=== PATIENT | male | born 1950 | race Caucasian/White ===

== ENCOUNTER 2020-08-22 17:57 | Inpatient (IN) | payer MEDICARE, MEDICAID ==
[~2020-08-22] VITALS: Ht 177.8 cm; Wt 93.0 kg
[2020-08-22 18:30] LABS: BASOPHILS # (AUTO) 0.1 /CMM (0.0-0.2); BASOPHILS % (AUTO) 0.3 % (0.0-2.0); EOSINOPHILS % (AUTO) 0.1 % (0.0-6.0); HEMATOCRIT 47 % (39-51); HEMOGLOBIN 14.7 g/dL (13.5-17.5); LYMPHOCYTES # (AUTO) 2.1 /CMM (0.8-4.8); MEAN CORPUSCULAR HGB CONC 31 g/dl (31.0-36.0); MEAN CORPUSCULAR VOLUME 101 fL (80-96); MONOCYTES # (AUTO) 1.2 /CMM (0.1-1.30); MONOCYTES % (AUTO) 7.5 % (2.0-12.0); NEUTROPHILS # (AUTO) 12.6 /CMM (1.8-8.9); NEUTROPHILS % (AUTO) 79.1 % (43.0-81.0); PLATELET COUNT (AUTO) 129 /CMM (150-450)
--- NOTE | 2020-08-22 18:45 | NUR ---
Hep-Lock started
--- NOTE | 2020-08-22 18:45 | NUR ---
The half-way facility called 911 after the patient was noted to have shortness of breath, with oxygen saturations recorded at 88% on room air
--- NOTE | 2020-08-22 18:45 | NUR ---
The patient was placed on the hallway; septic work-up initiated, blood culture 2 sets with lactic acid
[2020-08-22 18:49] LABS: CALCIUM, SERUM 8.4 mg/dL (8.5-10.1); CARBON DIOXIDE 33 mmol/L (21-32); CHLORIDE 115 mmol/L (98-107); CREATININE 0.8 mg/dL (0.6-1.3); GLUCOSE 109 mg/dL (74-106); POTASSIUM 4.6 mmol/L (3.5-5.1); SODIUM SERUM 150 mmol/L (136-145); UREA NITROGEN, BLOOD 28 mg/dL (7-18)
[2020-08-22 18:55] LABS: ALANINE AMINOTRANSFERASE 69 U/L (12-78); ALBUMIN 2.4 g/dL (3.4-5.0); ALKALINE PHOSPHATASE 108 U/L (46-116); ASPARTATE AMINOTRANSFERASE 49 U/L (15-37); BILIRUBIN,DIRECT 0.3 mg/dL (0.0-0.2); BILIRUBIN,TOTAL 0.5 mg/dL (0.2-1.0); TOTAL PROTEIN, SERUM 7.5 g/dL (6.4-8.2)
[2020-08-22] MEDS ORDERED: DEXAMETHASONE SOD PHOSPHATE 10 MG/ML VIAL IV ONE (19:30)
[2020-08-22] MEDS ORDERED: CEFTRIAXONE 1GM BAG (ER ONLY) 50 ML IV ONE (19:30)
[2020-08-22] MEDS ORDERED: AZITHROMYCIN 500 MG in IV D5W 250 ML IV ONE (19:30)
--- NOTE | 2020-08-22 19:30 | NUR ---
REC'D PT IN BED, PT ON NON RBR, NON VERBAL, SAT ABOVE 96%, PT HERE FOR SOB. COVID+. PT ON ISOLATION. VSS. NOT IN ANY DISTRESS, WCTM
[2020-08-22] MEDS ORDERED: IV NS 0.9% 1,000 ML IV ONE (20:00)
[2020-08-22] MEDS ORDERED: AZITHROMYCIN 500 MG VIAL ONE (20:09)
--- NOTE | 2020-08-22 20:29 | NUR ---
covid swab collected sentto lab
[2020-08-22] MEDS ORDERED: HYDROCODONE/APAP 5/325MG TABLET PO PRN (21:00)
[2020-08-22] MEDS ORDERED: ACETAMINOPHEN 325 MG TABLET PO PRN (21:00)
[2020-08-22] MEDS ORDERED: IV NS 0.9% 1,000 ML IV PRN (21:00)
[2020-08-22] MEDS ORDERED: ONDANSETRON HCL/PF 4 MG/2 ML VIAL IVP PRN (21:00)
[2020-08-22] MEDS ORDERED: ENOXAPARIN SODIUM 40 MG/0.4 ML DISP.SYRIN SQ SCH (21:00)
[2020-08-22] MEDS ORDERED: ZOLPIDEM TARTRATE 5 MG TABLET PO PRN (21:00)
[2020-08-22] MEDS ORDERED: MAG HYDROX/AL HYDROX/SIMETH 30 ML UDC PO PRN (21:00)
[2020-08-22 21:35] LABS: D-DIMER 0.81 mg/L(FEU (0.17-0.50)
--- NOTE | 2020-08-22 23:37 | NUR ---
CALLED AFTER HOUR PHARMACY TO VERIFY THE ADMITTING ORDERS.
[2020-08-23 00:29] LABS: BILIRUBIN,URINE NEGATIVE (NEGATIVE); COLOR,URINE YELLOW (YELLOW); LEUKOCYTE ESTERASE ,URINE MODERATE (NEGATIVE); NITRITE, URINE POSITIVE (NEGATIVE); PROTEIN,URINE 100 mg/dl (NEGATIVE); UGLUCOSE NEGATIVE (NEGATIVE)
[2020-08-23 00:44] LABS: BACTERIA,URINE 3+ /HPF (None Seen); SQUAMOUS EPITHELIAL CELL,UR Few /HPF (None Seen); WBC,URINE 81-100 /HPF (0-3)
[2020-08-23] MEDS ORDERED: ENOXAPARIN SODIUM 40 MG/0.4 ML DISP.SYRIN SQ ONE ×2 (01:15→13:49)
[2020-08-23 05:41] LABS: BASOPHILS % (AUTO) 0.1 % (0.0-2.0); EOSINOPHILS % (AUTO) 0.1 % (0.0-6.0); HEMATOCRIT 43 % (39-51); HEMOGLOBIN 13.6 g/dL (13.5-17.5); LYMPHOCYTES # (AUTO) 1.5 /CMM (0.8-4.8); LYMPHOCYTES % (AUTO) 11.1 % (20.0-44.0); MEAN CORPUSCULAR HGB CONC 31 g/dl (31.0-36.0); MEAN CORPUSCULAR VOLUME 100 fL (80-96); MONOCYTES # (AUTO) 0.8 /CMM (0.1-1.30); NEUTROPHILS # (AUTO) 11.5 /CMM (1.8-8.9); NEUTROPHILS % (AUTO) 82.7 % (43.0-81.0); PLATELET COUNT (AUTO) 124 /CMM (150-450); RED BLOOD CELL COUNT(AUTO) 4.34 MIL/uL (4.5-6.0); WHITE BLOOD COUNT (AUTO) 13.9 K/uL (4.3-11.0)
[2020-08-23 06:06] LABS: CALCIUM, SERUM 8.3 mg/dL (8.5-10.1); CREATININE 0.6 mg/dL (0.6-1.3); MAGNESIUM 2.8 mg/dL (1.8-2.4); PHOSPHORUS 2.9 mg/dL (2.5-4.9)
--- NOTE | 2020-08-23 06:19 | NUR ---
NO ACUTE EVENTS, F/C DRANIED, OUTPUT ABOUT 800CC, ON MONITOR, VSS, NAD. WCTM
[2020-08-23] MEDS: ENOXAPARIN SODIUM 40 MG/0.4 ML DISP.SYRIN SQ SCH (13:00)
--- NOTE | 2020-08-23 13:00 | NUR ---
adl care provided. x1 bm today. cleaned pt, turned and repositioned for comfort. kept clean and dry
[2020-08-23] MEDS ORDERED: DEXAMETHASONE SOD PHOSPHATE 10 MG/ML VIAL IV ONE (16:00)
[2020-08-23] MEDS ORDERED: DEXAMETHASONE SOD PHOSPHATE 10 MG/ML VIAL ONE (16:09)
--- NOTE | 2020-08-23 16:17 | NUR ---
pt gtube flushed with 200cc h20 per md orders
[2020-08-23] MEDS: ENSURE ENLIVE 237 ML LIQUID (VANILLA) PO SCH (17:26)
[2020-08-23] MEDS ORDERED: CEFTRIAXONE 1GM BAG (ER ONLY) 50 ML IV ONE (17:47)
[2020-08-23] MEDS ORDERED: CEFTRIAXONE 1 G in IV D5W 50 ML IV SCH (19:00)
[2020-08-23] MEDS ORDERED: AZITHROMYCIN 500 MG in IV D5W 250 ML IV SCH (20:00)
--- NOTE | 2020-08-23 23:33 | NUR ---
PATIENT IS AWAKE. PATIENT IS DIFFICULT TO UNDERSTAND DUE TO DISABILITY. PATIENT IS ASKED IF HE IS OKAY. PATIENT NODS AND STATES YES. PATIENT'S CALL LIGHT IS WITHIN REACH. BED IS AT THE LOWEST POSITION. PATIENT IS BREATHING EVENLY AND UNLABORED ON NON-REBREATHER 15L. WILL CONTINUE TO MONITOR THE PATIENT CLOSELY.
[2020-08-24] MEDS ORDERED: ENOXAPARIN SODIUM 40 MG/0.4 ML DISP.SYRIN SQ ONE ×2 (00:04→10:34)
[2020-08-24] MEDS: ENOXAPARIN SODIUM 40 MG/0.4 ML DISP.SYRIN SQ SCH ×2 (00:11→11:12)
[2020-08-24 05:33] LABS: BASOPHILS % (AUTO) 0.4 % (0.0-2.0); HEMATOCRIT 39 % (39-51); HEMOGLOBIN 12.4 g/dL (13.5-17.5); LYMPHOCYTES # (AUTO) 1.3 /CMM (0.8-4.8); LYMPHOCYTES % (AUTO) 13.1 % (20.0-44.0); MEAN CORPUSCULAR HGB CONC 32 g/dl (31.0-36.0); MEAN CORPUSCULAR VOLUME 100 fL (80-96); MONOCYTES # (AUTO) 0.9 /CMM (0.1-1.30); MONOCYTES % (AUTO) 9.2 % (2.0-12.0); NEUTROPHILS # (AUTO) 7.9 /CMM (1.8-8.9); NEUTROPHILS % (AUTO) 77.3 % (43.0-81.0); PLATELET COUNT (AUTO) 126 /CMM (150-450); RED BLOOD CELL COUNT(AUTO) 3.88 MIL/uL (4.5-6.0); WHITE BLOOD COUNT (AUTO) 10.2 K/uL (4.3-11.0)
[2020-08-24] MEDS ORDERED: VANCOMYCIN 1 GM in IV D5W 250ml IV SCH (06:00)
[2020-08-24 06:02] LABS: CALCIUM, SERUM 8.2 mg/dL (8.5-10.1); CREATININE 0.6 mg/dL (0.6-1.3)
[2020-08-24] MEDS ORDERED: DEXAMETHASONE SOD PHOSPHATE 10 MG/ML VIAL ONE (09:50)
[2020-08-24] MEDS: ENSURE ENLIVE 237 ML LIQUID (VANILLA) PO SCH ×4 (10:19→19:04)
[2020-08-24] MEDS: DEXAMETHASONE SOD PHOSPHATE 10 MG/ML VIAL IV SCH (10:20)
--- NOTE | 2020-08-24 15:40 | NUR ---
REPORT GIVEN TO JORDAN GOTTLIEB FOR MICHELLE
--- NOTE | 2020-08-24 16:03 | NUR ---
EGG CRATER NOTES RECEIVED PT FROM E.R. STAFF VIA VALENTIN, PT IS AWAKE, ALERT AND VERBALLY RESPONSIVE, NOT IN DISTRESS, NO SIGN OF PAIN, ASSISTED TO BED, MADE COMFORTABLE, ROOM SET UP ORIENTATION PROVIDED TO PT, KEPT WARM AND COMFORTABLE IN BED.
--- NOTE | 2020-08-24 16:03 | NUR ---
PT TRANSPORTED TO UNIT ON GURNEY WITH EMT AND RN AT BEDSIDE W/ ACLS PROTOCOL. NAD NOTED DURING TRANSPORT
[2020-08-24 16:39] VITALS: BP 126/72
--- NOTE | 2020-08-24 19:30 | NUR ---
telecommunications facility examiner opening note received patient in bed. a/ox1. unable to make out what hes trying to say. on oxygen 15l/min via nonrebreather. respirations are even and unlabored. no s/s sob. no c/o pain at this time. external tele monitor reads sinus tach with bbb hr 103. in no apparent distress. iv access in left hand #20 patent and saline locked. gtube is present, aspirated, no residual, flushed with no resistance. foleuy catheter is present, draining to gravity. bed is low and locked, hob elevated in semi fowlers, side rials up x3, call light within reach. will continue to monitor throughout shift.
[2020-08-24 20:00] VITALS: BP 142/74
[2020-08-24] MEDS ORDERED: MEROPENEM 500 MG in IV NS 0.9% 50 ML IV SCH (21:00)
[2020-08-24] MEDS ORDERED: VANCOMYCIN 1 GM in IV D5W 250ml IV ONE ×2 (21:00→23:45)
[2020-08-24] MEDS: IV D5W 1,000 ML IV PRN (21:47)
[2020-08-24] MEDS: MEROPENEM 1 G in IV NS 0.9% 100 ML IV SCH (21:47)
[2020-08-24] MEDS ORDERED: VANCOMYCIN 500 MG in IV D5W 100ml IV ONE (22:00)
--- NOTE | 2020-08-24 22:07 | NUR ---
telegraph repeater mechanic notes informed Tano Gil DNP that patient has 2 vanco orders scheduled for tonight. 500mg vanco once and vanco 1gm once, asked for clarification if i should give both doses. MD telephone order no, give 1gm now and pharmacy to dose. Asked if 0600 vanco 1gm should also be discontinued, states yes DC, pharmacy will dose. order noted and carried out.
[2020-08-25] VITALS: BP 117/65
[2020-08-25] MEDS: ENSURE ENLIVE 237 ML LIQUID (VANILLA) PO SCH ×3 (00:31→12:16)
[2020-08-25] MEDS: ENOXAPARIN SODIUM 40 MG/0.4 ML DISP.SYRIN SQ SCH ×2 (00:34→12:21)
--- NOTE | 2020-08-25 00:37 | NUR ---
television installer note administered the scheduled 2100 vanco 1gm late d/t merrem running for 3 hours. vanco 1gm scheduled for 2[address] [facility] d/t already scanned the 2100 dose now.
[2020-08-25 04:00] VITALS: BP 117/64
[2020-08-25] MEDS: MEROPENEM 1 G in IV NS 0.9% 100 ML IV SCH ×3 (05:11→20:08)
[2020-08-25] MEDS ORDERED: VANCOMYCIN 1 GM in IV D5W 250ml IV SCH (06:00)
--- NOTE | 2020-08-25 07:05 | NUR ---
telecommunications engineer closing note patient resting in bed. a/ox1. . remains on oxygen 15l/min via nonrebreather. o2 sat range from 90-96%. no pain. external tele monitor reads sinus tach. no distress. iv access in left hand #20 patent and saline locked. gtube is maintained, clamped. cortez catheter is maintained, draining to gravity. bed remains low and locked, hob elevated in semi fowlers, side rials up x3, call light within reach. will endorse ton ext shift.
--- NOTE | 2020-08-25 07:40 | NUR ---
CARTRIDGE GAUGER OPENING NOTE PATIENT IS IN BED RESTING. PATIENT IS IN NO ACUTE DISTRESS. PATIENT IS ON 15L NON REBREATHER MASK. NO SOB NOTED. HOB ELEVATED. PATIENT IS ON TELE MONITOR READING ST WITH BBB 92. SAFETY PRECAUTIONS ARE IN PLACE. BED IS LOCKED AND IN THE LOWEST POSITION. CALL LIGHT WITHIN REACH. CONTINUE CLOSELY MONITORING PATIENT THOUGHT OUT THE SHIFT.
--- NOTE | 2020-08-25 08:26 | NUR ---
WOUND CARE CONSULT: REVIEWED CHART, NURSING DOCUMENTATION AND PHOTOS WHICH INDICATE SACRAL PARTIAL THICKNESS WOUND, PRESENT ON ADMISSION. RECOMMENDATIONS MADE FOR SKIN PROTECTION. DISCUSSED WITH NURSING STAFF. PT BECOMES AGITATED AT TIMES PER NURSING STAFF. M D IN AGREEMENT WITH PLAN OF CARE.
[2020-08-25] MEDS ORDERED: HYDROGEL DRESSING 90 GM TUBE TP PRN (09:00)
[2020-08-25] MEDS: Z GUARD REMEDY 2 OZ OINT TP SCH (09:16)
[2020-08-25] MEDS: HYDROGEL DRESSING 90 GM TUBE TP SCH (09:17)
[2020-08-25] MEDS: VANCOMYCIN 1 GM in IV D5W 250ml IV SCH ×2 (10:20→16:31)
[2020-08-25] MEDS: DEXAMETHASONE SOD PHOSPHATE 10 MG/ML VIAL IV SCH (10:20)
[2020-08-25 13:57] LABS: ABG BASE EXCESS 3.8 mmol/L; ABG OXYGEN SATURATION 90.2 % (92.0-98.5); ABG PCO2 62.5 mmHg (35.0-45.0); ABG PH 7.323 (7.350-7.450); ABG PO2 59.5 mmHg (75.0-100.0); AaDO2 445.3 mmHg; COHb 0.4 % (0.5-1.5); MetHb 0.2 % (0.0-1.5); O2Hb 89.7 % (94.0-97.0); SITE, ABG Right Radial; VENT MODE, BG 15L NRB
[2020-08-25 15:23] LABS: CALCIUM, SERUM 8.8 mg/dL (8.5-10.1); CREATININE 0.7 mg/dL (0.6-1.3); POTASSIUM 4.4 mmol/L (3.5-5.1)
[2020-08-25] MEDS ORDERED: JEVITY 1.2 CAL 1,000 ML BOTTLE GT PRN ×2 (16:00→18:25)
[2020-08-25] MEDS: IPRATROPIUM/ALBUTEROL INHALER IH SCH (18:00)
--- NOTE | 2020-08-25 18:37 | NUR ---
SHOEBLACK CLOSING NOTE PATIENT KEPT CLEAN AND DRY THOROUGH OUT THE SHIFT. NO SIGNS OF CUTE DISTRESS NOTED. PATIENT IS ON OXYGEN 15L NRB MASK. NO SOB NOTED. HOB ELEVATED. PATIENT IS ON SENIOR CYBER INTELLIGENCE ANALYST READING ST WITH BBB 98. SAFETY PRECAUTIONS ARE IN PLACE. BED IS LOCKED AND IN LOWEST POSITION. SIDE RAILS ARE UP ALL LIGHT WITHIN REACH. ENDORSE PATIENT FOR CONTINUES CARE TO FISCAL ECONOMIST NURSE.
--- NOTE | 2020-08-25 19:30 | NUR ---
RN NOTE RECEIVED PATIENT IN BED, ON SEMI BULLOCK'S. PATIENT IN NO S/SX OF ACUTE DISTRESS AT THIS TIME. PATIENT'S BREATHING IS EVEN AND UNLABORED. PATIENT IS ON 15L OF OXYGEN VIA NON REBREATHER MASK, O2 SAT AT 93%. PATIENT ON TELE MONITOR READING SR WITH BBB, HR IS 89. NOTED IV SITE AT R HAND 22G WITH D5W INFUSING AT 75 ML/HR, PATENT AND FLUSHING WELL, NO S/S OF INFECTION OR INFILTRATION. NOTED GTUBE INTACT, MINIMAL RESIDUAL NOTED, WITH JEVITY 1.2 REGULATED AT 30 ML/HR. CARRERA CATHETER CONNECTED TO URINE BAG IN PLACE, DRAINING TO A CLEAR YELLOW URINE. SAFETY MEASURES IMPLEMENTED PER PROTOCOL. PATIENT BED ALARM IS ON. HEAD OF BED ELEVATED. BED IS LOCKED, IN LOWEST POSITION AND SIDE RAILS UP. CALL LIGHT WITHIN REACH OF THE PATIENT. WILL CONTINUE TO MONITOR AND REASSESS FOR ANY CHANGES.
[2020-08-25 20:00] VITALS: BP 119/73
[2020-08-26] VITALS (7 sets, daily range): BP systolic 117–144; BP diastolic 72–85
[2020-08-26] MEDS: ENOXAPARIN SODIUM 40 MG/0.4 ML DISP.SYRIN SQ SCH ×2 (00:33→12:55)
[2020-08-26] MEDS: VANCOMYCIN 1 GM in IV D5W 250ml IV SCH ×2 (00:33→09:00)
[2020-08-26] MEDS: MEROPENEM 1 G in IV NS 0.9% 100 ML IV SCH ×3 (05:02→20:00)
[2020-08-26] MEDS: IV D5W 1,000 ML IV PRN (05:08)
[2020-08-26] MEDS: IPRATROPIUM/ALBUTEROL INHALER IH SCH ×4 (05:25→17:54)
[2020-08-26 06:31] LABS: CALCIUM, SERUM 8.7 mg/dL (8.5-10.1); CREATININE 0.5 mg/dL (0.6-1.3); POTASSIUM 4.1 mmol/L (3.5-5.1)
--- NOTE | 2020-08-26 08:00 | NUR ---
CARPET CUTTER OPENING NOTE PATIENT IS IN BED RESTING. PATIENT IS IN NO ACUTE DISTRESS. PATIENT IS ON 15L NON REBREATHER MASK. O2 SAT 89% DENIES SOB. HOB ELEVATED. PATIENT IS ON TELE MONITOR READING ST WITH BBB . SAFETY PRECAUTIONS ARE IN PLACE. BED IS LOCKED AND IN THE LOWEST POSITION. TURNED EVERY TWO HRS.CALL LIGHT WITHIN REACH. CLOSELY MONITORED
[2020-08-26] MEDS: DEXAMETHASONE SOD PHOSPHATE 10 MG/ML VIAL IV SCH (09:27)
[2020-08-26] MEDS: Z GUARD REMEDY 2 OZ OINT TP PRN (09:28)
[2020-08-26] MEDS: Z GUARD REMEDY 2 OZ OINT TP SCH (09:29)
[2020-08-26] MEDS: HYDROGEL DRESSING 90 GM TUBE TP SCH (09:29)
--- NOTE | 2020-08-26 09:30 | NUR ---
Vanco trough level is 27-held vanco IV notified pharmacist.
[2020-08-26 10:05] LABS: ABG BASE EXCESS 7.4 mmol/L; ABG PCO2 54.6 mmHg (35.0-45.0); ABG PH 7.408 (7.350-7.450); ABG PO2 47.4 mmHg (75.0-100.0); AaDO2 465.7 mmHg; COHb 0.8 % (0.5-1.5); MetHb 0.3 % (0.0-1.5); O2Hb 83.1 % (94.0-97.0); SITE, ABG Right Radial; VENT MODE, BG NRB
--- NOTE | 2020-08-26 10:32 | NUR ---
ABG RESULT WAS IN AND NOTIFIED DR DURBIN WITH ORDERS TO PUT PT ON HIGH FLOW AT 60 LITERS O2.
--- NOTE | 2020-08-26 12:00 | NUR ---
PT MADE SEVERAL ATTEMPTS OF PULLING HIS O2 TUBINGS VIA HIGH FLOW AT 60L INSPITE OF EXPLAINING THE RISKS AND BENEFITS.NOTIFIED LEONOR SINGLETARY AND OBTAINED RESTRAINT ORDERS FOR BILATERAL SOFT WRIST RESTRAINTS.
[2020-08-26 13:49] LABS: ABG BASE EXCESS 6.3 mmol/L; ABG OXYGEN SATURATION 98.2 % (92.0-98.5); ABG PCO2 46.3 mmHg (35.0-45.0); ABG PH 7.448 (7.350-7.450); ABG PO2 113.7 mmHg (75.0-100.0); COHb 0.1 % (0.5-1.5); MetHb 0.3 % (0.0-1.5); O2Hb 97.8 % (94.0-97.0); SITE, ABG Right Radial
--- NOTE | 2020-08-26 17:55 | NUR ---
pt tolerated GT Jevity feeding well with no residuals at 60 ml/hr advanced Jevity feeding to 70 ml/hr and will monitor.
[2020-08-26] MEDS: JEVITY 1.2 CAL 1,000 ML BOTTLE GT PRN (18:25)
--- NOTE | 2020-08-26 19:10 | NUR ---
TELE/RN OPENING NOTES: PT. IS A/OX1. VERBALLY RESPONSIVE, NOT TO CLEAR D/T NASAL CARCINOMA. ABLE TO VERBALIZE NEEDS. ON TELE WITH READING OF SR. CARRERA CATH NOTED DRAINING MISSAEL COLORED URINE. NOTED WITH ACUTE MEDICAL SOFT WRIST RESTRAINTS D/T PATIENT PULLING OUT HIS HIGH FLOW NASAL CANNULA. GTUBE FEEDING JEVITY 1.2 RUNNING AT 70MLS/HR. NO RESIDUALS NOTED. IV ON THE RIGHT HAND #22G INTACT AND PATENT, SL. SAFETY MEASURES IN PLACE AND BED IN LOW, LOCKED POSITION WITH SR UPX2. CALL LIGHT WITHIN REACH. WILL CONTINUE TO MONITOR ACCORDINGLY.
[2020-08-26] MEDS: VANCOMYCIN 1 GM in IV D5W 250 ML IV SCH (23:10)
--- NOTE | 2020-08-26 23:10 | NUR ---
TELE/RN NOTES: PT.'S VANCO TROUGH RESULT CAME BACK. 16. OKAY TO ADMINISTER VANCOMYCIN 1G 250ML ORDERED Q12H.
[2020-08-27] VITALS (9 sets, daily range): BP systolic 128–138; BP diastolic 65–86
[2020-08-27] MEDS: ENOXAPARIN SODIUM 40 MG/0.4 ML DISP.SYRIN SQ SCH ×3 (00:28→23:21)
[2020-08-27] MEDS: IPRATROPIUM/ALBUTEROL INHALER IH SCH ×5 (00:37→23:16)
[2020-08-27] MEDS: MEROPENEM 1 G in IV NS 0.9% 100 ML IV SCH ×3 (04:20→21:25)
--- NOTE | 2020-08-27 06:58 | NUR ---
TELE/RN CLOSING NOTES: PT. REMAINS A/OX1. VERY COOPERATIVE WITH PT CARE. VERBALLY RESPONSIVE, ON TELE WITH READING OF SR. CARRERA CATH NOTED DRAINING MISSAEL COLORED URINE. NOTED WITH ACUTE MEDICAL SOFT WRIST RESTRAINTS D/T PATIENT PULLING OUT HIS HIGH FLOW NASAL CANNULA. SKIN AND CIRCULATION CHECKED. GTUBE FEEDING JEVITY 1.2 RUNNING AT 70MLS/HR. TOLERATING WELL. NO RESIDUALS NOTED. FLUSHED WITH 200 CC OF WATER ORDERED. IV ON THE RIGHT HAND #22G INTACT AND PATENT, SL. SAFETY MEASURES IN PLACE AND BED IN LOW, LOCKED POSITION WITH SR UPX2. CALL LIGHT WITHIN REACH. ALL DUE MEDS GIVEN ORDERED. ALL NURSING NEEDS MET AND RENDERED. WILL ENDORSE TO DAY SHIFT FOR MICHELLE.
--- NOTE | 2020-08-27 07:00 | NUR ---
RN OPENING NOTES RECEIVED PT AWAKE AT THIS TIME. PT IS AOX1. NO SOB NOTED, NO S/S OF ANY APPARENT DISTRESS NOTED. NO C/O PAIN NOTED AT THIS TIME. RESPIRATIONS ARE EVEN AND UNLABORED WITH EQUAL RISE AND FALL IN CHEST. PT NOTED ON HIGH FLOW OXYGEN AT 60LPM WITH FIO2 @ 100%. PT ON EXTERNAL ASSISTANT KITCHEN MANAGER READING SR IN THE 90s. IV ACCESS NOTED IN RIGHT HAND G#22, INTACT, PATENT AND FLUSHING WELL. SAFETY PRECAUTION IN PLACE AND MAINTAINED AT ALL TIMES. BED IN LOWEST LOCKED POSITION, HOB ELEVATED, SIDE RAILS UP X 2, CALL LIGHT AND TABLE WITHIN REACH . WILL CONTINUE WITH PLAN OF CARE .
[2020-08-27 07:58] LABS: BASOPHILS % (AUTO) 0.2 % (0.0-2.0); EOSINOPHILS % (AUTO) 0.6 % (0.0-6.0); HEMATOCRIT 39 % (39-51); HEMOGLOBIN 12.8 g/dL (13.5-17.5); LYMPHOCYTES # (AUTO) 2.1 /CMM (0.8-4.8); LYMPHOCYTES % (AUTO) 16.1 % (20.0-44.0); MEAN CORPUSCULAR HGB CONC 33 g/dl (31.0-36.0); MEAN CORPUSCULAR VOLUME 95 fL (80-96); MONOCYTES # (AUTO) 1.7 /CMM (0.1-1.30); MONOCYTES % (AUTO) 13.1 % (2.0-12.0); NEUTROPHILS # (AUTO) 9.1 /CMM (1.8-8.9); PLATELET COUNT (AUTO) 179 /CMM (150-450); RED BLOOD CELL COUNT(AUTO) 4.12 MIL/uL (4.5-6.0)
[2020-08-27 08:18] LABS: CALCIUM, SERUM 8.6 mg/dL (8.5-10.1); CREATININE 0.5 mg/dL (0.6-1.3); MAGNESIUM 2.2 mg/dL (1.8-2.4); PHOSPHORUS 4.1 mg/dL (2.5-4.9); POTASSIUM 4.6 mmol/L (3.5-5.1)
[2020-08-27] MEDS: DEXAMETHASONE SOD PHOSPHATE 10 MG/ML VIAL IV SCH (09:22)
[2020-08-27] MEDS: HYDROGEL DRESSING 90 GM TUBE TP SCH (09:23)
[2020-08-27] MEDS: Z GUARD REMEDY 2 OZ OINT TP SCH (09:24)
[2020-08-27] MEDS: VANCOMYCIN 1 GM in IV D5W 250 ML IV SCH ×2 (10:47→22:52)
--- NOTE | 2020-08-27 13:00 | NUR ---
PT IV ACCESS DISLODGED, PRESSURE APPLIED, SECURED WITH GAUZE AND TAPE. NO S/O BLEEDING NOTED. WILL CONTINUE TO MONITOR
--- NOTE | 2020-08-27 13:05 | NUR ---
INSERTED IV ACCESS IN RFA G#22, AT THIS TIME. GOOD BLOOD RETURN NOTED, IV INTACT, PATENT AND FLUSHING WELL. PT TOLERATED WELL. WILL CONTINUE TO MONITOR
[2020-08-27 13:51] LABS: BAND % (MANUAL) 5 % (0.0-5.0); LYMPHOCYTES % (MANUAL) 15 % (16-48); MONOCYTES % (MANUAL) 16 % (0-11.0); MYELOCYTES % 3 % (0-0); NEUTROPHILS % (MANUAL) 61 (42-76)
[2020-08-27] MEDS: JEVITY 1.2 CAL 1,000 ML BOTTLE GT PRN (15:40)
--- NOTE | 2020-08-27 19:00 | NUR ---
RN CLOSING NOTES PT AWAKE IN BED AT THIS TIME. PT REMAINED STABLE THROUGHOUT SHIFT. ALL CARE, NEED, MEDICATIONS AND TREATMENT ADMINISTERED ANTICIPATED PER ORDER. PT KEPT CLEAN AND DRY. G-TUBE CARE PROVIDED. PT STABLE ON HIGH FLOW SATURATING IN THE 90s. CARRERA CATHETER CARE PROVIDED. PT REPOSITIONED Q2HR AND PRN. ASPIRATION AND SAFETY PRECAUTION IN PLACE AND MAINTAINED AT ALL TIMES. BED IN LOWEST LOCKED POSITION, HOB ELEVATED, SIDE RAILS UP X 2, CALL LIGHT AND TABLE WITHIN REACH. ENDORSED TO MAGNETO REPAIRER NURSE FOR MICHELLE
--- NOTE | 2020-08-27 19:20 | NUR ---
TELE/RN OPENING NOTES: PT. IS A/OX1. VERBALLY RESPONSIVE. ABLE TO VERBALIZE NEEDS. ON TELE MONITOR WITH READING OF ST 103 AT THIS TIME. CARRERA CATH NOTED DRAINING MISSAEL COLORED URINE. NOTED WITH ACUTE MEDICAL SOFT WRIST RESTRAINTS D/T PATIENT PULLING OUT HIS HIGH FLOW NASAL CANNULA. G-TUBE FEEDING JEVITY 1.2 RUNNING AT 70MLS/HR. NO RESIDUALS NOTED. TO BE FLUSHED 200CC PER SHIFT. NEW IV MIDLINE INSERTED BY MARK MENDIOLA NURSE. ORDERED BY STU SANCHEZ. IV ACCESS LOCATED ON THE ADITYA MIDLINE #18G INTACT AND PATENT, SL. SAFETY MEASURES IN PLACE AND BED IN LOW, LOCKED POSITION WITH SR UPX2. CALL LIGHT WITHIN REACH. WILL CONTINUE TO MONITOR ACCORDINGLY.
[2020-08-28] VITALS: BP_SYST 151; BP_DIAS 47; BP_DIAS 89
[2020-08-28 04:00] VITALS: BP 133/78
[2020-08-28] MEDS: MEROPENEM 1 G in IV NS 0.9% 100 ML IV SCH ×2 (04:08→13:18)
[2020-08-28] MEDS: IPRATROPIUM/ALBUTEROL INHALER IH SCH ×4 (05:21→23:25)
--- NOTE | 2020-08-28 07:04 | NUR ---
FILM PROCESSOR OPENING NOTES RECEIVED PT AWAKE IN BED AT THIS TIME. PT IS AOX1. PT MUMBLES. NO SOB NOTED, NO S/S OF ANY APPARENT DISTRESS NOTED. NO C/O PAIN NOTED AT THIS TIME. RESPIRATIONS ARE EVEN AND UNLABORED WITH EQUAL RISE AND FALL IN CHEST. PT ON HIGH FLOW OXYGEN AT 60LPM WITH FIO2 @ 100%. PT NOTED WITH BILATERAL RESTRAINTS, SKIN AROUND RESTRAINTS INTACT, GOOD CIRCULATION NOTED, CAPILLARY REFILL <3SECONDS, PULSES PRESENT BILATERALLY. PT ON EXTERNAL ANIMAL CONTROL OFFICER READING SR 99. IV ACCESS NOTED IN RFA G#22 AND ADITYA MIDLINE, BOTH INTACT, PATENT AND FLUSHING WELL. CARRERA CATHETER IN PLACE DRAINING TO GRAVITY CLEAR TEA COLOR URINE OUTPUT. ASPIRATION, RESPIRATORY AND SAFETY PRECAUTION IN PLACE AND MAINTAINED AT ALL TIMES. BED IN LOWEST LOCKED POSITION, HOB ELEVATED, SIDE RAILS UP X 2, CALL LIGHT AND TABLE WITHIN REACH. WILL CONTINUE WITH PLAN OF CARE.
--- NOTE | 2020-08-28 07:04 | NUR ---
CELL CHANGER OPENING NOTES RECEIVED PT AWAKE IN BED AT THIS TIME. PT IS AOX1. PT MUMBLES. NO SOB NOTED, NO S/S OF ANY APPARENT DISTRESS NOTED. NO C/O PAIN NOTED AT THIS TIME. RESPIRATIONS ARE EVEN AND UNLABORED WITH EQUAL RISE AND FALL IN CHEST. PT ON HIGH FLOW OXYGEN AT 60LPM WITH FIO2 @ 100%. PT NOTED WITH BILATERAL RESTRAINTS, SKIN AROUND RESTRAINTS INTACT, GOOD CIRCULATION NOTED, CAPILLARY REFILL <3SECONDS, PULSES PRESENT BILATERALLY. PT ON EXTERNAL EPIC CUPID ANALYST READING SR 99. IV ACCESS NOTED IN RFA G#22 AND ADITYA MIDLINE, BOTH INTACT, PATENT AND FLUSHING WELL. CARRERA CATHETER IN PLACE DRAINING TO GRAVITY CLEAR TEA COLOR URINE OUTPUT. ASPIRATION, RESPIRATORY AND SAFETY PRECAUTION IN PLACE AND MAINTAINED AT ALL TIMES. BED IN LOWEST LOCKED POSITION, HOB ELEVATED, SIDE RAILS UP X 2, CALL LIGHT AND TABLE WITHIN REACH. WILL CONTINUE WITH PLAN OF CARE.
[2020-08-28] MEDS: JEVITY 1.2 CAL 1,000 ML BOTTLE GT PRN (07:21)
--- NOTE | 2020-08-28 07:40 | NUR ---
TELE/RN CLOSING NOTES: PT. REMAINS A/OX1. VERY COOPERATIVE WITH PT CARE. NO SIGNIFICANT CHANGES IN CONDITION. TOLERATING 60L FLOW RATE ON NC FIO2 100%. ON TELE WITH READING OF SR. CARRERA CATH NOTED DRAINING MISSAEL COLORED URINE. NOTED WITH ACUTE MEDICAL SOFT WRIST RESTRAINTS D/T PATIENT PULLING OUT HIS HIGH FLOW NASAL CANNULA. SKIN AND CIRCULATION CHECKED. GTUBE FEEDING JEVITY 1.2 RUNNING AT 70MLS/HR. TOLERATING WELL. NO RESIDUALS NOTED. FLUSHED WITH 200 CC OF WATER ORDERED. IV ACCES ARE WORKING, INTACT AND PATENT, SL. WOUND TREATMENT DONE. SAFETY MEASURES IN PLACE AND BED IN LOW, LOCKED POSITION WITH SR UPX2. CALL LIGHT WITHIN REACH. ALL DUE MEDS GIVEN ORDERED. ALL NURSING NEEDS MET AND RENDERED. WILL ENDORSE TO DAY SHIFT FOR MICHELLE.
[2020-08-28 08:00] VITALS: BP 122/62
[2020-08-28 08:28] LABS: BASOPHILS % (AUTO) 0.4 % (0.0-2.0); HEMATOCRIT 39 % (39-51); HEMOGLOBIN 12.5 g/dL (13.5-17.5); LYMPHOCYTES # (AUTO) 1.9 /CMM (0.8-4.8); MEAN CORPUSCULAR HGB CONC 33 g/dl (31.0-36.0); MEAN CORPUSCULAR VOLUME 95 fL (80-96); MONOCYTES # (AUTO) 1.8 /CMM (0.1-1.30); MONOCYTES % (AUTO) 13.4 % (2.0-12.0); NEUTROPHILS # (AUTO) 9.5 /CMM (1.8-8.9); NEUTROPHILS % (AUTO) 71.2 % (43.0-81.0); PLATELET COUNT (AUTO) 209 /CMM (150-450); RED BLOOD CELL COUNT(AUTO) 4.06 MIL/uL (4.5-6.0); WHITE BLOOD COUNT (AUTO) 13.3 K/uL (4.3-11.0)
[2020-08-28] MEDS: Z GUARD REMEDY 2 OZ OINT TP SCH (09:45)
[2020-08-28] MEDS: DEXAMETHASONE SOD PHOSPHATE 10 MG/ML VIAL IV SCH (09:45)
[2020-08-28] MEDS: HYDROGEL DRESSING 90 GM TUBE TP SCH (09:51)
[2020-08-28] MEDS: VANCOMYCIN 1 GM in IV D5W 250 ML IV SCH (10:00)
[2020-08-28 10:29] LABS: CALCIUM, SERUM 8.5 mg/dL (8.5-10.1); CREATININE 0.5 mg/dL (0.6-1.3); MAGNESIUM 2.1 mg/dL (1.8-2.4); PHOSPHORUS 3.4 mg/dL (2.5-4.9); POTASSIUM 4.7 mmol/L (3.5-5.1)
[2020-08-28] MEDS: ENOXAPARIN SODIUM 40 MG/0.4 ML DISP.SYRIN SQ SCH ×2 (12:07→23:24)
--- NOTE | 2020-08-28 13:18 | NUR ---
PT'S VANCO TROUGH LEVEL 22, VANCOMYCIN IV HELD AT THIS TIME. WILL CONTINUE WITH PLAN OF CARE
--- NOTE | 2020-08-28 15:04 | NUR ---
PT VANCO TROUGH LEVEL 22, STUART FROM PHARMACY CALLED AND INFORMED NURSE THAT VANCOMYCIN DOSE WAS READJUSTED, REQUESTING NURSE TO ADMINISTER 1800 DOSE. WILL CONTINUE TO MONITOR
[2020-08-28 16:00] VITALS: BP 118/73
[2020-08-28] MEDS ORDERED: VANCOMYCIN 1 GM in IV D5W 250 ML IV SCH (18:00)
--- NOTE | 2020-08-28 19:10 | NUR ---
TELE/RN OPENING NOTES: PT. IS A/OX1. VERBALLY RESPONSIVE. CURRENTLY ON NRB 15L, TOLERATING WELL. ON TELE MONITOR WITH READING OF SR 90S AT THIS TIME. CARRERA CATH NOTED DRAINING MISSAEL COLORED URINE. NOTED WITH ACUTE MEDICAL SOFT WRIST RESTRAINTS D/T PATIENT PULLING OUT HIS HIGH FLOW NASAL CANNULA. G-TUBE FEEDING JEVITY 1.2 RUNNING AT 70MLS/HR. NO RESIDUALS NOTED. TO BE FLUSHED 200CC PER SHIFT. IV ACCESS LOCATED ON THE ADITYA MIDLINE #18G INTACT AND PATENT, SL. SAFETY MEASURES IN PLACE AND BED IN LOW, LOCKED POSITION WITH SR UPX2. CALL LIGHT WITHIN REACH. WILL CONTINUE TO MONITOR ACCORDINGLY.
--- NOTE | 2020-08-28 19:35 | NUR ---
RN CLOSING NOTES PT AWAKE IN BED AT THIS TIME. PT REMAINED STABLE THROUGHOUT SHIFT. ALL CARE, NEED, MEDICATIONS AND TREATMENT ADMINISTERED ANTICIPATED PER ORDER. PT TOLERATED TUBE FEEDING WELL. WOUND TREATMENT ADMINISTERED PER ORDER. CARRERA CATHETER CARE PROVIDED. SKIN UNDER RESTRAINTS ASSESSED, GOOD CIRCULATION NOTED, CAPILLARY REFILL <3SECONDS, PULSES PRESENT BILATERALLY, SKIN INTACT, RESTRAINTS VACATION PROVIDED Q2HRS AND PRN. ASPIRATION AND SAFETY PRECAUTION IN PLACE AND MAINTAINED AT ALL TIMES. BED IN LOWEST LOCKED POSITION, HOB ELEVATED, SIDE RAILS UP X 2, CALL LIGHT AND TABLE WITHIN REACH. ENDORSED TO ROAD COMMISSIONER NURSE FOR MICHELLE
[2020-08-28 20:00] VITALS: BP 114/58
[2020-08-28] MEDS ORDERED: PIPERACILLIN /TAZOBACTAM 3.375 G in IV D5W 50 ML IV SCH (21:00)
[2020-08-28] MEDS ORDERED: PIPERACILLIN /TAZOBACTAM 3.375 G VIAL IV ONE ×2 (21:31→23:08)
[2020-08-28] MEDS: ZOSYN IVPB 3.375 G in IV D5W 50ml IV SCH (21:41)
[2020-08-29] VITALS (7 sets, daily range): BP systolic 106–123; BP diastolic 63–80
[2020-08-29] MEDS: JEVITY 1.2 CAL 1,000 ML BOTTLE GT PRN (03:11)
[2020-08-29] MEDS: ZOSYN IVPB 3.375 G in IV D5W 50ml IV SCH (04:33)
[2020-08-29] MEDS: IPRATROPIUM/ALBUTEROL INHALER IH SCH ×4 (05:25→23:57)
--- NOTE | 2020-08-29 06:05 | NUR ---
TELE/RN CLOSING NOTES: PT. IS A/OX1. RESTING AT THIS TIME. VERBALLY RESPONSIVE. CURRENTLY ON NRB 15L, SATURATING WELL. ON TELE MONITOR WITH READING OF SR 89 AT THIS TIME. CARRERA CATH NOTED DRAINING MISSAEL COLORED URINE. NOTED WITH ACUTE MEDICAL SOFT WRIST RESTRAINTS D/T PATIENT PULLING OUT HIS NRB. SKIN CHECKED AND CIRCULATION CHECKS Q1HOUR. G-TUBE FEEDING JEVITY 1.2 RUNNING AT 70MLS/HR. NO RESIDUALS NOTED. FLUSHED 200CC PER SHIFT. IV ACCESS LOCATED ON THE ADITYA MIDLINE #18G INTACT AND PATENT, SL. SAFETY MEASURES IN PLACE AND BED IN LOW, LOCKED POSITION WITH SR UPX2. CALL LIGHT WITHIN REACH. ALL DUE MEDS GIVEN ORDERED. ALL NURSING NEEDS MET AND RENDERED. KEPT PT CLEAN AND DRY AT ALL TIMES. REPOSITIONED Q2HRS. WOUND TREATMENT DONE. WILL CONTINUE PLAN OF CARE. WILL ENDORSE TO DAY SHIFT RN.
[2020-08-29 06:52] LABS: BASOPHILS # (AUTO) 0.1 /CMM (0.0-0.2); BASOPHILS % (AUTO) 0.4 % (0.0-2.0); EOSINOPHILS % (AUTO) 1.4 % (0.0-6.0); HEMATOCRIT 39 % (39-51); HEMOGLOBIN 12.8 g/dL (13.5-17.5); LYMPHOCYTES # (AUTO) 1.9 /CMM (0.8-4.8); LYMPHOCYTES % (AUTO) 14.6 % (20.0-44.0); MEAN CORPUSCULAR HGB CONC 33 g/dl (31.0-36.0); MEAN CORPUSCULAR VOLUME 96 fL (80-96); MONOCYTES # (AUTO) 1.8 /CMM (0.1-1.30); MONOCYTES % (AUTO) 13.8 % (2.0-12.0); NEUTROPHILS % (AUTO) 69.8 % (43.0-81.0); PLATELET COUNT (AUTO) 264 /CMM (150-450); RED BLOOD CELL COUNT(AUTO) 4.13 MIL/uL (4.5-6.0); WHITE BLOOD COUNT (AUTO) 12.9 K/uL (4.3-11.0)
[2020-08-29 07:22] LABS: CALCIUM, SERUM 8.9 mg/dL (8.5-10.1); CREATININE 0.6 mg/dL (0.6-1.3); MAGNESIUM 2.2 mg/dL (1.8-2.4); PHOSPHORUS 3.6 mg/dL (2.5-4.9); POTASSIUM 5.1 mmol/L (3.5-5.1)
--- NOTE | 2020-08-29 08:00 | NUR ---
RN OPENING NOTE Patient is resting in bed, A/O x1, showing no signs of acute distress or SOB, saturating 94% on 15.0L NRB. Patient denies any pain or discomfort at this time. IV line is clean and intact flushing well. Bed is in lowest position, side rails x2 in upright position, call light is within reach, fall safety and aspiration precautions enforced. Will continue with plan of care.
[2020-08-29] MEDS: DEXAMETHASONE SOD PHOSPHATE 10 MG/ML VIAL IV SCH (08:55)
[2020-08-29] MEDS: Z GUARD REMEDY 2 OZ OINT TP SCH (08:56)
[2020-08-29] MEDS: HYDROGEL DRESSING 90 GM TUBE TP SCH (08:56)
[2020-08-29] MEDS: PIPERACILLIN /TAZOBACTAM 3.375 G in IV D5W 100 ML IV SCH ×2 (09:00→17:30)
[2020-08-29] MEDS: ENOXAPARIN SODIUM 40 MG/0.4 ML DISP.SYRIN SQ SCH ×2 (11:38→23:56)
--- NOTE | 2020-08-29 19:05 | NUR ---
SENIOR APPLICATION SOFTWARE ENGINEER OPENING NOTES RECEIVED PATIENT IN BED AWAKE ALERT AND ORIENTED X1, ABLE TO MAKE SIMPLE NEEDS KNOWN RESPIRATIONS EVEN AND UNLABORED WITH EQUAL RISE AND FALL OF CHEST, ON SOFT BILATERAL WRIST RESTRAINTS, SKIN CHECKS DONE, WNL, PULSES PALPABLE, CIRCULATION PRESENT,ON DYNAMITE PACKING MACHINE FEEDER SR 78, ON 15 L BI NON BREATHER MASK TOLERATING WELL, CONTINOUS PULSE OX AT BEDSIDE 02 SAT 96%.CARRERA CATHETER INTACT AND DRAINING URINE YELLOW, GTUBE FEEDING INTACT, TOLERATING WELL, NO RESIDUALS PRESENT, RIGHT UPPER MIDLINE #18 G INTACT AND PATENT, NO REDNESS, NO INFILTRATION , RIGHT FA IV SITE REMOVED NOTED LEAKING,ORIENTED TO STAFF AND CALL LIGHT AND KEPT WITHIN REACH. SAFETY PRECAUTIONS RENDERED, ALL NEEDS ATTENDED WILL CONTINUE TO MONITOR.
--- NOTE | 2020-08-29 19:40 | NUR ---
RN CLOSING NOTE Patient is resting in bed, A/O x1, showing no signs of acute distress or SOB, saturating 94-97% on 15.0L NRB. IV line is clean and intact flushing well. GTF running Jevity 1.2 @ 70mls/hr. All patient needs met, all due medications given, patient kept clean and dry throughout shift. Bed is in lowest position, side rails x2 in upright position, call light is within reach, fall safety and aspiration precautions enforced. Will endorse to assistant shift supervisor for MICHELLE.
[2020-08-30] VITALS (8 sets, daily range): BP systolic 97–116; BP diastolic 56–66
[2020-08-30] MEDS: PIPERACILLIN /TAZOBACTAM 3.375 G in IV D5W 100 ML IV SCH ×3 (02:29→17:02)
[2020-08-30] MEDS: JEVITY 1.2 CAL 1,000 ML BOTTLE GT PRN ×2 (02:29→16:13)
[2020-08-30] MEDS: IPRATROPIUM/ALBUTEROL INHALER IH SCH ×4 (05:34→23:51)
[2020-08-30 06:31] LABS: BASOPHILS # (AUTO) 0.1 /CMM (0.0-0.2); BASOPHILS % (AUTO) 0.7 % (0.0-2.0); EOSINOPHILS % (AUTO) 2.3 % (0.0-6.0); HEMATOCRIT 40 % (39-51); HEMOGLOBIN 12.8 g/dL (13.5-17.5); LYMPHOCYTES # (AUTO) 1.6 /CMM (0.8-4.8); LYMPHOCYTES % (AUTO) 11.9 % (20.0-44.0); MEAN CORPUSCULAR HGB CONC 32 g/dl (31.0-36.0); MEAN CORPUSCULAR VOLUME 96 fL (80-96); MONOCYTES # (AUTO) 1.5 /CMM (0.1-1.30); MONOCYTES % (AUTO) 11.1 % (2.0-12.0); NEUTROPHILS # (AUTO) 9.8 /CMM (1.8-8.9); PLATELET COUNT (AUTO) 308 /CMM (150-450); RED BLOOD CELL COUNT(AUTO) 4.14 MIL/uL (4.5-6.0); WHITE BLOOD COUNT (AUTO) 13.2 K/uL (4.3-11.0)
[2020-08-30 07:03] LABS: CREATININE 0.5 mg/dL (0.6-1.3); MAGNESIUM 2.3 mg/dL (1.8-2.4); PHOSPHORUS 4.1 mg/dL (2.5-4.9); POTASSIUM 4.6 mmol/L (3.5-5.1)
--- NOTE | 2020-08-30 07:36 | NUR ---
BALING PRESS OPERATOR OPENING NOTES PATIENT IN BED AWAKE ALERT AND ORIENTED X1, ABLE TO MAKE SIMPLE NEEDS KNOWN RESPIRATIONS EVEN AND UNLABORED WITH EQUAL RISE AND FALL OF CHEST, ON SOFT BILATERAL WRIST RESTRAINTS, SKIN CHECKS DONE, WNL, PULSES PALPABLE, CIRCULATION PRESENT,ON POWDER HAND SR 80, ON 15L NON BREATHER MASK TOLERATING WELL, CONTINOUS PULSE OX AT BEDSIDE 02 SAT 96%.CARRERA CATHETER INTACT AND DRAINING URINE YELLOW, 1400 OUTPUT GTUBE FEEDING INTACT, TOLERATING WELL, NO RESIDUALS PRESENT, RIGHT UPPER MIDLINE #18 G INTACT AND PATENT, NO REDNESS, NO INFILTRATION , RIGHT FA IV SITE REMOVED NOTED LEAKING,ORIENTED TO STAFF AND CALL LIGHT AND KEPT WITHIN REACH. SAFETY PRECAUTIONS RENDERED, ALL NEEDS ATTENDED WILL CONTINUE TO MONITOR AND ENDORSE TO NEXT SHIFT. Addendum: 08/30/20 at 0738 by KISHAN TEJEDA RN BALING PRESS OPERATOR CLOSING NOTES
--- NOTE | 2020-08-30 07:37 | NUR ---
NUCLEAR MEDICINE TECH NOTES PATIENT RECEIVED IN BED SLEEPING COMFORTABLY. ON NRB MASK, 15 LITERS, WITH NON-LABORED BREATHING. ON HEALTH COORDINATOR, SR 90 WITH BBB'S. IV ACCESS INTACT AND PATENT, SKIN WARM AND DRY TO TOUCH. PATIENT PRESENTING WITH NO PAIN OR DISCOMFORT AT THIS TIME. G-TUBE FEEDING INTACT AND PATENT, INFUSING 70mL/hr WITH NO RESIDUAL NOTED AT THIS TIME. BILATERAL SOFT WRIST RESTRAINTS IN PLACE WITH ADEQUATE SKIN CIRCULATION NOTED, Q15 MIN VISUAL CHECKS DONE. SAFETY PRECAUTIONS IMPLEMENTED WITH BED LOCKED, BILATERAL SIDE RAILS UP, BED IN THE LOWEST POSITION, BED ALARM ON, AND CALL LIGHT WITHIN EASY REACH. WILL CONTINUE TO MONITOR.
[2020-08-30] MEDS: DEXAMETHASONE SOD PHOSPHATE 10 MG/ML VIAL IV SCH (08:22)
[2020-08-30] MEDS: HYDROGEL DRESSING 90 GM TUBE TP SCH (08:25)
[2020-08-30] MEDS: Z GUARD REMEDY 2 OZ OINT TP SCH (08:26)
--- NOTE | 2020-08-30 08:39 | NUR ---
WOUND CARE FOLLOW UP: RE-EVALUATION OF PHOTOS AND CHART DONE TODAY. SPOKE WITH RN. PER PHOTOS SACRAL STAGE 2 ULCER IS NOW RESOLVED BUT RASH REMAINS TO BUTTOCKS AND GROIN FOLDS. RECOMMENDATIONS MADE FOR SKIN PROTECTION. DISCUSSED WITH NURSING STAFF. MD IN AGREEMENT WITH PLAN OF CARE.
[2020-08-30] MEDS: CLOTRIMAZOLE 1% 15 GM TUBE TP SCH ×2 (09:18→17:04)
[2020-08-30 11:51] LABS: BAND % (MANUAL) 3 % (0.0-5.0); EOSINOPHILS % (MANUAL) 1 % (0-4); LYMPHOCYTES % (MANUAL) 10 % (16-48); MONOCYTES % (MANUAL) 15 % (0-11.0); MYELOCYTES % 7 % (0-0); NEUTROPHILS % (MANUAL) 64 (42-76)
[2020-08-30] MEDS: ENOXAPARIN SODIUM 40 MG/0.4 ML DISP.SYRIN SQ SCH ×2 (11:51→23:49)
--- NOTE | 2020-08-30 18:51 | NUR ---
SWEAT BOX ATTENDANT NOTES PATIENT IN BED SLEEPING COMFORTABLY. ON NRB MASK, 15 LITERS, WITH NON-LABORED BREATHING AND NO RESPIRATORY DISTRESS NOTED. ON CLOTH WASHER BACK TENDER, SR 99 WITH BBB'S. IV ACCESS INTACT AND PATENT, SKIN WARM KEPT CLEAN AND DRY TO TOUCH. PATIENT PRESENTING WITH NO PAIN OR DISCOMFORT AT THIS TIME. G-TUBE FEEDING INTACT AND PATENT, INFUSING 70mL/hr WITH NO RESIDUAL NOTED AT THIS TIME. MET ALL OF PATIENT'S NEEDS. BILATERAL SOFT WRIST RESTRAINTS IN PLACE WITH ADEQUATE SKIN CIRCULATION NOTED, Q15 MIN VISUAL CHECKS DONE. SAFETY PRECAUTIONS IMPLEMENTED WITH BED LOCKED, BILATERAL SIDE RAILS UP, BED IN THE LOWEST POSITION, BED ALARM ON, AND CALL LIGHT WITHIN EASY REACH. WILL ENDORSE PLAN OF CARE TO UPCOMING RN.
[2020-08-31] VITALS: BP 107/74
[2020-08-31] MEDS: PIPERACILLIN /TAZOBACTAM 3.375 G in IV D5W 100 ML IV SCH ×3 (01:45→17:06)
[2020-08-31 04:00] VITALS: BP 113/71
[2020-08-31] MEDS: IPRATROPIUM/ALBUTEROL INHALER IH SCH ×3 (06:48→17:08)
[2020-08-31 07:25] LABS: BASOPHILS % (AUTO) 0.2 % (0.0-2.0); EOSINOPHILS % (AUTO) 1.8 % (0.0-6.0); HEMATOCRIT 41 % (39-51); HEMOGLOBIN 13.4 g/dL (13.5-17.5); LYMPHOCYTES # (AUTO) 1.9 /CMM (0.8-4.8); LYMPHOCYTES % (AUTO) 13.2 % (20.0-44.0); MEAN CORPUSCULAR HGB CONC 33 g/dl (31.0-36.0); MEAN CORPUSCULAR VOLUME 95 fL (80-96); MONOCYTES # (AUTO) 1.7 /CMM (0.1-1.30); MONOCYTES % (AUTO) 11.8 % (2.0-12.0); NEUTROPHILS # (AUTO) 10.7 /CMM (1.8-8.9); PLATELET COUNT (AUTO) 332 /CMM (150-450); RED BLOOD CELL COUNT(AUTO) 4.31 MIL/uL (4.5-6.0); WHITE BLOOD COUNT (AUTO) 14.7 K/uL (4.3-11.0)
--- NOTE | 2020-08-31 07:35 | NUR ---
GLAZING DEPARTMENT SUPERVISOR NOTES PATIENT RECEIVED IN BED SLEEPING COMFORTABLY. ON NRB MASK, 15 LITERS, WITH NON-LABORED BREATHING. ON HEALTH WORKERS, SR 90 WITH BBB'S. IV ACCESS INTACT AND PATENT, SKIN WARM AND DRY TO TOUCH. PATIENT PRESENTING WITH NO PAIN OR DISCOMFORT AT THIS TIME. G-TUBE FEEDING INTACT AND PATENT, INFUSING 70mL/hr WITH NO RESIDUAL NOTED AT THIS TIME. BILATERAL SOFT WRIST RESTRAINTS IN PLACE WITH ADEQUATE SKIN CIRCULATION NOTED, Q15 MIN VISUAL CHECKS DONE. SAFETY PRECAUTIONS IMPLEMENTED WITH BED LOCKED, BILATERAL SIDE RAILS UP, BED IN THE LOWEST POSITION, BED ALARM ON, AND CALL LIGHT WITHIN EASY REACH. WILL CONTINUE TO MONITOR.
[2020-08-31 07:39] LABS: CREATININE 0.5 mg/dL (0.6-1.3); MAGNESIUM 2.5 mg/dL (1.8-2.4); POTASSIUM 4.8 mmol/L (3.5-5.1)
[2020-08-31 08:00] VITALS: BP 137/75
--- NOTE | 2020-08-31 08:38 | NUR ---
WOUND CARE CONSULT: REVIEWED CHART, NURSING DOCUMENTATION AND PHOTO, SPOKE WITH RN. PER PHOTO AND RN THERE IS AREA OF BLANCHABLE REDNESS TO LEFT WRIST AREA. NURSING STAFF TO OBSERVE AREA. DISCUSSED SKIN PROTECTION WITH NURSING STAFF. MD IN AGREEMENT WITH PLAN OF CARE.
[2020-08-31] MEDS: JEVITY 1.2 CAL 1,000 ML BOTTLE GT PRN ×2 (09:15→23:30)
--- NOTE | 2020-08-31 09:15 | NUR ---
SHRINK PIT SUPERVISOR NOTES TITRATED PATIENT FROM 15 LITERS NRB TO SIMPLE FACE MASK 10 LITERS, PATIENT DESATURATED TO 82-86% PLACED BACK TO NRB MASK 15L , INFORMED DR DURBIN AT THIS TIME, NO NEW ORDERS.
[2020-08-31] MEDS: DEXAMETHASONE SOD PHOSPHATE 10 MG/ML VIAL IV SCH (09:16)
[2020-08-31] MEDS: CLOTRIMAZOLE 1% 15 GM TUBE TP SCH ×2 (09:22→17:07)
[2020-08-31] MEDS: Z GUARD REMEDY 2 OZ OINT TP SCH (09:22)
[2020-08-31] MEDS: ENOXAPARIN SODIUM 40 MG/0.4 ML DISP.SYRIN SQ SCH ×2 (12:22→23:24)
[2020-08-31 14:15] VITALS: BP 99/56
[2020-08-31 16:00] VITALS: BP 103/64
--- NOTE | 2020-08-31 19:30 | NUR ---
APPAREL PATTERN MAKER OPENING NOTE RECEIVED PATIENT IN BED. A/OX1-1, ON OXYGEN 15L /MIN VIA NONREBREATHER. RESPIRATIONS ARE EVEN AND UNLABORED. NO S/S SOB NOTED, NO S/S PAIN NOTED. EXTERNAL TELE MONITOR READS SINUS RHYTHM WITH BBB. IN NO APPARENT DISTRESS. IV ACCESS IN ADITYA MIDLINE PATENT AND SALINE LOCKED. CARRERA CATHETER IS PRESENT DRAINING TO GRAVIY. BILATERAL SOFT WRIST RESTRAINTS PRESENT, NO REDNESS NOTED. GOOD CAP REFILL. GTUBE FEEDING PRESENT, NO RESIDUAL, FEEDING RUNNING JEVITY 1.2@70ML/HR. BED IS LOW AND LOCKED , HOB ELEVATED IN SEMI FOWLERS, SIDE RIALS UP X3, CALL LIGHT WITHIN REACH, WILL CONTINUE TO MONITOR THROUGHOUT SHIFT.
--- NOTE | 2020-08-31 19:33 | NUR ---
DOVETAIL MACHINE OPERATOR NOTES PATIENT IN BED SLEEPING COMFORTABLY. ON NRB MASK, 15 LITERS, WITH NON-LABORED BREATHING AND NO RESPIRATORY DISTRESS NOTED. ON MANUAL MACHINIST. IV ACCESS INTACT AND PATENT, SKIN WARM KEPT CLEAN AND DRY TO TOUCH. PATIENT PRESENTING WITH NO PAIN OR DISCOMFORT AT THIS TIME. G-TUBE FEEDING INTACT AND PATENT, INFUSING 70mL/hr WITH NO RESIDUAL NOTED AT THIS TIME. MET ALL OF PATIENT'S NEEDS. BILATERAL SOFT WRIST RESTRAINTS IN PLACE WITH ADEQUATE SKIN CIRCULATION NOTED, Q15 MIN VISUAL CHECKS DONE. SAFETY PRECAUTIONS IMPLEMENTED WITH BED LOCKED, BILATERAL SIDE RAILS UP, BED IN THE LOWEST POSITION, BED ALARM ON, AND CALL LIGHT WITHIN EASY REACH. WILL ENDORSE PLAN OF CARE TO UPCOMING RN.
[2020-08-31 20:00] VITALS: BP 105/62
[2020-09-01] VITALS (7 sets, daily range): BP systolic 100–132; BP diastolic 59–75
[2020-09-01] MEDS: IPRATROPIUM/ALBUTEROL INHALER IH SCH ×5 (05:09→18:07)
--- NOTE | 2020-09-01 07:30 | NUR ---
RN OPENING NOTE RECEIVED PATIENT RESTING IN BED. AWAKE, ALERT AND ORIENTED X 1. ABLE TO MAKE NEEDS KNOWN. NO COMPLAINTS OF PAIN THIS AM. IV ACCESS TO ADITYA IS INTACT AND PATENT. CONTINUES ON O2 NON-REBREATHER MASK 15L WITH NO S/S OF RESPIRATORY DISTRESS. WILL CONTINUE TO MONITOR.
--- NOTE | 2020-09-01 07:30 | NUR ---
WEIGHT LOSS COUNSELOR CLOSING NOTE PATIENT RESTING IN BED. A/OX1, REMAINS ON OXYGEN 15L /MIN VIA NONREBREATHER. NO RESP DISTRESS. NO PAIN. TELE MONITOR READS SINUS RHYTHM. NO DISTRESS. IV ACCESS MAINTAINED IN ADITYA MIDLINE. CARRERA CATHETER IS MAINTAINED. BILATERAL SOFT WRIST RESTRAINTS MAINTAINED, NO INJURIES NOTED. GTUBE FEEDING RUNNING JEVITY 1.2@70ML/HR. BED REMAINS LOW AND LOCKED , HOB ELEVATED IN SEMI FOWLERS, SIDE RIALS UP X3, CALL LIGHT WITHIN REACH, WILL ENDORSE TO NEXT SHIFT.
[2020-09-01 07:49] LABS: BASOPHILS % (AUTO) 0.2 % (0.0-2.0); EOSINOPHILS % (AUTO) 1.6 % (0.0-6.0); HEMATOCRIT 39 % (39-51); HEMOGLOBIN 12.9 g/dL (13.5-17.5); LYMPHOCYTES % (AUTO) 13.7 % (20.0-44.0); MEAN CORPUSCULAR HGB CONC 33 g/dl (31.0-36.0); MEAN CORPUSCULAR VOLUME 95 fL (80-96); MONOCYTES # (AUTO) 1.7 /CMM (0.1-1.30); MONOCYTES % (AUTO) 12.1 % (2.0-12.0); NEUTROPHILS # (AUTO) 10.4 /CMM (1.8-8.9); NEUTROPHILS % (AUTO) 72.4 % (43.0-81.0); PLATELET COUNT (AUTO) 362 /CMM (150-450); RED BLOOD CELL COUNT(AUTO) 4.15 MIL/uL (4.5-6.0); WHITE BLOOD COUNT (AUTO) 14.4 K/uL (4.3-11.0)
[2020-09-01 08:04] LABS: CALCIUM, SERUM 8.7 mg/dL (8.5-10.1); CREATININE 0.5 mg/dL (0.6-1.3); MAGNESIUM 2.2 mg/dL (1.8-2.4); PHOSPHORUS 3.5 mg/dL (2.5-4.9); POTASSIUM 4.5 mmol/L (3.5-5.1)
[2020-09-01] MEDS: Z GUARD REMEDY 2 OZ OINT TP PRN (08:06)
[2020-09-01] MEDS: DEXAMETHASONE SOD PHOSPHATE 10 MG/ML VIAL IV SCH (08:06)
[2020-09-01] MEDS: Z GUARD REMEDY 2 OZ OINT TP SCH (08:07)
[2020-09-01] MEDS: CLOTRIMAZOLE 1% 15 GM TUBE TP SCH ×2 (08:07→16:48)
[2020-09-01] MEDS: ENOXAPARIN SODIUM 40 MG/0.4 ML DISP.SYRIN SQ SCH (11:23)
[2020-09-01 12:05] LABS: EOSINOPHILS % (MANUAL) 3 % (0-4); LYMPHOCYTES % (MANUAL) 12 % (16-48); MONOCYTES % (MANUAL) 14 % (0-11.0); MYELOCYTES % 2 % (0-0); NEUTROPHILS % (MANUAL) 69 (42-76)
[2020-09-01] MEDS: JEVITY 1.2 CAL 1,000 ML BOTTLE GT PRN (12:31)
--- NOTE | 2020-09-01 13:58 | NUR ---
SS consult requested for wounds from facility. The pt. is a 70 year old male seeking Tx. that comes from [facility] [[id number] [address]; [phone]]. Per EMR, the facility called 911 after the pt. began experiencing SOB. Per Wound consult note, the pt.'s wounds include: Sacral Stage 2 Ulcer, rash in buttocks & groin folds(see nursing notes for details). SW unable to assess pt. 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 is COVID positive, SW unable to assess him in person. CAIO called the [facility]'s office [phone] and left voicemail with SW call back number. SW will be available as needed. Addendum: 09/01/20 at 1422 by NICK KEARNEY CAIO placed the following resources in the pt.'s discharge packet: ABUSE PREVENTION: ELDER ABUSE HOTLINE (12/03) ADULT PROTECTIVE SERVICES HOTLINE LONG-TERM CARE [facility] Region AREA ON AGING (HOTLINE) ADULT DAY HEALTH CARE CARE CENTERS: Private pay or Medi-chino funded adult day care [facility] , [facility] , [facility] , [facility] Day [facility] Care , [facility] Day [facility] Care , [facility] , [place] [facility] , [place] [facility] , [place] ALZHEIMERS DISEASE/DEMENTIA: Alzheimers Association Helpline [facility] Chapter www.alz.org/[facility] Department of Aging www.lacity.org Family Caregiver [place] www.caregiver.org [place] Caregiver Resources Center/Family Support www.[facility].org CANCER RESOURCES: [place] Cancer Society www.cancer.org Cancer Support Community www.CancerSupportVvsb.org: CancerCare www.cancercare.org [facility] Cancer Support [place] www.[facility].org [facility] HEALTH ASSOCIATIONS: AARP www.aarp.org ALS Association (ask for Korin) www.als.org [place] Diabetes Association www.diabetes.org [place] Heart Association www.heart.org [place] Lung Association www.lungusa.org [place] Parkinson Disease Association www.apdaparkinson.org Guatem[place] Keeler , www.redcross.org Arthritis Foundation www.arthritis.org Crohns & Colitis Foundation of [place] www.ccfa.org/chapters/samir National Multiple Sclerosis Society www.nationalmssociety.org Myasthenia Gravis Foundation www.myasthenia-ca.org National Stroke Association www.stroke.org CONSERVATORSHIP & GUARDIANSHIP: AARLina Karla Hansen Legal Services Center for Health Care Rights [facility]are Information and Referral Stenocaptioner [facility] Emergency Department [facility] Bar Referral Service [facility] Legal Services Office of the Public Guardian [place] GRIEF AND BEREAVEMENT RESOURCES: The [facility] , [facility] THE [facility] , [facility] , [place] LIFE ALERT RESPONSE SYSTEM: Rover.com Lifeline Services [phone] www. Athlete Builder Life Alert [phone] www.lifealert.Achieve3000 Life Station [phone] www.WaveRx Safe Return [phone] www.alz.or/safereturn Cell Phones for Seniors www.Minilogs.Achieve3000 TRANSPORTATION: Local [facility] may have applications for transportation programs and additional resources. ACCESS Services [phone] Transportation for seniors and disabled persons 7 days a week requiring 254 hr. advance reservation. Must apply and register for program ivette eligible. [employer]iter [phone] or [phone] Transportation for seniors and persons with ADA card/metro disabled card in the [facility]. M-F only. Must register for services. ONE GENERATION [phone] Serves 65 years + in conjunction with city CiteeCare program. Must be registered with both programs. A to B Transport [phone] Provides wheelchair/LegCyterney van service. Adult Medical Transport [phone] Accepts Medi-chino with prior authorization. Care Van [phone] Provides wheelchair Transport. [facility] Wide Transportation [phone] Provides gurney service [facility] [phone] Gurney Transport. [facility] Transportation [phone] wheelchair & gurney transport [facility] Transportation [phone] wheelchair & gurney transport [place] Non-Emergency Transport [phone] wheelchair & gurney transport [facility] Living [place] [phone] Short Term Transportation primarily for adults with disabilities on social security income. Nominal fee may apply and a reservation is required. [facility] Cab [phone] or [phone] [facility] [phone] [place] [address] Services -[phone] For additional programs & services VETERANS RESOURCES: Submissions for Aid and Attendance should be done directly to Federal VA office locatd at : [address] [address] X110 National Caregiver Support Line [phone] [facility] Veterans Services Field Office [phone] [place] Department of [place] Affairs [phone] Pension Information [phone]
--- NOTE | 2020-09-01 18:54 | NUR ---
RN CLOSING NOTE PATIENT CURRENTLY RESTING IN BED. ALERT AND ORIENTED X 1. NO COMPLAINTS OF PAIN THIS SHIFT. TITRATED O2 TO SIMPLE MASK ON 10L WITH O2 SATS 95%. NO S/S OF RESPIRATORY DISTRESS NOTED. GT PATENT WITH JEVITY 1.2 RUNNING AT 70ML/HR. CALL LIGHT WITHIN REACH. ASPIRATION, FALL AND SAFETY PRECAUTIONS MAINTAINED.
--- NOTE | 2020-09-01 20:20 | NUR ---
AIRPORT ENGINEER OPENING NOTES PATIENT IN BED; A/O X1. EXTERNAL CARDIAC MONITORING READS SR WITH BBB HR AT 76. ON SIMPLE MASK 10LPM; TOLERATING WELL WITH NO SOB. GT PEG PATENT AND INTACT; JEVITY 1.7 @ 70 ML/HR; TOLERATING FEEDINGS WELL. NO S/S OF PAIN OR DISCOMFORT AT THIS TIME. ADITYA MIDLINE MIDLINE; PATENT AND INTACT. CARRERA CATHETER PATENT AND INTACT; DRAINING CLEAR MISSAEL COLORED URINE BY GRAVITY. SAFETY MEASURES IN PLACE: BED IN LOWEST LOCK POSITION, SIDE RAILS UP X2, CALL LIGHT WITHIN REACH, BED ALARMS ON. WILL CONTINUE TO MONITOR.
[2020-09-02] VITALS (7 sets, daily range): BP systolic 101–130; BP diastolic 61–84
[2020-09-02] MEDS: ENOXAPARIN SODIUM 40 MG/0.4 ML DISP.SYRIN SQ SCH ×2 (00:08→12:11)
[2020-09-02] MEDS: IPRATROPIUM/ALBUTEROL INHALER IH SCH ×4 (00:23→17:02)
[2020-09-02] MEDS: JEVITY 1.2 CAL 1,000 ML BOTTLE GT PRN ×2 (03:36→20:15)
[2020-09-02 06:39] LABS: BASOPHILS # (AUTO) 0.1 /CMM (0.0-0.2); BASOPHILS % (AUTO) 0.4 % (0.0-2.0); EOSINOPHILS % (AUTO) 1.3 % (0.0-6.0); HEMATOCRIT 42 % (39-51); HEMOGLOBIN 13.6 g/dL (13.5-17.5); LYMPHOCYTES # (AUTO) 2.1 /CMM (0.8-4.8); LYMPHOCYTES % (AUTO) 13.9 % (20.0-44.0); MEAN CORPUSCULAR HGB CONC 33 g/dl (31.0-36.0); MEAN CORPUSCULAR VOLUME 95 fL (80-96); MONOCYTES # (AUTO) 1.7 /CMM (0.1-1.30); MONOCYTES % (AUTO) 11.3 % (2.0-12.0); NEUTROPHILS # (AUTO) 10.9 /CMM (1.8-8.9); NEUTROPHILS % (AUTO) 73.1 % (43.0-81.0); PLATELET COUNT (AUTO) 401 /CMM (150-450); RED BLOOD CELL COUNT(AUTO) 4.41 MIL/uL (4.5-6.0); WHITE BLOOD COUNT (AUTO) 14.9 K/uL (4.3-11.0)
[2020-09-02 06:48] LABS: CALCIUM, SERUM 9.1 mg/dL (8.5-10.1); CREATININE 0.5 mg/dL (0.6-1.3); MAGNESIUM 2.1 mg/dL (1.8-2.4); PHOSPHORUS 3.4 mg/dL (2.5-4.9); POTASSIUM 4.6 mmol/L (3.5-5.1)
--- NOTE | 2020-09-02 07:39 | NUR ---
AUTOMATIC DRILLING MACHINE OPERATOR CLOSING NOTES PATIENT IN BED; A/O X1. EXTERNAL CARDIAC MONITORING READS SR WITH BBB. ON SIMPLE MASK 10LPM; TOLERATING WELL WITH NO SOB. GT PEG PATENT AND INTACT; JEVITY 1.7 @ 70 ML/HR; TOLERATING FEEDINGS WELL. ADITYA MIDLINE MIDLINE; PATENT AND INTACT. CARRERA CATHETER PATENT AND INTACT; DRAINING CLEAR MISSAEL COLORED URINE BY GRAVITY. SAFETY MEASURES IN PLACE: BED IN LOWEST LOCK POSITION, SIDE RAILS UP X2, CALL LIGHT WITHIN REACH, BED ALARMS ON. ENDORSED MICHELLE TO ONCOMING RN.
--- NOTE | 2020-09-02 07:52 | NUR ---
GROCERY ASSOCIATE OPENING NOTES RECEIVED PATIENT IN BED, AWAKE, A/O X1. ON SIMPLE MASK 6LPM AT THIS TIME; O2 ADJUSTED BY ATTENDING PHYSICIAN; TOLERATING WELL WITH NO SOB. PATIENT ON EXTERNAL CARDIAC MONITORING READS SR WITH BBB. G-TUBE PRESENT, PATENT AND INTACT; JEVITY 1.7 @ 70 ML/HR; TOLERATING FEEDINGS WELL. ADITYA MIDLINE MIDLINE PRESENT, PATENT AND INTACT. CARRERA CATHETER IN PLACE; DRAINING CLEAR MISSAEL COLORED URINE BY GRAVITY. SAFETY PRECAUTIONS IN PLACE; BED IN LOW POSITION AND LOCKED, RAILS UP X2, CALL LIGHT WITHIN REACH. WILL CONTINUE TO MONITOR PATIENT.
[2020-09-02] MEDS: CLOTRIMAZOLE 1% 15 GM TUBE TP SCH ×2 (08:14→16:10)
[2020-09-02] MEDS: Z GUARD REMEDY 2 OZ OINT TP SCH (08:14)
[2020-09-02] MEDS: DEXAMETHASONE SOD PHOSPHATE 10 MG/ML VIAL IV SCH (08:18)
[2020-09-02 12:06] LABS: BAND % (MANUAL) 2 % (0.0-5.0); LYMPHOCYTES % (MANUAL) 6 % (16-48); MONOCYTES % (MANUAL) 15 % (0-11.0); NEUTROPHILS % (MANUAL) 77 (42-76)
--- NOTE | 2020-09-02 18:45 | NUR ---
COMPLIANCE AUDITOR CLOSING NOTES PATIENT REMAINS IN BED, AWAKE, A/O X1. ON SIMPLE MASK 8 LPM AT THIS TIME; TOLERATING WELL WITH NO SOB. PATIENT ON EXTERNAL CARDIAC MONITORING READS SR 75 WITH PVCs AND BBB. G-TUBE PRESENT, PATENT AND INTACT; JEVITY 1.7 @ 70 ML/HR; TOLERATING FEEDINGS WELL. ADITYA MIDLINE MIDLINE PRESENT, PATENT AND INTACT. CARRERA CATHETER IN PLACE; DRAINING CLEAR MISSAEL COLORED URINE BY GRAVITY WITH 600 MLS OUTPUT FOR THE DAY. ALL NEEDS ATTENDED THROUGHOUT THE DAY. SAFETY PRECAUTIONS IN PLACE; BED IN LOW POSITION AND LOCKED, RAILS UP X2, CALL LIGHT WITHIN REACH. WILL ENDORSE TO FURNACE INSTALLER NURSE.
--- NOTE | 2020-09-02 19:31 | NUR ---
PEDICAB DRIVER OPENING NOTES PATIENT IN BED; A/O X1. EXTERNAL CARDIAC MONITORING READS SR WITH BBB; HR AT 70'S. ON O2 8LPM VIA SIMPLE MASK; TOLERATING WELL WITH NO SOB. GT PEG PATENT AND INTACT; FLUSHES WELL. NO S/S OF PAIN OR DISCOMFORT AT THIS TIME. ADITYA MIDLINE; PATENT AND INTACT. CARRERA CATHETER PATENT AND INTACT; DRAINING CLEAR MISSAEL COLORED URINE BY GRAVITY. SAFETY MEASURES IN PLACE: BED IN LOWEST LOCK POSITION, SIDE RAILS UP X2, CALL LIGHT WITHIN REACH, BED ALARMS ON. WILL CONTINUE TO MONITOR.
[2020-09-02] MEDS ORDERED: ALBUTEROL SULFATE INH 18 GM HFA.AER.AD IH PRN (22:00)
[2020-09-03] VITALS (7 sets, daily range): BP systolic 94–128; BP diastolic 58–80
[2020-09-03] MEDS: ENOXAPARIN SODIUM 40 MG/0.4 ML DISP.SYRIN SQ SCH ×3 (00:57→23:12)
[2020-09-03] MEDS: IPRATROPIUM/ALBUTEROL INHALER IH SCH ×5 (06:28→23:15)
[2020-09-03 07:15] LABS: BASOPHILS % (AUTO) 0.3 % (0.0-2.0); EOSINOPHILS % (AUTO) 0.2 % (0.0-6.0); HEMATOCRIT 38 % (39-51); HEMOGLOBIN 12.5 g/dL (13.5-17.5); LYMPHOCYTES # (AUTO) 1.7 /CMM (0.8-4.8); LYMPHOCYTES % (AUTO) 11.3 % (20.0-44.0); MEAN CORPUSCULAR HGB CONC 33 g/dl (31.0-36.0); MEAN CORPUSCULAR VOLUME 95 fL (80-96); MONOCYTES # (AUTO) 1.4 /CMM (0.1-1.30); NEUTROPHILS % (AUTO) 79.2 % (43.0-81.0); PLATELET COUNT (AUTO) 422 /CMM (150-450); RED BLOOD CELL COUNT(AUTO) 4.03 MIL/uL (4.5-6.0); WHITE BLOOD COUNT (AUTO) 15.1 K/uL (4.3-11.0)
--- NOTE | 2020-09-03 07:17 | NUR ---
PATIENT REGISTRATION SPECIALIST CLOSING NOTES PATIENT IN BED; A/O X1. EXTERNAL CARDIAC MONITORING READS SR AND HR AT 83. ON O2 SIMPLE MASK 8LPM; SATTING AT 95 - 100%; TOLERATING WELL WITH NO SOB. GT PEG PATENT AND INTACT; JEVITY 1.2 @ 70 ML/HR; TOLERATING FEEDINGS WELL. ADITYA MIDLINE; PATENT AND INTACT. CARRERA CATHETER PATENT AND INTACT; DRAINING CLEAR MISSAEL COLORED URINE BY GRAVITY. SAFETY MEASURES IN PLACE: BED IN LOWEST LOCK POSITION, SIDE RAILS UP X2, CALL LIGHT WITHIN REACH, BED ALARMS ON. ENDORSED MICHELLE TO ONCOMING RN.
[2020-09-03 07:24] LABS: CREATININE 0.5 mg/dL (0.6-1.3); MAGNESIUM 2.1 mg/dL (1.8-2.4); PHOSPHORUS 3.7 mg/dL (2.5-4.9); POTASSIUM 4.5 mmol/L (3.5-5.1)
--- NOTE | 2020-09-03 10:45 | NUR ---
TELE/RN OPENING NOTE Received report from Nilo ORTEGA. Patient awake in bed, A&O x 1, confused. Breathing even and non-labored on 4 L via face mask. No respiratory or cardiac distress noted. On tele monitor, reading SR 80. ADITYA midline #18, patent and intact, and flushing well. Gonzalez in place, draining yellow urine well. Bilateral soft wrist restraints in place, circulation, skin, and sensation of both upper extremities are intact. Bed locked to its lowest position, side rails x 2 up, bed alarm on. Will continue current medical management.
[2020-09-03 11:03] LABS: LYMPHOCYTES % (MANUAL) 8 % (16-48); MONOCYTES % (MANUAL) 11 % (0-11.0); NEUTROPHILS % (MANUAL) 81 (42-76)
[2020-09-03] MEDS: CLOTRIMAZOLE 1% 15 GM TUBE TP SCH ×2 (11:41→17:45)
[2020-09-03] MEDS: Z GUARD REMEDY 2 OZ OINT TP SCH (11:42)
--- NOTE | 2020-09-03 12:00 | NUR ---
TELE/RN NOTE Patient tolerating 4 L oxygen via face mask well, saturating at 91-96%. No SOB noted, breathing even and non-labored.
[2020-09-03] MEDS: JEVITY 1.2 CAL 1,000 ML BOTTLE GT PRN (12:30)
--- NOTE | 2020-09-03 20:18 | NUR ---
TRACK REPAIR PERSON OPENING NOTE Patient awake in bed, A/O x1, HOB elevated. Tele monitor reading sinus rhythm. Breathing even, unlabored on simple mask @ 4 LPM. Skin is warm, pink, dry. Rash noted on perineum. Patient kept clean and dry. G tube patent and intact. No redness around site. GT feeding running @ 70 ml/hr, no residual, patient tolerating well. Bilateral wrist restraints in place. Patient pulling IV lines and tubes. Pulses 2+ symmetrical. Mild bruising noted above wrist restraints. IV site ADITYA midline, patent and intact. No signs of redness or infiltration. Bed in low position, wheels locked, side rails up x2, call light within reach.
--- NOTE | 2020-09-03 20:24 | NUR ---
TELE/RN CLOSING NOTE Patient awake in bed, A&O x 1, confused. All needs met and attended to. Breathing even and non-labored on 4 L via face mask, saturating at 91-96%. No respiratory or cardiac distress noted. On tele monitor, reading SR 80. ADITYA midline #18, patent and intact, and flushing well. Gonzlaez in place, draining yellow urine well. Bilateral soft wrist restraints in place, circulation, skin, and sensation of both upper extremities are intact. Fall precautions maintained. Will endorse to freight rate analyst nurse.
[2020-09-04] VITALS: BP 102/62
[2020-09-04 04:00] VITALS: BP 105/67
[2020-09-04] MEDS: IPRATROPIUM/ALBUTEROL INHALER IH SCH ×3 (05:21→17:49)
--- NOTE | 2020-09-04 06:11 | NUR ---
CHISEL MORTISER OPERATOR CLOSING NOTE Patient awake in bed, A/O x1, HOB elevated. Tele monitor reading sinus rhythm. Breathing even, unlabored on simple mask @ 4 LPM. Pericare completed. Patient kept clean and dry. GT feeding running @ 70 ml/hr, no residual, patient tolerating well. Bilateral wrist restraints in place. Patient pulling IV lines and tubes. Pulses 2+ symmetrical. IV site ADITYA midline, patent and intact. All medications administered as ordered. All needs met. No signs of redness or infiltration. Bed in low position, wheels locked, side rails up x2, call light within reach. Will endorse to oncoming nurse.
--- NOTE | 2020-09-04 07:41 | NUR ---
TELE/RN OPENING NOTES RECEIVED PATIENT ON BED. PATIENT IN NO APPARENT RESPIRATORY DISTRESS NOTED. NO SIGN AND SYMPTOM OF PAIN NOTED AT THIS TIME. TELE MONITOR READING SINUS RHYTHM WITH EPISODE OF WAP 72 BPM. WILL CONTINUE TO MONITOR.
[2020-09-04] MEDS: CLOTRIMAZOLE 1% 15 GM TUBE TP SCH ×2 (09:59→17:50)
[2020-09-04] MEDS: Z GUARD REMEDY 2 OZ OINT TP SCH (12:46)
[2020-09-04] MEDS: ENOXAPARIN SODIUM 40 MG/0.4 ML DISP.SYRIN SQ SCH (12:46)
[2020-09-04] MEDS ORDERED: ENOX40DI SQ (17:27)
[2020-09-04] MEDS ORDERED: LACT-209 GT (17:28)
[2020-09-04] MEDS: JEVITY 1.2 CAL 1,000 ML BOTTLE GT PRN (18:08)
--- NOTE | 2020-09-04 19:13 | NUR ---
TELE/RN CLOSING NOTES PATIENT IS ON BED. PATIENT IS ON 4L OXYGEN VIA MASK SATURATION 95%. PATIENT IN NO APPARENT RESPIRATORY DISTRESS. NO SIGN AND SYMPTOM OF PAIN NOTED AT THIS TIME. TELE MONITOR READING SINUS RHYTHM 88 BPM. SEEN AND EXAMINED BY MD WITH ORDERS MADE AND CARRIED OUT. ALL DUE MEDICATIONS WAS GIVE. WILL ENDORSED TO PHOTORADIO OPERATOR FOR MICHELLE
[2020-09-04 20:00] VITALS: BP_SYST 124; BP_SYST 127; BP_DIAS 78
--- NOTE | 2020-09-04 21:02 | NUR ---
cost accounting clerk opening notes Received Pt from morning nurse. Pt is resting in bed comfortably. Pt is alert and orientedX1. Respiration on 4 L simple mask with 02 sat is 96%. No SOB. No S/S of distress noted. Pt will be discharge tonight. Ambulance will come at 2100. D/C paperwork is done per am nurse. ADITYA midline is clean, intact and flushes well. Tele monitor showed SR hr at 88 bpm. Cortez cath is intact and draining yellow urine. Per am nurse do not remove the cortez because JORDAN Pond from [facility] asked to keep the cortez. Safety precautions is maintained. Bed at low position, brakes locked, side railsupX2 and call light is within reach. Will continue to monitor.
--- NOTE | 2020-09-04 21:51 | NUR ---
doughnut maker notes Called AM elle regarding potato picker time. MINDI almeida said in 30 minutes.
[2020-09-04 23:15] VITALS: BP 110/73
--- NOTE | 2020-09-04 23:20 | NUR ---
material flow engineereyeglass lens generator notes [facility] EMT ( Radha Ludwig and Ankur Kebede) came and flower picker Pt. [facility] D/C paperwork is given to Radha EMT. Pt's does not have any belonging. Gonzalez cath still is intact per [facility] not to [facility] it. ADITYA midline is removed. G-tube is clean, and intact. VS is stable. BP 110/73, HR 96, respiration is 18, temp 97.9 and O2 sat is 97% on mask 4 L. No SOB. No S/S of distress noted. Afebrile.
== END 2020-09-04 23:40 | DRG 871 ==
LOC: ER 18:01 → TRANSITION 23:29 → TELE2 08-24 15:30
PROVIDERS: ADMIT Nurse Practitioner Acute Care; ATTEND Nurse Practitioner Acute Care
PROC: 05H533Z Insertion of Infusion Device into Right Subclavian Vein, Percutaneous Approach (ICD-10-PCS; principal; 2020-08-27)
PROC: B546ZZA Ultrasonography of Right Subclavian Vein, Guidance (ICD-10-PCS; 2020-08-27)
DX: A41.89 Other specified sepsis (principal); U07.1 COVID-19; G93.41 Metabolic encephalopathy; J96.01 Acute respiratory failure with hypoxia; R53.2 Functional quadriplegia; J12.82 Pneumonia due to coronavirus disease 2019; J15.9 Unspecified bacterial pneumonia; N17.0 Acute kidney failure with tubular necrosis; E44.0 Moderate protein-calorie malnutrition; E87.0 Hyperosmolality and hypernatremia; N39.0 Urinary tract infection, site not specified; E87.1 Hypo-osmolality and hyponatremia; D68.69 Other thrombophilia; E86.0 Dehydration; F03.90 Unspecified dementia, unspecified severity, without behavioral disturbance, psychotic disturbance, mood disturbance, and anxiety; Z93.1 Gastrostomy status; Z87.891 Personal history of nicotine dependence; R13.10 Dysphagia, unspecified; E88.09 Other disorders of plasma-protein metabolism, not elsewhere classified; B95.2 Enterococcus as the cause of diseases classified elsewhere; Z85.818 Personal history of malignant neoplasm of other sites of lip, oral cavity, and pharynx
CPT/HCPCS: 36415; 36600; 71045-TC; 80048-TC; 80061-TC; 80076-TC; 80202-TC; 81001; 82803-TC; 82962-TC; 83605-TC; 83735-TC; 84100-TC; 84484-TC; 85025-TC; 85378-TC; 85385-TC; 85730-TC; 86140-TC; 87040-TC; 87081-TC; 87086-TC; 87186-TC; 94799-TC; A4217; A6248; A6403; C9803; G0378; J0456; J0696; J1100; J1650; J2185; J2405; J2543; J3370; J7030; J7040; J7060; J7070

== ENCOUNTER 2023-06-21 22:49 | Inpatient (IN) | payer MEDICARE, MEDICAID ==
[~2023-06-21] VITALS: Ht 172.7 cm; Wt 101.6 kg
[~2023-06-21 22:49] MED LIST: ENOX40DI SQ; LACT-209 GT
[2023-06-21] MEDS ORDERED: PIPERACILLIN /TAZOBACTAM 3.375 G in IV D5W 50 ML IV ONE (23:00)
[2023-06-21] MEDS ORDERED: IV NS 0.9% 1,000 ML BAG IV ONE (23:00)
[2023-06-21] MEDS ORDERED: VANCOMYCIN 1 GM in IV D5W 250 ML IV ONE (23:00)
[2023-06-21] MEDS ORDERED: PIPERACI/TAZO 3.375GM/D5W 50ML PB IV ONE (23:13)
[2023-06-21] MEDS ORDERED: VANCOMYCIN 1 GM /D5W 250 ML PB IV ONE (23:13)
[2023-06-21] MEDS ORDERED: IV NS 0.9% 1,000 ML IV PRN (23:30)
[2023-06-21] MEDS ORDERED: JEVITY 1.2 CAL 1,000 ML BOTTLE GT PRN (23:30)
[2023-06-21] MEDS ORDERED: AMIODARONE 150 MG/3 ML VIAL IV ONE (23:49)
[2023-06-21 23:54] LABS: APPEARANCE,URINE SLIGHTLY CLOUDY (CLEAR); BILIRUBIN,URINE NEGATIVE (NEGATIVE); BLOOD, URINE 1+ Ery/uL (NEGATIVE); COLOR,URINE YELLOW (YELLOW); KETONES,URINE NEGATIVE (NEGATIVE); LEUKOCYTE ESTERASE ,URINE 2+ (NEGATIVE); NITRITE, URINE NEGATIVE (NEGATIVE); PH,URINE 5.5 (5.0-8.0); PROTEIN,URINE 2+ mg/dl (NEGATIVE); UGLUCOSE NEGATIVE (NEGATIVE); UROBILINOGEN,URINE 0.2 EU/dL (0.2)
[2023-06-21 23:59] LABS: CALCIUM, SERUM 9.2 mg/dL (8.5-10.1); CARBON DIOXIDE 32 mmol/L (21-32); CHLORIDE 81 mmol/L (98-107); CREATININE 1.8 mg/dL (0.6-1.3); GLUCOSE 151 mg/dL (74-106); POTASSIUM 4.3 mmol/L (3.5-5.1); SODIUM SERUM 126 mmol/L (136-145)
[2023-06-22] VITALS (11 sets, daily range): BP systolic 91–142; BP diastolic 55–71; TEMP 97.6–99.2; O2SAT 95–100
[2023-06-22 00:04] LABS: INR 1.56 (0.91-1.10); PARTIAL THROMBOPLASTIN TIME 38.8 SEC (24.3-34.3); PROTHROMBIN TIME 16.1 SECS (9.2-11.1)
[2023-06-22 00:05] LABS: UREA NITROGEN, BLOOD 107 mg/dL (7-18)
[2023-06-22] MEDS ORDERED: AMIODARONE 150 MG/3 ML VIAL IV ONE ×4 (00:07→00:18)
[2023-06-22 00:08] LABS: ALANINE AMINOTRANSFERASE 26 U/L (12-78); ALKALINE PHOSPHATASE 244 U/L (46-116); ASPARTATE AMINOTRANSFERASE 71 U/L (15-37); BILIRUBIN,DIRECT 0.5 mg/dL (0.0-0.2); BILIRUBIN,TOTAL 0.6 mg/dL (0.2-1.0); TOTAL PROTEIN, SERUM 7.8 g/dL (6.4-8.2)
[2023-06-22 00:09] LABS: ALBUMIN 1.1 g/dL (3.4-5.0)
[2023-06-22 00:13] LABS: BASOPHILS % (AUTO) 0.1 % (0.0-2.0); HEMATOCRIT 26 % (39-51); HEMOGLOBIN 8.3 g/dL (13.5-17.5); LYMPHOCYTES % (AUTO) 3.1 % (20.0-44.0); MEAN CORPUSCULAR HEMOGLOBIN 29 PG (26.0-33.0); MEAN CORPUSCULAR HGB CONC 32 g/dl (31.0-36.0); MEAN CORPUSCULAR VOLUME 91 fL (80-96); MONOCYTES # (AUTO) 2.9 K/uL (0.1-1.30); MONOCYTES % (AUTO) 8.9 % (2.0-12.0); NEUTROPHILS # (AUTO) 28.6 K/uL (1.8-8.9); NEUTROPHILS % (AUTO) 87.9 % (43.0-81.0); PLATELET COUNT (AUTO) 288 K/uL (150-450); RED BLOOD CELL COUNT(AUTO) 2.82 MIL/uL (4.5-6.0); RED CELL DISTRIBUTION WIDTH 18.6 % (11.5-15.0)
[2023-06-22 00:15] LABS: LACTIC ACID 3.4 mmol/L (0.4-2.0)
[2023-06-22 00:17] LABS: WHITE BLOOD COUNT (AUTO) 32.6 K/uL (4.3-11.0)
[2023-06-22] MEDS: AMIODARONE 450 MG in IV D5W 241 ML IV PRN ×2 (00:30→08:14)
[2023-06-22 00:39] LABS: ADD URINE CULTURE YES; BACTERIA,URINE 2+ /HPF (None Seen); MUCUS,URINE Moderate /LPF (None Seen); SQUAMOUS EPITHELIAL CELL,UR None Seen /HPF (None Seen)
[2023-06-22 01:04] LABS: BAND % (MANUAL) 12 % (0.0-5.0); LYMPHOCYTES % (MANUAL) 2 % (16-48); MONOCYTES % (MANUAL) 6 % (0-11.0); NEUTROPHILS % (MANUAL) 80 (42-76); PLATELET ESTIMATE ADEQUATE
[2023-06-22] MEDS ORDERED: MORPHINE SULFATE INJ 2 MG/ML DISP.SYRIN IV PRN (04:30)
[2023-06-22] MEDS ORDERED: ONDANSETRON HCL/PF 4 MG/2 ML VIAL IVP PRN (04:30)
[2023-06-22] MEDS ORDERED: hydrALAZINE HCL IV 20 MG VIAL IV PRN (04:30)
[2023-06-22] MEDS ORDERED: ACETAMINOPHEN 325 MG TABLET PO PRN (04:30)
[2023-06-22] MEDS ORDERED: CEFEPIME 2 GM in IV D5W 100 ML IV ONE (05:00)
[2023-06-22] MEDS ORDERED: CEFEPIME 1 GM VIAL ONE (06:13)
[2023-06-22] MEDS ORDERED: ACETAMINOPHEN 650 MG/20.3 ML UDC GT PRN (07:00)
[2023-06-22] MEDS ORDERED: VANCOMYCIN 1.5 GM in IV D5W 500 ML IV SCH (08:00)
[2023-06-22] MEDS ORDERED: JEVITY 1.2 CAL 1,000 ML BOTTLE GT PRN (08:30)
[2023-06-22] MEDS: VANCOMYCIN 1.25 GM in IV D5W 250 ML IV SCH (09:12)
[2023-06-22] MEDS ORDERED: FAMO20TA80 GT (09:17)
[2023-06-22] MEDS ORDERED: NUT.237L31 GT (09:17)
[2023-06-22] MEDS ORDERED: CRAN3875 GT (09:17)
[2023-06-22] MEDS ORDERED: CHOL100043 GT (09:17)
[2023-06-22] MEDS ORDERED: MAGN400O6 GT (09:17)
[2023-06-22] MEDS ORDERED: POLY17PO4 GT (09:17)
[2023-06-22] MEDS ORDERED: ONDA-97 GT (09:17)
[2023-06-22] MEDS ORDERED: CALCIUM ALGINATE TP (09:17)
[2023-06-22] MEDS ORDERED: COLL1POW2 MC (09:17)
[2023-06-22] MEDS ORDERED: ZINC50TA71 GT (09:17)
[2023-06-22] MEDS ORDERED: FERR300L GT (09:17)
[2023-06-22] MEDS ORDERED: ALLA266C2 TP (09:17)
[2023-06-22] MEDS ORDERED: LEVO50TA GT (09:17)
[2023-06-22] MEDS ORDERED: DOCU100T2 GT (09:17)
[2023-06-22] MEDS ORDERED: LACO10SO GT (09:17)
[2023-06-22] MEDS ORDERED: ATOR80TA GT (09:17)
[2023-06-22] MEDS ORDERED: BISA10SU11 RC (09:17)
[2023-06-22] MEDS ORDERED: SENN-261 GT (09:17)
[2023-06-22] MEDS ORDERED: INSU100V39 SQ (09:17)
[2023-06-22] MEDS ORDERED: ACET160S GT ×3 (09:17)
[2023-06-22] MEDS ORDERED: VALP250S4 GT (09:17)
[2023-06-22] MEDS ORDERED: LEVE100S GT (09:17)
[2023-06-22] MEDS ORDERED: VITA1TAB20 GT (09:17)
[2023-06-22] MEDS ORDERED: AMIN30LI2 GT (09:17)
[2023-06-22] MEDS ORDERED: CHLO473M5 MM (09:17)
[2023-06-22] MEDS ORDERED: POVI3780 TP (09:17)
[2023-06-22] MEDS ORDERED: MELA5TAB GT (09:17)
[2023-06-22] MEDS ORDERED: ALBU2.5V38 IH (09:17)
[2023-06-22] MEDS ORDERED: PETR113O TP (09:17)
[2023-06-22] MEDS ORDERED: ASPI-992 GT (09:17)
[2023-06-22] MEDS ORDERED: NA P133E RC (09:17)
[2023-06-22] MEDS ORDERED: ASCO-352 GT (09:17)
[2023-06-22] MEDS ORDERED: MULT9LIQ9 GT (09:17)
[2023-06-22] MEDS ORDERED: ALBU2.5V13 IH (09:17)
[2023-06-22] MEDS ORDERED: ZINC1CAP3 GT (09:19)
[2023-06-22] MEDS ORDERED: IV NS 0.9% 250 ML IV PRN (09:30)
[2023-06-22 11:30] LABS: HEMOGLOBIN 7.2 g/dL (13.5-17.5)
[2023-06-22 12:51] LABS: EOSINOPHILS % (AUTO) 0.1 % (0.0-6.0)
[2023-06-22 13:00] LABS: CALCIUM, SERUM 8.6 mg/dL (8.5-10.1); CARBON DIOXIDE 30 mmol/L (21-32); CHLORIDE 83 mmol/L (98-107); CREATININE 1.6 mg/dL (0.6-1.3); GLUCOSE 138 mg/dL (74-106); MAGNESIUM 3.2 mg/dL (1.8-2.4); POTASSIUM 3.8 mmol/L (3.5-5.1); SODIUM SERUM 124 mmol/L (136-145)
[2023-06-22 13:08] LABS: BASOPHILS % (AUTO) 0.1 % (0.0-2.0); HEMATOCRIT 22 % (39-51); LYMPHOCYTES # (AUTO) 1.2 K/uL (0.8-4.8); LYMPHOCYTES % (AUTO) 3.8 % (20.0-44.0); MEAN CORPUSCULAR HEMOGLOBIN 29 PG (26.0-33.0); MEAN CORPUSCULAR HGB CONC 32 g/dl (31.0-36.0); MEAN CORPUSCULAR VOLUME 92 fL (80-96); MONOCYTES # (AUTO) 4.1 K/uL (0.1-1.30); MONOCYTES % (AUTO) 12.5 % (2.0-12.0); NEUTROPHILS # (AUTO) 27.2 K/uL (1.8-8.9); NEUTROPHILS % (AUTO) 83.5 % (43.0-81.0); PLATELET COUNT (AUTO) 234 K/uL (150-450); RED BLOOD CELL COUNT(AUTO) 2.36 MIL/uL (4.5-6.0); RED CELL DISTRIBUTION WIDTH 18.8 % (11.5-15.0)
[2023-06-22 13:12] LABS: URIC ACID 15.1 mg/dL (2.6-7.2)
[2023-06-22 13:14] LABS: UREA NITROGEN, BLOOD 111 mg/dL (7-18)
[2023-06-22 13:15] LABS: HEMOGLOBIN 6.9 g/dL (13.5-17.5); WHITE BLOOD COUNT (AUTO) 32.6 K/uL (4.3-11.0)
[2023-06-22 13:44] LABS: ANISOCYTOSIS 1+; LYMPHOCYTES % (MANUAL) 2 % (16-48); MONOCYTES % (MANUAL) 17 % (0-11.0); NEUTROPHILS % (MANUAL) 81 (42-76); PLATELET ESTIMATE ADEQUATE
[2023-06-22 15:12] LABS: URINE TOTAL PROTEIN 205.8 mg/dL (0-11.9)
[2023-06-22 15:20] LABS: APPEARANCE,URINE CLOUDY (CLEAR); BILIRUBIN,URINE NEGATIVE (NEGATIVE); BLOOD, URINE 2+ Ery/uL (NEGATIVE); COLOR,URINE YELLOW (YELLOW); KETONES,URINE NEGATIVE (NEGATIVE); LEUKOCYTE ESTERASE ,URINE 3+ (NEGATIVE); NITRITE, URINE NEGATIVE (NEGATIVE); PROTEIN,URINE 2+ mg/dl (NEGATIVE); UGLUCOSE NEGATIVE (NEGATIVE); UROBILINOGEN,URINE 0.2 EU/dL (0.2)
[2023-06-22 15:39] LABS: ADD URINE CULTURE YES; BACTERIA,URINE 4+ /HPF (None Seen); RBC,URINE 21-50 /HPF (0-2); SQUAMOUS EPITHELIAL CELL,UR 0-2 /HPF (None Seen); TRIPLE PHOSPHATE CRYSTAL,UR Few /HPF (None Seen); WBC,URINE 51-80 /HPF (0-3)
[2023-06-22] MEDS ORDERED: NEPRO 1,000 ML BOTTLE GT PRN (16:00)
[2023-06-22] MEDS: CEFEPIME 2 GM in IV D5W 100 ML IV SCH (17:06)
[2023-06-22 17:21] LABS: EOSINOPHIL,URINE None Seen
[2023-06-22] MEDS ORDERED: MAGNESIUM HYDROXIDE 30 ML UDC GT PRN (18:00)
[2023-06-22] MEDS ORDERED: NA PHOS,M-B/NA PHOS,DI-BA 1 EA ENEMA RC PRN (18:00)
[2023-06-22] MEDS ORDERED: HOME MED MISCELLANEOUS XX SCH (18:00)
[2023-06-22] MEDS ORDERED: ASCORBIC ACID 500 MG TABLET GT SCH (18:00)
[2023-06-22] MEDS ORDERED: BISACODYL SUPP (10 MG) 10 MG/SUPP.RECT SUPP.RECT RC PRN (18:00)
[2023-06-22] MEDS ORDERED: GLUCERNA 1.5 1,000 ML BOTTLE GT SCH (18:00)
[2023-06-22 18:12] LABS: IRON, SERUM 11 ug/dl (50-175); TOTAL IRON BINDING CAPACITY 151 ug/dl (250-450)
[2023-06-22] MEDS: PANTOPRAZOLE 40 MG VIAL IV SCH (18:52)
[2023-06-22] MEDS ORDERED: IV NS 0.9% 500 ML IV PRN (19:30)
[2023-06-22] MEDS: VALPROIC ACID 250 MG/5 ML UDC GT SCH (21:40)
[2023-06-22] MEDS: LACOSAMIDE ORAL SOLN 50 MG/5 ML UDC GT SCH (21:42)
[2023-06-22] MEDS: CHLORHEXIDINE GLUCONATE 15 ML UDC MM SCH (21:42)
[2023-06-22] MEDS: SENNOSIDES 8.6 MG TABLET GT SCH (21:43)
[2023-06-22] MEDS: CHOLECALCIFEROL 1,000 UNIT TABLET (VIT D3) GT SCH (21:45)
[2023-06-22] MEDS ORDERED: ATORVASTATIN 40 MG TABLET GT SCH (22:00)
[2023-06-22] MEDS: Z GUARD REMEDY 2 OZ OINT TP SCH (22:01)
[2023-06-23] VITALS: BP 102/54; TEMP 98.2; O2SAT 99
[2023-06-23 01:47] LABS: HEMOGLOBIN 8.6 g/dL (13.5-17.5)
[2023-06-23 04:00] VITALS: BP 112/65; TEMP 97.6; O2SAT 95
[2023-06-23] MEDS: CEFEPIME 2 GM in IV D5W 100 ML IV SCH ×2 (05:11→17:52)
[2023-06-23] MEDS ORDERED: VALPROIC ACID 250 MG/5 ML UDC ONE (05:18)
[2023-06-23 05:21] LABS: BILIRUBIN,TOTAL 0.6 mg/dL (0.2-1.0); CALCIUM, SERUM 8.5 mg/dL (8.5-10.1); CREATININE 1.3 mg/dL (0.6-1.3); MAGNESIUM 3.3 mg/dL (1.8-2.4); PHOSPHORUS 6.5 mg/dL (2.5-4.9); POTASSIUM 3.9 mmol/L (3.5-5.1); TOTAL PROTEIN, SERUM 6.9 g/dL (6.4-8.2)
[2023-06-23 05:24] LABS: BASOPHILS # (AUTO) 0.2 K/uL (0.0-0.2); BASOPHILS % (AUTO) 0.7 % (0.0-2.0); EOSINOPHILS # (AUTO) 0.1 K/uL (0.0-0.7); EOSINOPHILS % (AUTO) 0.4 % (0.0-6.0); HEMATOCRIT 28 % (39-51); HEMOGLOBIN 8.8 g/dL (13.5-17.5); LYMPHOCYTES % (AUTO) 4.7 % (20.0-44.0); MEAN CORPUSCULAR HEMOGLOBIN 29 PG (26.0-33.0); MEAN CORPUSCULAR HGB CONC 31 g/dl (31.0-36.0); MEAN CORPUSCULAR VOLUME 91 fL (80-96); MONOCYTES # (AUTO) 1.4 K/uL (0.1-1.30); MONOCYTES % (AUTO) 6.6 % (2.0-12.0); NEUTROPHILS # (AUTO) 19.2 K/uL (1.8-8.9); NEUTROPHILS % (AUTO) 87.6 % (43.0-81.0); PLATELET COUNT (AUTO) 226 K/uL (150-450)
[2023-06-23 05:30] LABS: ALBUMIN 0.8 g/dL (3.4-5.0)
[2023-06-23] MEDS: VALPROIC ACID 250 MG/5 ML UDC GT SCH ×3 (05:32→20:41)
[2023-06-23] MEDS: LEVOTHYROXINE SODIUM 50 MCG TABLET GT SCH (07:32)
[2023-06-23 08:00] VITALS: BP 108/60; TEMP 98; O2SAT 100
[2023-06-23] MEDS ORDERED: VANCOMYCIN 1.25 GM in IV D5W 250 ML IV SCH (08:00)
[2023-06-23] MEDS: PROSOURCE / PROSTAT (PYXIS) 30 ML UDC GT SCH ×2 (08:04→16:57)
[2023-06-23] MEDS: LACOSAMIDE ORAL SOLN 50 MG/5 ML UDC GT SCH ×2 (08:11→20:42)
[2023-06-23] MEDS: LEVETIRACETAM SOL (5 ML) 100 MG/ML UDC GT SCH ×2 (08:14→17:49)
[2023-06-23] MEDS: DOCUSATE SODIUM LIQ 100 MG/10 ML UDC NG SCH ×2 (08:14→17:00)
[2023-06-23] MEDS: MULTIVITAMINS,THERAGRAN 1 UDTAB TABLET GT SCH (08:14)
[2023-06-23] MEDS: PANTOPRAZOLE 40 MG VIAL IV SCH ×2 (08:14→17:47)
[2023-06-23] MEDS: CHLORHEXIDINE GLUCONATE 15 ML UDC MM SCH ×2 (08:14→20:42)
[2023-06-23] MEDS: POLYETHYLENE GLYCOL 3350 17 GM POWD.PACK GT SCH (08:14)
[2023-06-23] MEDS: THIAMINE HCL 100 MG TABLET GT SCH (08:15)
[2023-06-23] MEDS: VANCOMYCIN 1.25 GM in IV D5W 250 ML IV SCH (08:20)
[2023-06-23] MEDS: AMIODARONE HCL 200 MG TABLET PO SCH ×3 (08:20→17:49)
[2023-06-23 08:58] LABS: BAND % (MANUAL) 8 % (0.0-5.0); LYMPHOCYTES % (MANUAL) 3 % (16-48); MONOCYTES % (MANUAL) 6 % (0-11.0); NEUTROPHILS % (MANUAL) 83 (42-76)
[2023-06-23 08:59] LABS: PLATELET ESTIMATE ADEQUATE
[2023-06-23] MEDS ORDERED: ZINC SULFATE 220 MG CAPSULE GT SCH (09:00)
[2023-06-23] MEDS ORDERED: FERROUS SULFATE UDC 300 MG/5 ML UDC GT SCH (09:00)
[2023-06-23 11:24] LABS: HEMOGLOBIN 7.4 g/dL (13.5-17.5)
[2023-06-23] MEDS ORDERED: NEPRO 1,000 ML BOTTLE GT PRN ×2 (11:30→12:00)
[2023-06-23 12:00] VITALS: BP 114/64; TEMP 97.9; O2SAT 100
[2023-06-23] MEDS: SOD FERRIC GLUC 125 MG in IV NS 0.9% 100 ML IV SCH (14:01)
[2023-06-23 14:34] LABS: CALCIUM, SERUM 7.8 mg/dL (8.5-10.1); CARBON DIOXIDE 29 mmol/L (21-32); CHLORIDE 87 mmol/L (98-107); CREATININE 1.1 mg/dL (0.6-1.3); GLUCOSE 166 mg/dL (74-106); SODIUM SERUM 126 mmol/L (136-145)
[2023-06-23 14:47] LABS: POTASSIUM 2.8 mmol/L (3.5-5.1); UREA NITROGEN, BLOOD 99 mg/dL (7-18)
[2023-06-23 16:00] VITALS: BP 131/62; TEMP 98.1; O2SAT 100
[2023-06-23] MEDS ORDERED: POTASSIUM CHLORIDE 20 MEQ POWDER PACKET GT SCH (16:00)
[2023-06-23 16:49] LABS: OCCULT BLOOD STOOL POSITIVE (NEGATIVE)
[2023-06-23] MEDS ORDERED: POTASSIUM CHLORIDE 20 MEQ POWDER PACKET GT ONE (17:00)
[2023-06-23] MEDS: CHOLECALCIFEROL 1,000 UNIT TABLET (VIT D3) GT SCH (17:48)
[2023-06-23] MEDS: Z GUARD REMEDY 2 OZ OINT TP SCH (17:51)
[2023-06-23] MEDS: NEPRO 1,000 ML BOTTLE GT PRN (18:16)
[2023-06-23 19:30] LABS: HEMOGLOBIN 7.3 g/dL (13.5-17.5)
[2023-06-23 20:00] VITALS: BP 112/62; TEMP 97.9; O2SAT 99
[2023-06-23] MEDS: SENNOSIDES 8.6 MG TABLET GT SCH (21:06)
[2023-06-23] MEDS: IV NS 0.9% 1,000 ML IV PRN (21:07)
[2023-06-24] VITALS: BP 105/63; TEMP 98.9; O2SAT 100
[2023-06-24 03:50] LABS: CALCIUM, SERUM 8.2 mg/dL (8.5-10.1); CARBON DIOXIDE 27 mmol/L (21-32); CHLORIDE 91 mmol/L (98-107); CREATININE 1.1 mg/dL (0.6-1.3); GLUCOSE 183 mg/dL (74-106); HEMOGLOBIN 7.8 g/dL (13.5-17.5); POTASSIUM 3.4 mmol/L (3.5-5.1); SODIUM SERUM 128 mmol/L (136-145)
[2023-06-24 03:53] LABS: UREA NITROGEN, BLOOD 94 mg/dL (7-18)
[2023-06-24 04:00] VITALS: BP 108/67; TEMP 97.9; O2SAT 100
[2023-06-24] MEDS: CEFEPIME 2 GM in IV D5W 100 ML IV SCH ×2 (05:16→17:33)
[2023-06-24] MEDS: VALPROIC ACID 250 MG/5 ML UDC GT SCH ×3 (05:19→21:32)
[2023-06-24] MEDS: IV NS 0.9% 1,000 ML IV PRN ×2 (05:34→17:38)
[2023-06-24] MEDS ORDERED: AMIODARONE HCL 200 MG TABLET GT SCH (06:39)
[2023-06-24] MEDS: LEVOTHYROXINE SODIUM 50 MCG TABLET GT SCH (07:14)
[2023-06-24 08:00] VITALS: BP 107/69; TEMP 96.5; O2SAT 100
[2023-06-24] MEDS: MULTIVITAMINS,THERAGRAN 1 UDTAB TABLET GT SCH (08:21)
[2023-06-24] MEDS: POLYETHYLENE GLYCOL 3350 17 GM POWD.PACK GT SCH (08:21)
[2023-06-24] MEDS: PANTOPRAZOLE 40 MG VIAL IV SCH ×2 (08:21→17:32)
[2023-06-24] MEDS: DOCUSATE SODIUM LIQ 100 MG/10 ML UDC NG SCH ×2 (08:21→17:31)
[2023-06-24] MEDS: LEVETIRACETAM SOL (5 ML) 100 MG/ML UDC GT SCH ×2 (08:21→17:30)
[2023-06-24] MEDS: CHLORHEXIDINE GLUCONATE 15 ML UDC MM SCH ×2 (08:21→21:31)
[2023-06-24] MEDS: THIAMINE HCL 100 MG TABLET GT SCH (08:21)
[2023-06-24] MEDS: AMIODARONE HCL 200 MG TABLET GT SCH ×3 (08:23→17:32)
[2023-06-24] MEDS: PROSOURCE / PROSTAT (PYXIS) 30 ML UDC GT SCH ×2 (08:24→17:30)
[2023-06-24] MEDS: VANCOMYCIN HCL 0.75 GM in IV D5W 250 ML IV SCH ×2 (08:26→08:45)
[2023-06-24] MEDS: LACOSAMIDE ORAL SOLN 50 MG/5 ML UDC GT SCH ×2 (08:42→21:32)
[2023-06-24] MEDS ORDERED: POTASSIUM CHLORIDE 20 MEQ POWDER PACKET GT ONE (09:00)
[2023-06-24 11:31] LABS: HEMOGLOBIN 7.1 g/dL (13.5-17.5)
[2023-06-24 12:00] VITALS: BP 112/63; TEMP 97; O2SAT 99
[2023-06-24] MEDS: NEOMY SULF/BACITRA/POLYMYXIN B 3.5 GM TUBE LEFTEYE SCH ×3 (13:31→21:32)
[2023-06-24] MEDS: SOD FERRIC GLUC 125 MG in IV NS 0.9% 100 ML IV SCH (14:06)
[2023-06-24 16:00] VITALS: BP 112/63; TEMP 97; O2SAT 99
[2023-06-24] MEDS: CHOLECALCIFEROL 1,000 UNIT TABLET (VIT D3) GT SCH (17:31)
[2023-06-24] MEDS: Z GUARD REMEDY 2 OZ OINT TP SCH (17:33)
[2023-06-24 20:00] VITALS: BP 110/56; TEMP 98.2; O2SAT 99
[2023-06-24 20:01] LABS: HEMOGLOBIN 7.3 g/dL (13.5-17.5)
[2023-06-24] MEDS: SENNOSIDES 8.6 MG TABLET GT SCH (21:31)
[2023-06-25] VITALS: BP 116/52; TEMP 98; O2SAT 98
[2023-06-25] MEDS: NEOMY SULF/BACITRA/POLYMYXIN B 3.5 GM TUBE LEFTEYE SCH ×6 (01:09→21:56)
[2023-06-25] MEDS: NEPRO 1,000 ML BOTTLE GT PRN (02:10)
[2023-06-25 02:42] LABS: HEMOGLOBIN 7.2 g/dL (13.5-17.5)
[2023-06-25 04:00] VITALS: BP 121/66; TEMP 98.2; O2SAT 99
[2023-06-25] MEDS: VALPROIC ACID 250 MG/5 ML UDC GT SCH ×3 (05:00→21:12)
[2023-06-25] MEDS: CEFEPIME 2 GM in IV D5W 100 ML IV SCH ×3 (05:35→21:13)
[2023-06-25 08:00] VITALS: BP 126/62; TEMP 98.2; O2SAT 99
[2023-06-25 08:42] LABS: BASOPHILS % (AUTO) 0.1 % (0.0-2.0); EOSINOPHILS # (AUTO) 0.1 K/uL (0.0-0.7); EOSINOPHILS % (AUTO) 0.4 % (0.0-6.0); HEMATOCRIT 23 % (39-51); HEMOGLOBIN 7.3 g/dL (13.5-17.5); LYMPHOCYTES # (AUTO) 1.1 K/uL (0.8-4.8); LYMPHOCYTES % (AUTO) 5.2 % (20.0-44.0); MEAN CORPUSCULAR HEMOGLOBIN 29 PG (26.0-33.0); MEAN CORPUSCULAR HGB CONC 32 g/dl (31.0-36.0); MEAN CORPUSCULAR VOLUME 90 fL (80-96); MONOCYTES # (AUTO) 2.6 K/uL (0.1-1.30); MONOCYTES % (AUTO) 12.2 % (2.0-12.0); NEUTROPHILS # (AUTO) 17.8 K/uL (1.8-8.9); NEUTROPHILS % (AUTO) 82.1 % (43.0-81.0); PLATELET COUNT (AUTO) 151 K/uL (150-450); RED BLOOD CELL COUNT(AUTO) 2.55 MIL/uL (4.5-6.0); RED CELL DISTRIBUTION WIDTH 18.9 % (11.5-15.0); WHITE BLOOD COUNT (AUTO) 21.7 K/uL (4.3-11.0)
[2023-06-25 08:58] LABS: ALANINE AMINOTRANSFERASE 17 U/L (12-78); ALKALINE PHOSPHATASE 143 U/L (46-116); ASPARTATE AMINOTRANSFERASE 39 U/L (15-37); BILIRUBIN,TOTAL 0.4 mg/dL (0.2-1.0); CALCIUM, SERUM 8.5 mg/dL (8.5-10.1); CARBON DIOXIDE 25 mmol/L (21-32); CHLORIDE 97 mmol/L (98-107); CREATININE 0.8 mg/dL (0.6-1.3); GLUCOSE 102 mg/dL (74-106); MAGNESIUM 2.7 mg/dL (1.8-2.4); PHOSPHORUS 3.6 mg/dL (2.5-4.9); POTASSIUM 3.2 mmol/L (3.5-5.1); SODIUM SERUM 134 mmol/L (136-145); TOTAL PROTEIN, SERUM 6.3 g/dL (6.4-8.2)
[2023-06-25] MEDS ORDERED: VANCOMYCIN 1.25 GM in IV D5W 250 ML IV SCH (09:00)
[2023-06-25 09:02] LABS: UREA NITROGEN, BLOOD 81 mg/dL (7-18)
[2023-06-25 09:03] LABS: ALBUMIN 0.8 g/dL (3.4-5.0)
[2023-06-25] MEDS: CHLORHEXIDINE GLUCONATE 15 ML UDC MM SCH ×2 (09:25→21:04)
[2023-06-25] MEDS: PANTOPRAZOLE 40 MG VIAL IV SCH ×2 (09:25→17:22)
[2023-06-25] MEDS: LEVETIRACETAM SOL (5 ML) 100 MG/ML UDC GT SCH ×2 (09:25→17:22)
[2023-06-25] MEDS: LEVOTHYROXINE SODIUM 50 MCG TABLET GT SCH (09:25)
[2023-06-25] MEDS: DOCUSATE SODIUM LIQ 100 MG/10 ML UDC NG SCH ×2 (09:25→17:25)
[2023-06-25] MEDS: MULTIVITAMINS,THERAGRAN 1 UDTAB TABLET GT SCH (09:26)
[2023-06-25] MEDS: THIAMINE HCL 100 MG TABLET GT SCH (09:27)
[2023-06-25] MEDS: AMIODARONE HCL 200 MG TABLET GT SCH ×3 (09:28→17:00)
[2023-06-25] MEDS: PROSOURCE / PROSTAT (PYXIS) 30 ML UDC GT SCH ×2 (09:29→17:23)
[2023-06-25] MEDS: POLYETHYLENE GLYCOL 3350 17 GM POWD.PACK GT SCH (09:29)
[2023-06-25] MEDS: LACOSAMIDE ORAL SOLN 50 MG/5 ML UDC GT SCH ×2 (09:34→21:07)
[2023-06-25] MEDS ORDERED: POTASSIUM CHLORIDE 20 MEQ POWDER PACKET GT ONE (10:30)
[2023-06-25 11:21] LABS: HEMOGLOBIN 7.4 g/dL (13.5-17.5)
[2023-06-25 12:00] VITALS: BP 125/65; TEMP 97.7; O2SAT 99
[2023-06-25 12:34] LABS: BAND % (MANUAL) 1 % (0.0-5.0); MONOCYTES % (MANUAL) 10 % (0-11.0); MYELOCYTES % 3 % (0-0); NEUTROPHILS % (MANUAL) 86 (42-76); PLATELET ESTIMATE ADEQUATE
[2023-06-25 12:35] LABS: ANISOCYTOSIS 1+; OVALOCYTES 1+
[2023-06-25 12:37] LABS: LYMPHOCYTES % (MANUAL) 0 % (16-48)
[2023-06-25] MEDS: SOD FERRIC GLUC 125 MG in IV NS 0.9% 100 ML IV SCH (14:51)
[2023-06-25 16:05] VITALS: BP 109/63; TEMP 97.7; O2SAT 99
[2023-06-25] MEDS: CHOLECALCIFEROL 1,000 UNIT TABLET (VIT D3) GT SCH (17:24)
[2023-06-25] MEDS: Z GUARD REMEDY 2 OZ OINT TP SCH (18:13)
[2023-06-25 19:55] LABS: HEMOGLOBIN 7.2 g/dL (13.5-17.5)
[2023-06-25 20:00] VITALS: BP 110/63; TEMP 97.5; O2SAT 100
[2023-06-25] MEDS: SENNOSIDES 8.6 MG TABLET GT SCH (21:12)
[2023-06-26] VITALS (8 sets, daily range): BP systolic 90–110; BP diastolic 56–63; TEMP 97.8–98.8; O2SAT 99–100
[2023-06-26] MEDS: NEOMY SULF/BACITRA/POLYMYXIN B 3.5 GM TUBE LEFTEYE SCH ×6 (01:16→22:07)
[2023-06-26] MEDS: CEFEPIME 2 GM in IV D5W 100 ML IV SCH (04:32)
[2023-06-26] MEDS: NEPRO 1,000 ML BOTTLE GT PRN (04:40)
[2023-06-26] MEDS ORDERED: VALPROIC ACID 250 MG/5 ML UDC ONE (05:18)
[2023-06-26] MEDS: VALPROIC ACID 250 MG/5 ML UDC GT SCH ×3 (05:21→22:05)
[2023-06-26 06:48] LABS: CALCIUM, SERUM 8.7 mg/dL (8.5-10.1); CARBON DIOXIDE 23 mmol/L (21-32); CHLORIDE 102 mmol/L (98-107); GLUCOSE 163 mg/dL (74-106); POTASSIUM 3.4 mmol/L (3.5-5.1); SODIUM SERUM 137 mmol/L (136-145); UREA NITROGEN, BLOOD 74 mg/dL (7-18)
[2023-06-26] MEDS: IV NS 0.9% 1,000 ML IV PRN (07:47)
[2023-06-26 08:07] LABS: HEMOGLOBIN 7.1 g/dL (13.5-17.5)
[2023-06-26] MEDS: AMIODARONE HCL 200 MG TABLET GT SCH ×3 (08:51→16:50)
[2023-06-26] MEDS: CHLORHEXIDINE GLUCONATE 15 ML UDC MM SCH ×2 (08:51→22:04)
[2023-06-26] MEDS: DOCUSATE SODIUM LIQ 100 MG/10 ML UDC NG SCH ×2 (08:51→16:48)
[2023-06-26] MEDS: LEVOTHYROXINE SODIUM 50 MCG TABLET GT SCH (08:52)
[2023-06-26] MEDS: PANTOPRAZOLE 40 MG VIAL IV SCH ×2 (08:52→16:48)
[2023-06-26] MEDS: LEVETIRACETAM SOL (5 ML) 100 MG/ML UDC GT SCH ×2 (08:52→16:48)
[2023-06-26] MEDS: THIAMINE HCL 100 MG TABLET GT SCH (08:52)
[2023-06-26] MEDS: MULTIVITAMINS,THERAGRAN 1 UDTAB TABLET GT SCH (08:52)
[2023-06-26] MEDS: POLYETHYLENE GLYCOL 3350 17 GM POWD.PACK GT SCH (08:53)
[2023-06-26] MEDS: PROSOURCE / PROSTAT (PYXIS) 30 ML UDC GT SCH ×2 (08:53→16:49)
[2023-06-26] MEDS: THERAHONEY GEL 1.5 OZ TUBE TP SCH ×2 (09:15→12:00)
[2023-06-26] MEDS: LACOSAMIDE ORAL SOLN 50 MG/5 ML UDC GT SCH ×2 (09:15→22:06)
[2023-06-26] MEDS ORDERED: POTASSIUM CHLORIDE 20 MEQ TAB.PRT.SR PO SCH (10:00)
[2023-06-26] MEDS: MEROPENEM 1 G in IV NS 0.9% 100 ML IV SCH ×3 (10:23→22:04)
[2023-06-26 11:09] LABS: HEMOGLOBIN 7.5 g/dL (13.5-17.5)
[2023-06-26] MEDS ORDERED: IV NS 0.9% 1,000 ML IV ONE (14:00)
[2023-06-26] MEDS: MIDODRINE HCL (5MG) 5 MG TABLET GT SCH ×2 (14:02→16:48)
[2023-06-26] MEDS: SOD FERRIC GLUC 125 MG in IV NS 0.9% 100 ML IV SCH (15:11)
[2023-06-26] MEDS: CHOLECALCIFEROL 1,000 UNIT TABLET (VIT D3) GT SCH (17:10)
[2023-06-26] MEDS: Z GUARD REMEDY 2 OZ OINT TP SCH (17:11)
[2023-06-26 19:56] LABS: HEMOGLOBIN 6.8 g/dL (13.5-17.5)
[2023-06-26] MEDS: SENNOSIDES 8.6 MG TABLET GT SCH (22:04)
[2023-06-27] VITALS (11 sets, daily range): BP systolic 96–126; BP diastolic 55–69; TEMP 97.5–98.6; O2SAT 97–100
[2023-06-27] MEDS: NEOMY SULF/BACITRA/POLYMYXIN B 3.5 GM TUBE LEFTEYE SCH ×6 (00:53→20:50)
[2023-06-27] MEDS: VALPROIC ACID 250 MG/5 ML UDC GT SCH ×3 (04:26→20:49)
[2023-06-27] MEDS: MEROPENEM 1 G in IV NS 0.9% 100 ML IV SCH ×3 (05:24→20:51)
[2023-06-27] MEDS: NEPRO 1,000 ML BOTTLE GT PRN (06:45)
[2023-06-27 06:47] LABS: CALCIUM, SERUM 8.7 mg/dL (8.5-10.1); CREATININE 0.9 mg/dL (0.6-1.3)
[2023-06-27 06:51] LABS: HEMOGLOBIN 9.3 g/dL (13.5-17.5)
[2023-06-27] MEDS ORDERED: SILVER NITRATE APPLICATOR 1 EA BOX TP SCH (07:30)
[2023-06-27] MEDS ORDERED: LIDOCAINE 1%-EPI 1:100,000 20 ML VIAL TP ONE (07:30)
[2023-06-27] MEDS: CHLORHEXIDINE GLUCONATE 15 ML UDC MM SCH ×2 (08:12→20:50)
[2023-06-27] MEDS: THIAMINE HCL 100 MG TABLET GT SCH (08:12)
[2023-06-27] MEDS: LACOSAMIDE ORAL SOLN 50 MG/5 ML UDC GT SCH ×2 (08:12→20:50)
[2023-06-27] MEDS: LEVETIRACETAM SOL (5 ML) 100 MG/ML UDC GT SCH ×2 (08:12→16:27)
[2023-06-27] MEDS: POLYETHYLENE GLYCOL 3350 17 GM POWD.PACK GT SCH (08:13)
[2023-06-27] MEDS: PANTOPRAZOLE 40 MG VIAL IV SCH ×2 (08:13→16:27)
[2023-06-27] MEDS: LEVOTHYROXINE SODIUM 50 MCG TABLET GT SCH (08:13)
[2023-06-27] MEDS: MIDODRINE HCL (5MG) 5 MG TABLET GT SCH ×3 (08:13→16:28)
[2023-06-27] MEDS: DOCUSATE SODIUM LIQ 100 MG/10 ML UDC NG SCH ×2 (08:13→16:26)
[2023-06-27] MEDS: MULTIVITAMINS,THERAGRAN 1 UDTAB TABLET GT SCH (08:14)
[2023-06-27] MEDS: AMIODARONE HCL 200 MG TABLET GT SCH ×3 (08:14→16:28)
[2023-06-27] MEDS: PROSOURCE / PROSTAT (PYXIS) 30 ML UDC GT SCH ×2 (08:15→16:26)
[2023-06-27] MEDS: THERAHONEY GEL 1.5 OZ TUBE TP SCH ×2 (08:16→08:17)
[2023-06-27] MEDS ORDERED: POTASSIUM CHLORIDE 20 MEQ POWDER PACKET GT ONE (09:00)
[2023-06-27 11:20] LABS: HEMOGLOBIN 8.6 g/dL (13.5-17.5)
[2023-06-27] MEDS: SOD FERRIC GLUC 125 MG in IV NS 0.9% 100 ML IV SCH (15:11)
[2023-06-27] MEDS: CHOLECALCIFEROL 1,000 UNIT TABLET (VIT D3) GT SCH (17:29)
[2023-06-27] MEDS: Z GUARD REMEDY 2 OZ OINT TP SCH (17:30)
[2023-06-27] MEDS: POTASSIUM CL. PREMIX PERIPHER. 50 ML IV SCH ×4 (17:57→21:30)
[2023-06-27 19:55] LABS: HEMOGLOBIN 9.2 g/dL (13.5-17.5)
[2023-06-27] MEDS: SENNOSIDES 8.6 MG TABLET GT SCH (22:17)
[2023-06-28] VITALS: BP 116/61; TEMP 98.4; O2SAT 100
[2023-06-28] MEDS: NEOMY SULF/BACITRA/POLYMYXIN B 3.5 GM TUBE LEFTEYE SCH ×6 (01:03→22:35)
[2023-06-28 03:23] LABS: BASOPHILS # (AUTO) 0.2 K/uL (0.0-0.2); BASOPHILS % (AUTO) 0.9 % (0.0-2.0); EOSINOPHILS # (AUTO) 0.1 K/uL (0.0-0.7); EOSINOPHILS % (AUTO) 0.4 % (0.0-6.0); HEMATOCRIT 29 % (39-51); HEMOGLOBIN 9.1 g/dL (13.5-17.5); LYMPHOCYTES # (AUTO) 1.8 K/uL (0.8-4.8); LYMPHOCYTES % (AUTO) 7.9 % (20.0-44.0); MEAN CORPUSCULAR HEMOGLOBIN 29 PG (26.0-33.0); MEAN CORPUSCULAR HGB CONC 32 g/dl (31.0-36.0); MEAN CORPUSCULAR VOLUME 91 fL (80-96); MONOCYTES # (AUTO) 4.3 K/uL (0.1-1.30); MONOCYTES % (AUTO) 18.8 % (2.0-12.0); NEUTROPHILS # (AUTO) 16.5 K/uL (1.8-8.9); PLATELET COUNT (AUTO) 262 K/uL (150-450); RED BLOOD CELL COUNT(AUTO) 3.13 MIL/uL (4.5-6.0); RED CELL DISTRIBUTION WIDTH 18.1 % (11.5-15.0); WHITE BLOOD COUNT (AUTO) 22.9 K/uL (4.3-11.0)
[2023-06-28 03:26] LABS: BILIRUBIN,TOTAL 0.4 mg/dL (0.2-1.0); CALCIUM, SERUM 9.1 mg/dL (8.5-10.1); CREATININE 0.9 mg/dL (0.6-1.3); MAGNESIUM 2.2 mg/dL (1.8-2.4); PHOSPHORUS 2.7 mg/dL (2.5-4.9); POTASSIUM 4.4 mmol/L (3.5-5.1); TOTAL PROTEIN, SERUM 6.7 g/dL (6.4-8.2)
[2023-06-28 03:41] LABS: ALBUMIN 1.1 g/dL (3.4-5.0)
[2023-06-28 04:00] VITALS: BP 119/66; TEMP 98.6; O2SAT 100
[2023-06-28] MEDS: VALPROIC ACID 250 MG/5 ML UDC GT SCH ×3 (04:08→22:34)
[2023-06-28] MEDS: MEROPENEM 1 G in IV NS 0.9% 100 ML IV SCH ×3 (04:08→22:32)
[2023-06-28] MEDS: NEPRO 1,000 ML BOTTLE GT PRN (05:36)
[2023-06-28 06:21] LABS: BAND % (MANUAL) 6 % (0.0-5.0); LYMPHOCYTES % (MANUAL) 7 % (16-48); MONOCYTES % (MANUAL) 12 % (0-11.0); MYELOCYTES % 6 % (0-0); NEUTROPHILS % (MANUAL) 69 (42-76); PLATELET ESTIMATE ADEQUATE
[2023-06-28] MEDS ORDERED: DIATR MEGLU/DIATRIZOATE SODIUM 30 ML BOTTLE (GASTROGRAPHIN) ONE (06:57)
[2023-06-28] MEDS: LEVOTHYROXINE SODIUM 50 MCG TABLET GT SCH (07:30)
[2023-06-28 08:00] VITALS: BP 75/47; TEMP 98.8; O2SAT 100
[2023-06-28] MEDS: PANTOPRAZOLE 40 MG VIAL IV SCH ×2 (10:29→16:05)
[2023-06-28] MEDS: CHLORHEXIDINE GLUCONATE 15 ML UDC MM SCH ×2 (10:29→22:32)
[2023-06-28] MEDS: THERAHONEY GEL 1.5 OZ TUBE TP SCH ×2 (10:30→12:13)
[2023-06-28] MEDS: LEVETIRACETAM SOL (5 ML) 100 MG/ML UDC GT SCH ×2 (10:57→16:05)
[2023-06-28] MEDS: POLYETHYLENE GLYCOL 3350 17 GM POWD.PACK GT SCH (10:57)
[2023-06-28] MEDS: DOCUSATE SODIUM LIQ 100 MG/10 ML UDC NG SCH ×2 (10:57→16:05)
[2023-06-28] MEDS: AMIODARONE HCL 200 MG TABLET GT SCH ×3 (10:58→16:07)
[2023-06-28] MEDS: MULTIVITAMINS,THERAGRAN 1 UDTAB TABLET GT SCH (10:58)
[2023-06-28] MEDS: MIDODRINE HCL (5MG) 5 MG TABLET GT SCH ×3 (10:58→16:07)
[2023-06-28] MEDS: THIAMINE HCL 100 MG TABLET GT SCH (10:58)
[2023-06-28] MEDS: LACOSAMIDE ORAL SOLN 50 MG/5 ML UDC GT SCH ×2 (11:00→22:43)
[2023-06-28] MEDS: PROSOURCE / PROSTAT (PYXIS) 30 ML UDC GT SCH ×2 (11:02→16:06)
[2023-06-28 12:00] VITALS: BP 124/59; TEMP 98.8; O2SAT 100
[2023-06-28 12:11] LABS: HEMOGLOBIN 8.2 g/dL (13.5-17.5)
[2023-06-28 16:00] VITALS: BP 120/60; TEMP 97.3; O2SAT 100
[2023-06-28] MEDS: CHOLECALCIFEROL 1,000 UNIT TABLET (VIT D3) GT SCH (17:33)
[2023-06-28] MEDS: Z GUARD REMEDY 2 OZ OINT TP SCH (17:34)
[2023-06-28 19:32] LABS: HEMOGLOBIN 8.6 g/dL (13.5-17.5)
[2023-06-28 20:00] VITALS: BP 117/68; TEMP 97.3; O2SAT 100
[2023-06-28] MEDS: SENNOSIDES 8.6 MG TABLET GT SCH (22:32)
[2023-06-29] VITALS: BP 74/68; TEMP 98.6; O2SAT 100
[2023-06-29] MEDS: NEOMY SULF/BACITRA/POLYMYXIN B 3.5 GM TUBE LEFTEYE SCH ×6 (01:00→21:13)
[2023-06-29 03:25] LABS: HEMOGLOBIN 9.2 g/dL (13.5-17.5)
[2023-06-29 04:00] VITALS: BP 105/64; TEMP 98.8; O2SAT 98
[2023-06-29] MEDS: VALPROIC ACID 250 MG/5 ML UDC GT SCH ×3 (05:00→21:13)
[2023-06-29] MEDS: MEROPENEM 1 G in IV NS 0.9% 100 ML IV SCH ×3 (05:00→21:13)
[2023-06-29 06:48] LABS: BASOPHILS # (AUTO) 0.1 K/uL (0.0-0.2); BASOPHILS % (AUTO) 0.5 % (0.0-2.0); CARBON DIOXIDE 24 mmol/L (21-32); CHLORIDE 110 mmol/L (98-107); CREATININE 0.9 mg/dL (0.6-1.3); EOSINOPHILS # (AUTO) 0.2 K/uL (0.0-0.7); GLUCOSE 119 mg/dL (74-106); HEMATOCRIT 27 % (39-51); HEMOGLOBIN 8.4 g/dL (13.5-17.5); LYMPHOCYTES # (AUTO) 1.9 K/uL (0.8-4.8); LYMPHOCYTES % (AUTO) 11.2 % (20.0-44.0); MAGNESIUM 2.1 mg/dL (1.8-2.4); MEAN CORPUSCULAR HEMOGLOBIN 29 PG (26.0-33.0); MEAN CORPUSCULAR HGB CONC 32 g/dl (31.0-36.0); MEAN CORPUSCULAR VOLUME 93 fL (80-96); MONOCYTES # (AUTO) 2.7 K/uL (0.1-1.30); NEUTROPHILS % (AUTO) 71.3 % (43.0-81.0); PHOSPHORUS 3.2 mg/dL (2.5-4.9); PLATELET COUNT (AUTO) 319 K/uL (150-450); RED BLOOD CELL COUNT(AUTO) 2.86 MIL/uL (4.5-6.0); RED CELL DISTRIBUTION WIDTH 18.4 % (11.5-15.0); SODIUM SERUM 142 mmol/L (136-145); UREA NITROGEN, BLOOD 59 mg/dL (7-18); WHITE BLOOD COUNT (AUTO) 16.8 K/uL (4.3-11.0)
[2023-06-29 07:05] LABS: THYROID STIMULATING HORMONE 10.643 uIU/mL (0.358-3.74)
[2023-06-29 08:00] VITALS: BP 115/65; TEMP 97.9; O2SAT 100
[2023-06-29] MEDS: LEVOTHYROXINE SODIUM 50 MCG TABLET GT SCH (08:11)
[2023-06-29] MEDS: CHLORHEXIDINE GLUCONATE 15 ML UDC MM SCH ×2 (09:07→21:13)
[2023-06-29] MEDS: LEVETIRACETAM SOL (5 ML) 100 MG/ML UDC GT SCH ×2 (09:07→16:39)
[2023-06-29] MEDS: DOCUSATE SODIUM LIQ 100 MG/10 ML UDC NG SCH ×2 (09:07→16:38)
[2023-06-29] MEDS: POLYETHYLENE GLYCOL 3350 17 GM POWD.PACK GT SCH (09:08)
[2023-06-29] MEDS: AMIODARONE HCL 200 MG TABLET GT SCH ×3 (09:08→16:38)
[2023-06-29] MEDS: MULTIVITAMINS,THERAGRAN 1 UDTAB TABLET GT SCH (09:09)
[2023-06-29] MEDS: THIAMINE HCL 100 MG TABLET GT SCH (09:09)
[2023-06-29] MEDS: MIDODRINE HCL (5MG) 5 MG TABLET GT SCH ×3 (09:09→16:39)
[2023-06-29] MEDS: PANTOPRAZOLE 40 MG VIAL IV SCH ×2 (09:10→16:38)
[2023-06-29] MEDS: PROSOURCE / PROSTAT (PYXIS) 30 ML UDC GT SCH ×2 (09:13→16:45)
[2023-06-29] MEDS: LACOSAMIDE ORAL SOLN 50 MG/5 ML UDC GT SCH ×2 (09:13→21:25)
[2023-06-29] MEDS: THERAHONEY GEL 1.5 OZ TUBE TP SCH ×2 (09:29→09:30)
[2023-06-29 11:25] LABS: HEMOGLOBIN 8.2 g/dL (13.5-17.5)
[2023-06-29 11:41] LABS: BAND % (MANUAL) 3 % (0.0-5.0); LYMPHOCYTES % (MANUAL) 10 % (16-48); MONOCYTES % (MANUAL) 17 % (0-11.0); MYELOCYTES % 5 % (0-0); NEUTROPHILS % (MANUAL) 65 (42-76); PLATELET ESTIMATE ADEQUATE
[2023-06-29 12:40] VITALS: BP 109/66; TEMP 97.7; O2SAT 100
[2023-06-29] MEDS: CHOLECALCIFEROL 1,000 UNIT TABLET (VIT D3) GT SCH (17:00)
[2023-06-29] MEDS: Z GUARD REMEDY 2 OZ OINT TP SCH (17:27)
[2023-06-29 17:35] VITALS: BP 116/65; TEMP 97.5; O2SAT 100
[2023-06-29 19:55] LABS: HEMOGLOBIN 8.3 g/dL (13.5-17.5)
[2023-06-29 20:00] VITALS: BP 123/64; TEMP 98.2; O2SAT 94
[2023-06-29] MEDS: SENNOSIDES 8.6 MG TABLET GT SCH (21:13)
[2023-06-29] MEDS: NEPRO 1,000 ML BOTTLE GT PRN (22:21)
[2023-06-30] VITALS: BP 108/62; TEMP 98; O2SAT 95
[2023-06-30] MEDS: NEOMY SULF/BACITRA/POLYMYXIN B 3.5 GM TUBE LEFTEYE SCH ×6 (01:04→20:58)
[2023-06-30 04:00] VITALS: BP 107/60; TEMP 98; O2SAT 100
[2023-06-30 04:20] LABS: HEMOGLOBIN 8.7 g/dL (13.5-17.5)
[2023-06-30] MEDS: MEROPENEM 1 G in IV NS 0.9% 100 ML IV SCH ×3 (04:35→20:42)
[2023-06-30] MEDS: VALPROIC ACID 250 MG/5 ML UDC GT SCH ×3 (04:35→20:23)
[2023-06-30 07:13] LABS: BASOPHILS # (AUTO) 0.1 K/uL (0.0-0.2); BASOPHILS % (AUTO) 0.4 % (0.0-2.0); EOSINOPHILS # (AUTO) 0.1 K/uL (0.0-0.7); EOSINOPHILS % (AUTO) 0.6 % (0.0-6.0); HEMATOCRIT 27 % (39-51); HEMOGLOBIN 8.5 g/dL (13.5-17.5); LYMPHOCYTES # (AUTO) 1.9 K/uL (0.8-4.8); LYMPHOCYTES % (AUTO) 9.9 % (20.0-44.0); MEAN CORPUSCULAR HEMOGLOBIN 30 PG (26.0-33.0); MEAN CORPUSCULAR HGB CONC 32 g/dl (31.0-36.0); MEAN CORPUSCULAR VOLUME 94 fL (80-96); MONOCYTES # (AUTO) 2.4 K/uL (0.1-1.30); MONOCYTES % (AUTO) 12.1 % (2.0-12.0); PLATELET COUNT (AUTO) 347 K/uL (150-450); RED BLOOD CELL COUNT(AUTO) 2.85 MIL/uL (4.5-6.0); RED CELL DISTRIBUTION WIDTH 19.5 % (11.5-15.0); WHITE BLOOD COUNT (AUTO) 19.5 K/uL (4.3-11.0)
[2023-06-30 07:34] LABS: CALCIUM, SERUM 9.1 mg/dL (8.5-10.1); CARBON DIOXIDE 22 mmol/L (21-32); CHLORIDE 112 mmol/L (98-107); CREATININE 0.9 mg/dL (0.6-1.3); GLUCOSE 117 mg/dL (74-106); MAGNESIUM 1.9 mg/dL (1.8-2.4); PHOSPHORUS 3.4 mg/dL (2.5-4.9); POTASSIUM 3.9 mmol/L (3.5-5.1); SODIUM SERUM 145 mmol/L (136-145); UREA NITROGEN, BLOOD 51 mg/dL (7-18)
[2023-06-30 08:00] VITALS: BP 98/50; TEMP 97.7; O2SAT 100
[2023-06-30] MEDS: POLYETHYLENE GLYCOL 3350 17 GM POWD.PACK GT SCH (08:42)
[2023-06-30] MEDS: PANTOPRAZOLE 40 MG VIAL IV SCH ×2 (08:42→18:01)
[2023-06-30] MEDS: LACOSAMIDE ORAL SOLN 50 MG/5 ML UDC GT SCH ×2 (08:43→20:28)
[2023-06-30] MEDS: MIDODRINE HCL (5MG) 5 MG TABLET GT SCH ×3 (08:45→18:04)
[2023-06-30] MEDS: AMIODARONE HCL 200 MG TABLET GT SCH ×3 (08:47→18:05)
[2023-06-30] MEDS: LEVOTHYROXINE SODIUM 50 MCG TABLET GT SCH (08:47)
[2023-06-30] MEDS: LEVETIRACETAM SOL (5 ML) 100 MG/ML UDC GT SCH ×2 (08:48→18:01)
[2023-06-30] MEDS: THIAMINE HCL 100 MG TABLET GT SCH (08:48)
[2023-06-30] MEDS: DOCUSATE SODIUM LIQ 100 MG/10 ML UDC NG SCH ×2 (08:48→18:04)
[2023-06-30] MEDS: MULTIVITAMINS,THERAGRAN 1 UDTAB TABLET GT SCH (08:48)
[2023-06-30] MEDS: PROSOURCE / PROSTAT (PYXIS) 30 ML UDC GT SCH ×2 (08:49→18:04)
[2023-06-30] MEDS: THERAHONEY GEL 1.5 OZ TUBE TP SCH ×2 (08:50)
[2023-06-30] MEDS: CHLORHEXIDINE GLUCONATE 15 ML UDC MM SCH ×2 (08:52→20:22)
[2023-06-30 09:58] LABS: BAND % (MANUAL) 3 % (0.0-5.0); EOSINOPHILS % (MANUAL) 1 % (0-4); LYMPHOCYTES % (MANUAL) 9 % (16-48); MONOCYTES % (MANUAL) 13 % (0-11.0); NEUTROPHILS % (MANUAL) 74 (42-76)
[2023-06-30 09:59] LABS: ANISOCYTOSIS 2+; PLATELET ESTIMATE ADEQUATE
[2023-06-30 12:00] VITALS: BP 112/58; TEMP 98.4; O2SAT 100
[2023-06-30 12:36] LABS: HEMOGLOBIN 8.7 g/dL (13.5-17.5)
[2023-06-30 16:00] VITALS: BP 98/60; TEMP 98.6; O2SAT 100
[2023-06-30] MEDS: CHOLECALCIFEROL 1,000 UNIT TABLET (VIT D3) GT SCH (18:04)
[2023-06-30] MEDS: Z GUARD REMEDY 2 OZ OINT TP SCH (18:05)
[2023-06-30 19:32] LABS: HEMOGLOBIN 8.6 g/dL (13.5-17.5)
[2023-06-30 20:00] VITALS: BP 140/86; TEMP 98.2; O2SAT 100
[2023-06-30] MEDS: SENNOSIDES 8.6 MG TABLET GT SCH (21:10)
[2023-07-01] VITALS: BP 139/71; TEMP 97.5; O2SAT 98
[2023-07-01] MEDS: NEOMY SULF/BACITRA/POLYMYXIN B 3.5 GM TUBE LEFTEYE SCH ×6 (00:20→21:52)
[2023-07-01 04:00] VITALS: BP 128/82; TEMP 98.6; O2SAT 97
[2023-07-01] MEDS: MEROPENEM 1 G in IV NS 0.9% 100 ML IV SCH ×3 (05:15→21:49)
[2023-07-01] MEDS: VALPROIC ACID 250 MG/5 ML UDC GT SCH ×3 (05:15→21:50)
[2023-07-01 08:00] VITALS: BP 115/68; TEMP 98.1; O2SAT 100
[2023-07-01] MEDS: THIAMINE HCL 100 MG TABLET GT SCH (09:26)
[2023-07-01] MEDS: DOCUSATE SODIUM LIQ 100 MG/10 ML UDC NG SCH ×2 (09:26→17:43)
[2023-07-01] MEDS: POLYETHYLENE GLYCOL 3350 17 GM POWD.PACK GT SCH (09:26)
[2023-07-01] MEDS: MIDODRINE HCL (5MG) 5 MG TABLET GT SCH ×3 (09:28→17:43)
[2023-07-01] MEDS: AMIODARONE HCL 200 MG TABLET GT SCH ×3 (09:29→17:44)
[2023-07-01] MEDS: MULTIVITAMINS,THERAGRAN 1 UDTAB TABLET GT SCH (09:29)
[2023-07-01] MEDS: PANTOPRAZOLE 40 MG VIAL IV SCH ×2 (09:29→17:43)
[2023-07-01] MEDS: LEVOTHYROXINE SODIUM 75 MCG TABLET GT SCH (09:29)
[2023-07-01] MEDS: LEVETIRACETAM SOL (5 ML) 100 MG/ML UDC GT SCH ×2 (09:33→17:43)
[2023-07-01] MEDS: LACOSAMIDE ORAL SOLN 50 MG/5 ML UDC GT SCH ×2 (09:33→21:50)
[2023-07-01] MEDS: PROSOURCE / PROSTAT (PYXIS) 30 ML UDC GT SCH ×2 (09:33→17:54)
[2023-07-01] MEDS: CHLORHEXIDINE GLUCONATE 15 ML UDC MM SCH ×2 (09:33→21:50)
[2023-07-01] MEDS: THERAHONEY GEL 1.5 OZ TUBE TP SCH ×2 (09:34→09:35)
[2023-07-01 12:00] VITALS: BP 119/67; TEMP 98.2; O2SAT 100
[2023-07-01] MEDS: NEPRO 1,000 ML BOTTLE GT PRN (14:20)
[2023-07-01 15:04] LABS: BASOPHILS # (AUTO) 0.2 K/uL (0.0-0.2); EOSINOPHILS # (AUTO) 0.3 K/uL (0.0-0.7); EOSINOPHILS % (AUTO) 1.3 % (0.0-6.0); HEMATOCRIT 26 % (39-51); HEMOGLOBIN 7.9 g/dL (13.5-17.5); LYMPHOCYTES # (AUTO) 3.3 K/uL (0.8-4.8); LYMPHOCYTES % (AUTO) 14.2 % (20.0-44.0); MEAN CORPUSCULAR HEMOGLOBIN 30 PG (26.0-33.0); MEAN CORPUSCULAR HGB CONC 31 g/dl (31.0-36.0); MEAN CORPUSCULAR VOLUME 95 fL (80-96); MONOCYTES # (AUTO) 2.3 K/uL (0.1-1.30); NEUTROPHILS # (AUTO) 17.2 K/uL (1.8-8.9); NEUTROPHILS % (AUTO) 73.5 % (43.0-81.0); RED BLOOD CELL COUNT(AUTO) 2.69 MIL/uL (4.5-6.0); RED CELL DISTRIBUTION WIDTH 19.5 % (11.5-15.0); WHITE BLOOD COUNT (AUTO) 23.4 K/uL (4.3-11.0)
[2023-07-01 15:19] LABS: BILIRUBIN,TOTAL 0.3 mg/dL (0.2-1.0); MAGNESIUM 1.8 mg/dL (1.8-2.4); PHOSPHORUS 2.9 mg/dL (2.5-4.9); POTASSIUM 4.4 mmol/L (3.5-5.1); TOTAL PROTEIN, SERUM 6.2 g/dL (6.4-8.2)
[2023-07-01 15:29] LABS: ALBUMIN 1.2 g/dL (3.4-5.0)
[2023-07-01 16:00] VITALS: BP 116/57; TEMP 99.7; O2SAT 100
[2023-07-01 16:07] LABS: PLATELET COUNT (AUTO) 340 K/uL (150-450)
[2023-07-01] MEDS: CHOLECALCIFEROL 1,000 UNIT TABLET (VIT D3) GT SCH (17:43)
[2023-07-01] MEDS: Z GUARD REMEDY 2 OZ OINT TP SCH (17:55)
[2023-07-01] MEDS: SENNOSIDES 8.6 MG TABLET GT SCH (21:50)
[2023-07-02] VITALS: BP 120/61; TEMP 99.5; O2SAT 96
[2023-07-02] MEDS: NEOMY SULF/BACITRA/POLYMYXIN B 3.5 GM TUBE LEFTEYE SCH ×6 (01:05→22:10)
[2023-07-02 04:00] VITALS: BP 130/65; TEMP 99.1; O2SAT 99
[2023-07-02] MEDS: VALPROIC ACID 250 MG/5 ML UDC GT SCH ×3 (04:35→21:24)
[2023-07-02] MEDS: MEROPENEM 1 G in IV NS 0.9% 100 ML IV SCH ×3 (04:37→21:24)
[2023-07-02 06:48] LABS: BASOPHILS # (AUTO) 0.1 K/uL (0.0-0.2); BASOPHILS % (AUTO) 0.2 % (0.0-2.0); EOSINOPHILS # (AUTO) 0.2 K/uL (0.0-0.7); EOSINOPHILS % (AUTO) 0.7 % (0.0-6.0); HEMATOCRIT 27 % (39-51); HEMOGLOBIN 8.3 g/dL (13.5-17.5); MEAN CORPUSCULAR HEMOGLOBIN 29 PG (26.0-33.0); MEAN CORPUSCULAR HGB CONC 31 g/dl (31.0-36.0); MEAN CORPUSCULAR VOLUME 95 fL (80-96); MONOCYTES # (AUTO) 1.8 K/uL (0.1-1.30); MONOCYTES % (AUTO) 7.1 % (2.0-12.0); NEUTROPHILS # (AUTO) 20.1 K/uL (1.8-8.9); PLATELET COUNT (AUTO) 358 K/uL (150-450); RED BLOOD CELL COUNT(AUTO) 2.83 MIL/uL (4.5-6.0); RED CELL DISTRIBUTION WIDTH 19.7 % (11.5-15.0); WHITE BLOOD COUNT (AUTO) 25.2 K/uL (4.3-11.0)
[2023-07-02 07:19] LABS: CALCIUM, SERUM 9.2 mg/dL (8.5-10.1); MAGNESIUM 1.9 mg/dL (1.8-2.4); PHOSPHORUS 2.3 mg/dL (2.5-4.9); POTASSIUM 4.1 mmol/L (3.5-5.1)
[2023-07-02 07:51] LABS: ANISOCYTOSIS 1+; LYMPHOCYTES % (MANUAL) 7 % (16-48); MONOCYTES % (MANUAL) 5 % (0-11.0); NEUTROPHILS % (MANUAL) 88 (42-76); PLATELET ESTIMATE ADEQUATE
[2023-07-02 08:00] VITALS: BP 126/54; TEMP 98.7; O2SAT 100
[2023-07-02] MEDS: LEVOTHYROXINE SODIUM 75 MCG TABLET GT SCH (08:28)
[2023-07-02] MEDS: PROSOURCE / PROSTAT (PYXIS) 30 ML UDC GT SCH ×2 (08:47→17:41)
[2023-07-02] MEDS: POLYETHYLENE GLYCOL 3350 17 GM POWD.PACK GT SCH (08:47)
[2023-07-02] MEDS: DOCUSATE SODIUM LIQ 100 MG/10 ML UDC NG SCH ×2 (08:47→17:41)
[2023-07-02] MEDS: MIDODRINE HCL (5MG) 5 MG TABLET GT SCH ×4 (08:48→17:41)
[2023-07-02] MEDS: MULTIVITAMINS,THERAGRAN 1 UDTAB TABLET GT SCH (08:48)
[2023-07-02] MEDS: PANTOPRAZOLE 40 MG VIAL IV SCH ×3 (08:48→17:41)
[2023-07-02] MEDS: THIAMINE HCL 100 MG TABLET GT SCH (08:48)
[2023-07-02] MEDS: LACOSAMIDE ORAL SOLN 50 MG/5 ML UDC GT SCH ×2 (08:48→21:24)
[2023-07-02] MEDS: CHLORHEXIDINE GLUCONATE 15 ML UDC MM SCH ×2 (08:48→21:24)
[2023-07-02] MEDS: AMIODARONE HCL 200 MG TABLET GT SCH ×3 (08:49→17:42)
[2023-07-02] MEDS: LEVETIRACETAM SOL (5 ML) 100 MG/ML UDC GT SCH ×2 (08:50→17:41)
[2023-07-02] MEDS: THERAHONEY GEL 1.5 OZ TUBE TP SCH ×2 (09:06)
[2023-07-02 12:00] VITALS: BP 138/69; TEMP 98.5; O2SAT 98
[2023-07-02] MEDS ORDERED: NEUTRA PHOS 1 POWD.PACKET NG ONE (12:00)
[2023-07-02 16:00] VITALS: BP 107/59; TEMP 97.9; O2SAT 99
[2023-07-02] MEDS: Z GUARD REMEDY 2 OZ OINT TP SCH (17:38)
[2023-07-02] MEDS: CHOLECALCIFEROL 1,000 UNIT TABLET (VIT D3) GT SCH (17:41)
[2023-07-02] MEDS: NEPRO 1,000 ML BOTTLE GT PRN (19:41)
[2023-07-02 20:00] VITALS: BP 116/60; TEMP 99; O2SAT 97
[2023-07-02] MEDS: SENNOSIDES 8.6 MG TABLET GT SCH (21:26)
[2023-07-03] VITALS: BP 105/59; TEMP 97.9; O2SAT 100
[2023-07-03] MEDS: NEOMY SULF/BACITRA/POLYMYXIN B 3.5 GM TUBE LEFTEYE SCH ×6 (01:43→21:44)
[2023-07-03 04:00] VITALS: BP 113/65; TEMP 99.1; O2SAT 100
[2023-07-03] MEDS: MEROPENEM 1 G in IV NS 0.9% 100 ML IV SCH ×3 (04:35→21:46)
[2023-07-03] MEDS: VALPROIC ACID 250 MG/5 ML UDC GT SCH ×3 (04:42→21:39)
[2023-07-03 07:45] LABS: CALCIUM, SERUM 9.2 mg/dL (8.5-10.1); CARBON DIOXIDE 25 mmol/L (21-32); CHLORIDE 115 mmol/L (98-107); GLUCOSE 109 mg/dL (74-106); PHOSPHORUS 3.2 mg/dL (2.5-4.9); POTASSIUM 4.6 mmol/L (3.5-5.1); SODIUM SERUM 148 mmol/L (136-145); UREA NITROGEN, BLOOD 48 mg/dL (7-18)
[2023-07-03 08:00] VITALS: BP 118/62; TEMP 99; O2SAT 100
[2023-07-03] MEDS: THERAHONEY GEL 1.5 OZ TUBE TP SCH ×2 (09:04)
[2023-07-03] MEDS: PANTOPRAZOLE 40 MG VIAL IV SCH ×2 (09:11→17:06)
[2023-07-03] MEDS: DOCUSATE SODIUM LIQ 100 MG/10 ML UDC NG SCH ×2 (09:14→17:05)
[2023-07-03] MEDS: THIAMINE HCL 100 MG TABLET GT SCH (09:14)
[2023-07-03] MEDS: POLYETHYLENE GLYCOL 3350 17 GM POWD.PACK GT SCH (09:14)
[2023-07-03] MEDS: CHLORHEXIDINE GLUCONATE 15 ML UDC MM SCH ×2 (09:14→21:39)
[2023-07-03] MEDS: LACOSAMIDE ORAL SOLN 50 MG/5 ML UDC GT SCH ×2 (09:14→21:44)
[2023-07-03] MEDS: MULTIVITAMINS,THERAGRAN 1 UDTAB TABLET GT SCH (09:14)
[2023-07-03] MEDS: LEVETIRACETAM SOL (5 ML) 100 MG/ML UDC GT SCH ×2 (09:14→17:05)
[2023-07-03] MEDS: AMIODARONE HCL 200 MG TABLET GT SCH ×3 (09:15→17:05)
[2023-07-03] MEDS: MIDODRINE HCL (5MG) 5 MG TABLET GT SCH ×3 (09:15→17:06)
[2023-07-03] MEDS: PROSOURCE / PROSTAT (PYXIS) 30 ML UDC GT SCH ×2 (09:16→17:06)
[2023-07-03] MEDS: LEVOTHYROXINE SODIUM 75 MCG TABLET GT SCH (09:16)
[2023-07-03 12:00] VITALS: BP 97/61; TEMP 99; O2SAT 100
[2023-07-03 16:00] VITALS: BP 104/52; TEMP 98.9; O2SAT 99
[2023-07-03] MEDS: CHOLECALCIFEROL 1,000 UNIT TABLET (VIT D3) GT SCH (17:05)
[2023-07-03] MEDS: Z GUARD REMEDY 2 OZ OINT TP SCH (17:06)
[2023-07-03 20:00] VITALS: BP 118/63; TEMP 99; O2SAT 100
[2023-07-03] MEDS: SENNOSIDES 8.6 MG TABLET GT SCH (21:48)
[2023-07-03] MEDS: NEPRO 1,000 ML BOTTLE GT PRN (22:57)
[2023-07-04] VITALS (7 sets, daily range): BP systolic 105–158; BP diastolic 60–67; TEMP 98.1–99.3; O2SAT 97–100
[2023-07-04] MEDS: NEOMY SULF/BACITRA/POLYMYXIN B 3.5 GM TUBE LEFTEYE SCH ×6 (01:08→21:48)
[2023-07-04] MEDS: VALPROIC ACID 250 MG/5 ML UDC GT SCH ×3 (05:43→21:34)
[2023-07-04] MEDS: MEROPENEM 1 G in IV NS 0.9% 100 ML IV SCH ×3 (05:43→21:35)
[2023-07-04] MEDS: LEVOTHYROXINE SODIUM 75 MCG TABLET GT SCH (07:59)
[2023-07-04] MEDS: AMIODARONE HCL 200 MG TABLET GT SCH ×3 (09:00→17:08)
[2023-07-04] MEDS: LEVETIRACETAM SOL (5 ML) 100 MG/ML UDC GT SCH ×2 (09:00→17:09)
[2023-07-04] MEDS: PROSOURCE / PROSTAT (PYXIS) 30 ML UDC GT SCH ×2 (09:01→17:11)
[2023-07-04] MEDS: MULTIVITAMINS,THERAGRAN 1 UDTAB TABLET GT SCH (09:01)
[2023-07-04] MEDS: POLYETHYLENE GLYCOL 3350 17 GM POWD.PACK GT SCH (09:01)
[2023-07-04] MEDS: THIAMINE HCL 100 MG TABLET GT SCH (09:02)
[2023-07-04] MEDS: LACOSAMIDE ORAL SOLN 50 MG/5 ML UDC GT SCH ×2 (09:02→21:34)
[2023-07-04] MEDS: PANTOPRAZOLE 40 MG VIAL IV SCH ×2 (09:03→17:07)
[2023-07-04] MEDS: DOCUSATE SODIUM LIQ 100 MG/10 ML UDC NG SCH ×2 (09:03→17:10)
[2023-07-04] MEDS: CHLORHEXIDINE GLUCONATE 15 ML UDC MM SCH ×2 (09:03→21:35)
[2023-07-04] MEDS: MIDODRINE HCL (5MG) 5 MG TABLET GT SCH ×3 (09:04→17:12)
[2023-07-04] MEDS: THERAHONEY GEL 1.5 OZ TUBE TP SCH ×2 (09:07)
[2023-07-04 11:12] LABS: BASOPHILS # (AUTO) 0.1 K/uL (0.0-0.2); BASOPHILS % (AUTO) 0.3 % (0.0-2.0); EOSINOPHILS # (AUTO) 0.2 K/uL (0.0-0.7); EOSINOPHILS % (AUTO) 1.2 % (0.0-6.0); HEMATOCRIT 28 % (39-51); HEMOGLOBIN 8.5 g/dL (13.5-17.5); LYMPHOCYTES # (AUTO) 2.1 K/uL (0.8-4.8); LYMPHOCYTES % (AUTO) 11.5 % (20.0-44.0); MEAN CORPUSCULAR HEMOGLOBIN 29 PG (26.0-33.0); MEAN CORPUSCULAR HGB CONC 31 g/dl (31.0-36.0); MEAN CORPUSCULAR VOLUME 95 fL (80-96); MONOCYTES # (AUTO) 1.4 K/uL (0.1-1.30); MONOCYTES % (AUTO) 7.9 % (2.0-12.0); NEUTROPHILS # (AUTO) 14.2 K/uL (1.8-8.9); NEUTROPHILS % (AUTO) 79.1 % (43.0-81.0); PLATELET COUNT (AUTO) 319 K/uL (150-450); RED BLOOD CELL COUNT(AUTO) 2.91 MIL/uL (4.5-6.0); RED CELL DISTRIBUTION WIDTH 20.1 % (11.5-15.0)
[2023-07-04] MEDS: CHOLECALCIFEROL 1,000 UNIT TABLET (VIT D3) GT SCH (17:10)
[2023-07-04] MEDS: Z GUARD REMEDY 2 OZ OINT TP SCH (17:43)
[2023-07-04] MEDS: SENNOSIDES 8.6 MG TABLET GT SCH (21:35)
[2023-07-05] VITALS: BP 124/65; TEMP 98.6; O2SAT 100
[2023-07-05 04:00] VITALS: BP 129/59; TEMP 98.2; O2SAT 100
[2023-07-05] MEDS: NEOMY SULF/BACITRA/POLYMYXIN B 3.5 GM TUBE LEFTEYE SCH ×4 (05:47→12:25)
[2023-07-05] MEDS: MEROPENEM 1 G in IV NS 0.9% 100 ML IV SCH ×3 (05:48→22:35)
[2023-07-05] MEDS: VALPROIC ACID 250 MG/5 ML UDC GT SCH ×3 (05:52→22:30)
[2023-07-05 06:56] LABS: BASOPHILS # (AUTO) 0.1 K/uL (0.0-0.2); BASOPHILS % (AUTO) 0.4 % (0.0-2.0); EOSINOPHILS # (AUTO) 0.3 K/uL (0.0-0.7); EOSINOPHILS % (AUTO) 1.8 % (0.0-6.0); HEMATOCRIT 26 % (39-51); LYMPHOCYTES # (AUTO) 2.2 K/uL (0.8-4.8); LYMPHOCYTES % (AUTO) 14.2 % (20.0-44.0); MEAN CORPUSCULAR HEMOGLOBIN 29 PG (26.0-33.0); MEAN CORPUSCULAR HGB CONC 31 g/dl (31.0-36.0); MEAN CORPUSCULAR VOLUME 95 fL (80-96); MONOCYTES # (AUTO) 1.2 K/uL (0.1-1.30); MONOCYTES % (AUTO) 7.9 % (2.0-12.0); NEUTROPHILS # (AUTO) 11.7 K/uL (1.8-8.9); NEUTROPHILS % (AUTO) 75.7 % (43.0-81.0); PLATELET COUNT (AUTO) 297 K/uL (150-450); RED BLOOD CELL COUNT(AUTO) 2.74 MIL/uL (4.5-6.0); RED CELL DISTRIBUTION WIDTH 19.8 % (11.5-15.0); WHITE BLOOD COUNT (AUTO) 15.4 K/uL (4.3-11.0)
[2023-07-05 07:04] LABS: BILIRUBIN,TOTAL 0.4 mg/dL (0.2-1.0); CALCIUM, SERUM 8.9 mg/dL (8.5-10.1); CREATININE 0.9 mg/dL (0.6-1.3); MAGNESIUM 2.5 mg/dL (1.8-2.4); PHOSPHORUS 2.8 mg/dL (2.5-4.9); POTASSIUM 4.7 mmol/L (3.5-5.1); TOTAL PROTEIN, SERUM 6.9 g/dL (6.4-8.2)
[2023-07-05 07:30] LABS: ALBUMIN 1.2 g/dL (3.4-5.0)
[2023-07-05 08:00] VITALS: BP 130/67; TEMP 98.4; O2SAT 100
[2023-07-05] MEDS: LEVETIRACETAM SOL (5 ML) 100 MG/ML UDC GT SCH ×2 (08:29→17:12)
[2023-07-05] MEDS: PANTOPRAZOLE 40 MG VIAL IV SCH ×2 (08:29→17:14)
[2023-07-05] MEDS: POLYETHYLENE GLYCOL 3350 17 GM POWD.PACK GT SCH (08:29)
[2023-07-05] MEDS: DOCUSATE SODIUM LIQ 100 MG/10 ML UDC NG SCH ×2 (08:29→17:14)
[2023-07-05] MEDS: CHLORHEXIDINE GLUCONATE 15 ML UDC MM SCH ×2 (08:30→22:30)
[2023-07-05] MEDS: THIAMINE HCL 100 MG TABLET GT SCH (08:31)
[2023-07-05] MEDS: MIDODRINE HCL (5MG) 5 MG TABLET GT SCH ×3 (08:31→17:14)
[2023-07-05] MEDS: LEVOTHYROXINE SODIUM 75 MCG TABLET GT SCH (08:31)
[2023-07-05] MEDS: AMIODARONE HCL 200 MG TABLET GT SCH ×3 (08:31→17:13)
[2023-07-05] MEDS: MULTIVITAMINS,THERAGRAN 1 UDTAB TABLET GT SCH (08:31)
[2023-07-05] MEDS: THERAHONEY GEL 1.5 OZ TUBE TP SCH ×2 (08:32→08:34)
[2023-07-05] MEDS: PROSOURCE / PROSTAT (PYXIS) 30 ML UDC GT SCH ×2 (08:32→17:13)
[2023-07-05] MEDS: LACOSAMIDE ORAL SOLN 50 MG/5 ML UDC GT SCH ×2 (08:38→22:35)
[2023-07-05 12:00] VITALS: BP 134/68; TEMP 97.9; O2SAT 100
[2023-07-05 16:00] VITALS: BP 125/70; TEMP 97.8; O2SAT 100
[2023-07-05 16:38] LABS: BASOPHILS # (AUTO) 0.1 K/uL (0.0-0.2); BASOPHILS % (AUTO) 0.4 % (0.0-2.0); EOSINOPHILS # (AUTO) 0.3 K/uL (0.0-0.7); EOSINOPHILS % (AUTO) 1.8 % (0.0-6.0); HEMATOCRIT 25 % (39-51); HEMOGLOBIN 8.1 g/dL (13.5-17.5); LYMPHOCYTES # (AUTO) 1.5 K/uL (0.8-4.8); LYMPHOCYTES % (AUTO) 10.3 % (20.0-44.0); MEAN CORPUSCULAR HEMOGLOBIN 29 PG (26.0-33.0); MEAN CORPUSCULAR HGB CONC 32 g/dl (31.0-36.0); MEAN CORPUSCULAR VOLUME 92 fL (80-96); MONOCYTES # (AUTO) 1.1 K/uL (0.1-1.30); MONOCYTES % (AUTO) 7.3 % (2.0-12.0); NEUTROPHILS # (AUTO) 11.9 K/uL (1.8-8.9); NEUTROPHILS % (AUTO) 80.2 % (43.0-81.0); PLATELET COUNT (AUTO) 266 K/uL (150-450); RED BLOOD CELL COUNT(AUTO) 2.76 MIL/uL (4.5-6.0); WHITE BLOOD COUNT (AUTO) 14.8 K/uL (4.3-11.0)
[2023-07-05] MEDS: CHOLECALCIFEROL 1,000 UNIT TABLET (VIT D3) GT SCH (17:14)
[2023-07-05] MEDS: Z GUARD REMEDY 2 OZ OINT TP SCH (17:23)
[2023-07-05 18:19] LABS: ANISOCYTOSIS 1+; BAND % (MANUAL) 3 % (0.0-5.0); EOSINOPHILS % (MANUAL) 1 % (0-4); LYMPHOCYTES % (MANUAL) 14 % (16-48); MONOCYTES % (MANUAL) 3 % (0-11.0); NEUTROPHILS % (MANUAL) 79 (42-76); PLATELET ESTIMATE ADEQUATE
[2023-07-05 20:00] VITALS: BP 125/56; TEMP 97.9; O2SAT 100
[2023-07-05] MEDS: SENNOSIDES 8.6 MG TABLET GT SCH (22:30)
[2023-07-06] VITALS: BP 101/57; TEMP 97.9; O2SAT 100
[2023-07-06 04:00] VITALS: BP 105/69; TEMP 98; O2SAT 100
[2023-07-06] MEDS: MEROPENEM 1 G in IV NS 0.9% 100 ML IV SCH ×2 (06:21→13:14)
[2023-07-06] MEDS: VALPROIC ACID 250 MG/5 ML UDC GT SCH ×2 (06:21→13:13)
[2023-07-06] MEDS: NEPRO 1,000 ML BOTTLE GT PRN (07:15)
[2023-07-06 08:00] VITALS: BP 117/60; TEMP 99.3; O2SAT 100
[2023-07-06] MEDS: THERAHONEY GEL 1.5 OZ TUBE TP SCH ×2 (09:00→10:14)
[2023-07-06] MEDS: LACOSAMIDE ORAL SOLN 50 MG/5 ML UDC GT SCH (09:00)
[2023-07-06] MEDS: DOCUSATE SODIUM LIQ 100 MG/10 ML UDC NG SCH (10:04)
[2023-07-06] MEDS: MIDODRINE HCL (5MG) 5 MG TABLET GT SCH ×2 (10:05→13:14)
[2023-07-06] MEDS: POLYETHYLENE GLYCOL 3350 17 GM POWD.PACK GT SCH (10:05)
[2023-07-06] MEDS: LEVETIRACETAM SOL (5 ML) 100 MG/ML UDC GT SCH (10:05)
[2023-07-06] MEDS: THIAMINE HCL 100 MG TABLET GT SCH (10:05)
[2023-07-06] MEDS: LEVOTHYROXINE SODIUM 75 MCG TABLET GT SCH (10:06)
[2023-07-06] MEDS: MULTIVITAMINS,THERAGRAN 1 UDTAB TABLET GT SCH (10:06)
[2023-07-06] MEDS: AMIODARONE HCL 200 MG TABLET GT SCH ×2 (10:06→13:14)
[2023-07-06] MEDS: PANTOPRAZOLE 40 MG VIAL IV SCH (10:07)
[2023-07-06] MEDS: PROSOURCE / PROSTAT (PYXIS) 30 ML UDC GT SCH (10:13)
[2023-07-06] MEDS: CHLORHEXIDINE GLUCONATE 15 ML UDC MM SCH (10:13)
[2023-07-06 12:00] VITALS: BP 117/60; TEMP 99.4; O2SAT 100
[2023-07-06 13:14] VITALS: BP 117/60
[2023-07-06] MEDS ORDERED: MERO1VIA23 IV (14:46)
== END 2023-07-06 17:50 | DRG 720 ==
LOC: ER 23:01 → TELE-TD 06-22 01:02 → TELE1 06-23 16:20
PROVIDERS: ADMIT Internal Medicine; ATTEND Nurse Practitioner Acute Care
PROC: 5A1955Z Respiratory Ventilation, Greater than 96 Consecutive Hours (ICD-10-PCS; principal; 2023-06-22)
PROC: 30233N1 Transfusion of Nonautologous Red Blood Cells into Peripheral Vein, Percutaneous Approach (ICD-10-PCS; 2023-06-22)
PROC: 05H633Z Insertion of Infusion Device into Left Subclavian Vein, Percutaneous Approach (ICD-10-PCS; 2023-06-23)
PROC: B547ZZA Ultrasonography of Left Subclavian Vein, Guidance (ICD-10-PCS; 2023-06-23)
PROC: 0JB70ZZ Excision of Back Subcutaneous Tissue and Fascia, Open Approach (ICD-10-PCS; 2023-06-28)
PROC: 0JB70ZZ Excision of Back Subcutaneous Tissue and Fascia, Open Approach (ICD-10-PCS; 2023-07-04)
DX: A41.51 Sepsis due to Escherichia coli [E. coli] (principal); N17.0 Acute kidney failure with tubular necrosis; J96.20 Acute and chronic respiratory failure, unspecified whether with hypoxia or hypercapnia; G92.8 Other toxic encephalopathy; E43 Unspecified severe protein-calorie malnutrition; J15.69 Pneumonia due to other Gram-negative bacteria; L89.153 Pressure ulcer of sacral region, stage 3; J44.0 Chronic obstructive pulmonary disease with (acute) lower respiratory infection; L89.896 Pressure-induced deep tissue damage of other site; T83.518A Infection and inflammatory reaction due to other urinary catheter, initial encounter; Z93.0 Tracheostomy status; Z99.11 Dependence on respirator [ventilator] status; N39.0 Urinary tract infection, site not specified; T83.511A Infection and inflammatory reaction due to indwelling urethral catheter, initial encounter; J90 Pleural effusion, not elsewhere classified; D68.69 Other thrombophilia; E87.1 Hypo-osmolality and hyponatremia; R65.20 Severe sepsis without septic shock; E03.9 Hypothyroidism, unspecified; E11.22 Type 2 diabetes mellitus with diabetic chronic kidney disease; E78.5 Hyperlipidemia, unspecified; E86.1 Hypovolemia; E87.20 Acidosis, unspecified; E87.6 Hypokalemia; E88.09 Other disorders of plasma-protein metabolism, not elsewhere classified; G40.909 Epilepsy, unspecified, not intractable, without status epilepticus; I48.91 Unspecified atrial fibrillation; Z16.12 Extended spectrum beta lactamase (ESBL) resistance; Z86.16 Personal history of COVID-19; Z87.01 Personal history of pneumonia (recurrent); Z85.828 Personal history of other malignant neoplasm of skin; Z86.74 Personal history of sudden cardiac arrest; Z87.891 Personal history of nicotine dependence; Z93.1 Gastrostomy status; D47.1 Chronic myeloproliferative disease; R13.10 Dysphagia, unspecified; Z74.09 Other reduced mobility; Z68.34 Body mass index [BMI] 34.0-34.9, adult; N18.9 Chronic kidney disease, unspecified; R00.0 Tachycardia, unspecified; K92.2 Gastrointestinal hemorrhage, unspecified; Y84.6 Urinary catheterization as the cause of abnormal reaction of the patient, or of later complication, without mention of misadventure at the time of the procedure; Y92.129 Unspecified place in nursing home as the place of occurrence of the external cause; B96.4 Proteus (mirabilis) (morganii) as the cause of diseases classified elsewhere; I12.9 Hypertensive chronic kidney disease with stage 1 through stage 4 chronic kidney disease, or unspecified chronic kidney disease; Z85.22 Personal history of malignant neoplasm of nasal cavities, middle ear, and accessory sinuses; Z86.14 Personal history of Methicillin resistant Staphylococcus aureus infection; D50.0 Iron deficiency anemia secondary to blood loss (chronic)
CPT/HCPCS: 31720; 36410; 36415; 70450-TC; 71045-TC; 74018; 76770-TC; 80048-TC; 80053-TC; 80076-TC; 80164-TC; 80202-TC; 81001; 82272-TC; 82533; 82570-TC; 82728-TC; 83540-TC; 83605-TC; 83735-TC; 84100-TC; 84300-TC; 84439-TC; 84443-TC; 84481; 84484-TC; 84550-TC; 85025-TC; 85027-TC; 85730-TC; 86850-TC; 87040-TC; 87081-TC; 87086-TC; 87186-TC; 93307-TC; 94002-TC; 94003-TC; 94760-TC; 94762-TC; 94799-TC; 99082-TC; A4223; A4623; A6253; A6403; A7526; C9113; C9803; G0378; J0282; J0692; J1953; J2185; J2543; J2916; J3370; J3480; J3490; J7030; J7050; J7060; P9016; Q9963

== ENCOUNTER 2023-07-25 17:50 | Inpatient (IN) | payer MEDICAID, MEDICARE ==
[~2023-07-25] VITALS: Ht 172.7 cm; Wt 115.7 kg
[~2023-07-25 17:50] MED LIST changes: +ACET160S GT; +ALBU2.5V13 IH; +ALBU2.5V38 IH; +ALLA266C2 TP; +AMIN30LI2 GT; +ASCO-352 GT; +ASPI-992 GT; +ATOR80TA GT; +BISA10SU11 RC; +CALCIUM ALGINATE TP; +CHLO473M5 MM; +CHOL100043 GT; +COLL1POW2 MC; +CRAN3875 GT; +DOCU100T2 GT; +FAMO20TA80 GT; +FERR300L GT; +INSU100V39 SQ; +LACO10SO GT; -LACT-209 GT; +LEVE100S GT; +LEVO50TA GT; +MAGN400O6 GT; +MELA5TAB GT; +MERO1VIA23 IV; +MULT9LIQ9 GT; +NA P133E RC; +NUT.237L31 GT; +ONDA-97 GT; +PETR113O TP; +POLY17PO4 GT; +POVI3780 TP; +SENN-261 GT; +VALP250S4 GT; +VITA1TAB20 GT; +ZINC1CAP3 GT; +ZINC50TA71 GT
[2023-07-25] MEDS ORDERED: ACET-2605 GT (18:29)
[2023-07-25] MEDS ORDERED: ZINC56.713 TP (18:29)
[2023-07-25] MEDS ORDERED: ENOX40DI SQ (18:29)
[2023-07-25] MEDS ORDERED: ACET-868 GT (18:29)
[2023-07-25] MEDS ORDERED: COLL30OI TP (18:29)
[2023-07-25] MEDS ORDERED: CEFEPIME 1 GM in IV D5W 50 ML IV ONE (18:30)
[2023-07-25] MEDS ORDERED: VANCOMYCIN 1 GM in IV D5W 250 ML IV ONE (18:30)
[2023-07-25] MEDS ORDERED: IV NS 0.9% 1,000 ML BAG IV ONE (18:30)
[2023-07-25 19:26] LABS: BASOPHILS # (AUTO) 0.1 K/uL (0.0-0.2); BASOPHILS % (AUTO) 0.2 % (0.0-2.0); EOSINOPHILS # (AUTO) 0.5 K/uL (0.0-0.7); EOSINOPHILS % (AUTO) 1.4 % (0.0-6.0); HEMATOCRIT 21 % (39-51); LYMPHOCYTES # (AUTO) 1.8 K/uL (0.8-4.8); LYMPHOCYTES % (AUTO) 4.8 % (20.0-44.0); MEAN CORPUSCULAR HEMOGLOBIN 27 PG (26.0-33.0); MEAN CORPUSCULAR HGB CONC 30 g/dl (31.0-36.0); MEAN CORPUSCULAR VOLUME 91 fL (80-96); MONOCYTES # (AUTO) 3.9 K/uL (0.1-1.30); MONOCYTES % (AUTO) 10.5 % (2.0-12.0); NEUTROPHILS # (AUTO) 31.2 K/uL (1.8-8.9); NEUTROPHILS % (AUTO) 83.1 % (43.0-81.0); PLATELET COUNT (AUTO) 198 K/uL (150-450); RED BLOOD CELL COUNT(AUTO) 2.34 MIL/uL (4.5-6.0); RED CELL DISTRIBUTION WIDTH 20.8 % (11.5-15.0)
[2023-07-25 19:33] LABS: HEMOGLOBIN 6.3 g/dL (13.5-17.5); WHITE BLOOD COUNT (AUTO) 37.5 K/uL (4.3-11.0)
[2023-07-25 19:38] LABS: APPEARANCE,URINE CLOUDY (CLEAR); BILIRUBIN,URINE 1+ (NEGATIVE); BLOOD, URINE 2+ Ery/uL (NEGATIVE); COLOR,URINE YELLOW (YELLOW); KETONES,URINE TRACE mg/dL (NEGATIVE); LEUKOCYTE ESTERASE ,URINE 3+ (NEGATIVE); NITRITE, URINE NEGATIVE (NEGATIVE); PROTEIN,URINE 2+ mg/dl (NEGATIVE); UGLUCOSE NEGATIVE (NEGATIVE); UROBILINOGEN,URINE 0.2 EU/dL (0.2)
[2023-07-25 19:39] LABS: ADD URINE CULTURE YES; BACTERIA,URINE 4+ /HPF (None Seen); MUCUS,URINE Many /LPF (None Seen); SQUAMOUS EPITHELIAL CELL,UR None Seen /HPF (None Seen); WBC,URINE TOO NUMEROUS TO COUN /HPF (0-3); YEAST,URINE Hyphal filaments /HPF (None Seen)
[2023-07-25 19:40] LABS: ALANINE AMINOTRANSFERASE 13 U/L (12-78); ALKALINE PHOSPHATASE 163 U/L (46-116); ASPARTATE AMINOTRANSFERASE 29 U/L (15-37); BILIRUBIN,DIRECT 0.3 mg/dL (0.0-0.2); BILIRUBIN,TOTAL 0.4 mg/dL (0.2-1.0); CALCIUM, SERUM 8.7 mg/dL (8.5-10.1); CARBON DIOXIDE 27 mmol/L (21-32); CHLORIDE 103 mmol/L (98-107); CREATININE 2.5 mg/dL (0.6-1.3); GLUCOSE 196 mg/dL (74-106); SODIUM SERUM 147 mmol/L (136-145); TOTAL PROTEIN, SERUM 7.9 g/dL (6.4-8.2)
[2023-07-25 19:42] LABS: INR 2.54 (0.91-1.10); PARTIAL THROMBOPLASTIN TIME 42.7 SEC (24.3-34.3); PROTHROMBIN TIME 25.3 SECS (9.2-11.1)
[2023-07-25 19:47] LABS: POTASSIUM 2.8 mmol/L (3.5-5.1)
[2023-07-25 19:49] LABS: ALBUMIN 1.1 g/dL (3.4-5.0); UREA NITROGEN, BLOOD 172 mg/dL (7-18)
[2023-07-25 19:50] LABS: LACTIC ACID 5.5 mmol/L (0.4-2.0)
[2023-07-25 19:58] LABS: ANISOCYTOSIS 1+; BAND % (MANUAL) 5 % (0.0-5.0); LYMPHOCYTES % (MANUAL) 9 % (16-48); MONOCYTES % (MANUAL) 7 % (0-11.0); MYELOCYTES % 10 % (0-0); NEUTROPHILS % (MANUAL) 69 (42-76); PLATELET ESTIMATE ADEQUATE
[2023-07-25 19:59] LABS: OVALOCYTES 1+; TARGET CELLS 1+
[2023-07-25] MEDS ORDERED: ONDANSETRON HCL/PF 4 MG/2 ML VIAL IVP PRN (20:30)
[2023-07-25] MEDS ORDERED: Z GUARD REMEDY 4 OZ OINT TP PRN (20:30)
[2023-07-25] MEDS ORDERED: ACETAMINOPHEN 325 MG TABLET PO PRN (20:30)
[2023-07-25] MEDS ORDERED: NOREPINEPHRINE 8 MG in IV NS 0.9% 242 ML IV PRN (20:30)
[2023-07-25] MEDS ORDERED: POTASSIUM CHLORIDE 20 MEQ POWDER PACKET GT STA (22:28)
[2023-07-25] MEDS: IV NS 0.9% 1,000 ML IV PRN (22:41)
[2023-07-25] MEDS ORDERED: MEROPENEM 500 MG in IV NS 0.9% 50 ML IV SCH (23:00)
[2023-07-25] MEDS ORDERED: PANTOPRAZOLE 40 MG VIAL ONE (23:54)
[2023-07-25] MEDS ORDERED: MEROPENEM 500 MG VIAL IV ONE (23:54)
[2023-07-26] VITALS (70 sets, daily range): BP systolic 64–137; BP diastolic 38–102; TEMP 98–99.5; O2SAT 94–100
[2023-07-26] MEDS ORDERED: POTASSIUM CHLORIDE 20 MEQ POWDER PACKET ONE (00:27)
[2023-07-26] MEDS ORDERED: FLUCONAZOLE IN NS 100 ML IV ONE (01:10)
[2023-07-26] MEDS: FLUCONAZOLE IN NS 100 MG in PREMIX 1 EA IV SCH ×4 (01:39→22:45)
[2023-07-26] MEDS ORDERED: NOREPINEPHRINE 8MG/250ML RTU 250 ML IV ONE (02:14)
[2023-07-26] MEDS: NOREPINEPHRINE 8 MG in IV NS 0.9% 242 ML IV PRN ×5 (02:18→18:30)
[2023-07-26 04:17] LABS: BASOPHILS # (AUTO) 0.2 K/uL (0.0-0.2); BASOPHILS % (AUTO) 0.4 % (0.0-2.0); HEMATOCRIT 25 % (39-51); HEMOGLOBIN 7.6 g/dL (13.5-17.5); LYMPHOCYTES # (AUTO) 3.4 K/uL (0.8-4.8); LYMPHOCYTES % (AUTO) 6.8 % (20.0-44.0); MEAN CORPUSCULAR HEMOGLOBIN 28 PG (26.0-33.0); MEAN CORPUSCULAR HGB CONC 30 g/dl (31.0-36.0); MEAN CORPUSCULAR VOLUME 92 fL (80-96); MONOCYTES # (AUTO) 4.8 K/uL (0.1-1.30); MONOCYTES % (AUTO) 9.6 % (2.0-12.0); NEUTROPHILS # (AUTO) 40.7 K/uL (1.8-8.9); NEUTROPHILS % (AUTO) 81.2 % (43.0-81.0); PLATELET COUNT (AUTO) 207 K/uL (150-450); RED BLOOD CELL COUNT(AUTO) 2.73 MIL/uL (4.5-6.0); RED CELL DISTRIBUTION WIDTH 18.6 % (11.5-15.0)
[2023-07-26 04:37] LABS: CALCIUM, SERUM 8.1 mg/dL (8.5-10.1); CARBON DIOXIDE 23 mmol/L (21-32); CHLORIDE 107 mmol/L (98-107); CREATININE 2.1 mg/dL (0.6-1.3); GLUCOSE 120 mg/dL (74-106); POTASSIUM 3.6 mmol/L (3.5-5.1); SODIUM SERUM 145 mmol/L (136-145)
[2023-07-26 04:42] LABS: WHITE BLOOD COUNT (AUTO) 50.1 K/uL (4.3-11.0)
[2023-07-26 04:43] LABS: MAGNESIUM 4.3 mg/dL (1.8-2.4); PHOSPHORUS 8.1 mg/dL (2.5-4.9); UREA NITROGEN, BLOOD 160 mg/dL (7-18)
[2023-07-26] MEDS: VANCOMYCIN 1 GM in IV D5W 250 ML IV SCH (08:49)
[2023-07-26] MEDS: PANTOPRAZOLE 40 MG VIAL IV SCH ×3 (08:49→21:29)
[2023-07-26] MEDS: IV NS 0.9% 1,000 ML IV PRN ×2 (08:52→22:41)
[2023-07-26 09:35] LABS: ANISOCYTOSIS 1+; BAND % (MANUAL) 8 % (0.0-5.0); BASOPHILS % (MANUAL) 0 % (0.0-2.0); EOSINOPHILS % (MANUAL) 2 % (0-4); LYMPHOCYTES % (MANUAL) 7 % (16-48); MONOCYTES % (MANUAL) 8 % (0-11.0); NEUTROPHILS % (MANUAL) 75 (42-76); OVALOCYTES 1+; PLATELET ESTIMATE ADEQUATE
[2023-07-26] MEDS: MEROPENEM 500 MG in IV NS 0.9% 50 ML IV SCH ×2 (10:11→22:45)
[2023-07-26] MEDS: DAKINS QUARTER STRENGTH (0.125%) 480 ML BOTTLE TOP SCH ×3 (10:12→15:58)
[2023-07-26] MEDS ORDERED: GLUCERNA 1.5 1,000 ML BOTTLE GT SCH (11:30)
[2023-07-26] MEDS: VALPROIC ACID 250 MG/5 ML UDC GT SCH ×2 (13:00→21:28)
[2023-07-26 13:23] LABS: ABG BASE EXCESS -1.1 mmol/L; ABG PCO2 32.6 mmHg (35.0-45.0); ABG PH 7.457 (7.350-7.450); ABG PO2 113.8 mmHg (75.0-100.0); ABG TOTAL HEMOGLOBIN 7.7 G/dL (13.5-18.0); AaDO2 133.9 mmHg; COHb 0.5 % (0.5-1.5); MetHb 0.3 % (0.0-1.5); O2Hb 97.2 % (94.0-97.0); SITE, ABG Right Radial; VENT MODE, BG AC 10 500 40% +5
[2023-07-26 14:29] LABS: CARBON DIOXIDE 26 mmol/L (21-32); CHLORIDE 105 mmol/L (98-107); CREATININE 2.3 mg/dL (0.6-1.3); GLUCOSE 245 mg/dL (74-106); HEMATOCRIT 21 % (39-51); PLATELET COUNT (AUTO) 233 K/uL (150-450); POTASSIUM 3.1 mmol/L (3.5-5.1); SODIUM SERUM 144 mmol/L (136-145)
[2023-07-26 14:31] LABS: UREA NITROGEN, BLOOD 158 mg/dL (7-18)
[2023-07-26 14:36] LABS: BASOPHILS # (AUTO) 0.2 K/uL (0.0-0.2); BASOPHILS % (AUTO) 0.3 % (0.0-2.0); EOSINOPHILS % (AUTO) 0.1 % (0.0-6.0); LYMPHOCYTES # (AUTO) 2.2 K/uL (0.8-4.8); LYMPHOCYTES % (AUTO) 4.3 % (20.0-44.0); MEAN CORPUSCULAR HEMOGLOBIN 27 PG (26.0-33.0); MEAN CORPUSCULAR HGB CONC 30 g/dl (31.0-36.0); MEAN CORPUSCULAR VOLUME 90 fL (80-96); MONOCYTES % (AUTO) 11.6 % (2.0-12.0); NEUTROPHILS # (AUTO) 43.2 K/uL (1.8-8.9); NEUTROPHILS % (AUTO) 83.7 % (43.0-81.0); RED BLOOD CELL COUNT(AUTO) 2.34 MIL/uL (4.5-6.0); RED CELL DISTRIBUTION WIDTH 18.7 % (11.5-15.0)
[2023-07-26 14:38] LABS: WHITE BLOOD COUNT (AUTO) 51.6 K/uL (4.3-11.0)
[2023-07-26 14:39] LABS: HEMOGLOBIN 6.4 g/dL (13.5-17.5)
[2023-07-26 15:52] LABS: CREATININE, URINE 41.1 MG/DL (30.0-125.0); URINE TOTAL PROTEIN 314.6 mg/dL (0-11.9)
[2023-07-26] MEDS: DOCUSATE SODIUM LIQ 100 MG/10 ML UDC GT SCH (17:00)
[2023-07-26] MEDS: PROSTAT (PYXIS) 30 ML UDC GT SCH (17:00)
[2023-07-26] MEDS: LEVETIRACETAM SOL (5 ML) 100 MG/ML UDC GT SCH (17:00)
[2023-07-26] MEDS: CHOLECALCIFEROL 1,000 UNIT TABLET (VIT D3) GT SCH (17:34)
[2023-07-26] MEDS: FERROUS SULFATE UDC 300 MG/5 ML UDC GT SCH (17:34)
[2023-07-26] MEDS ORDERED: POTASSIUM CHLORIDE 20 MEQ POWDER PACKET GT ONE (19:00)
[2023-07-26 19:33] LABS: BAND % (MANUAL) 4 % (0.0-5.0); LYMPHOCYTES % (MANUAL) 6 % (16-48); METAMYELOCYTES % 2 % (0-0); MONOCYTES % (MANUAL) 6 % (0-11.0); MYELOCYTES % 29 % (0-0); NEUTROPHILS % (MANUAL) 52 (42-76); PLATELET ESTIMATE ADEQUATE; PROMYELOCYTES % 1 % (0-0)
[2023-07-26] MEDS ORDERED: NOREPINEPHRINE 32 MG in IV NS 0.9% 250 ML IV PRN (20:00)
[2023-07-26] MEDS: CHLORHEXIDINE GLUCONATE 15 ML UDC MM SCH (21:28)
[2023-07-26] MEDS: FAMOTIDINE (20 MG) 20 MG TABLET GT SCH (21:29)
[2023-07-26] MEDS: LACOSAMIDE ORAL SOLN 50 MG/5 ML UDC GT SCH (21:29)
[2023-07-26] MEDS: ATORVASTATIN 40 MG TABLET GT SCH (21:30)
[2023-07-27] VITALS (81 sets, daily range): BP systolic 80–157; BP diastolic 33–96; TEMP 97.6–99; O2SAT 93–100
[2023-07-27 05:18] LABS: BASOPHILS # (AUTO) 0.1 K/uL (0.0-0.2); BASOPHILS % (AUTO) 0.1 % (0.0-2.0); EOSINOPHILS % (AUTO) 0.1 % (0.0-6.0); HEMATOCRIT 24 % (39-51); HEMOGLOBIN 7.6 g/dL (13.5-17.5); LYMPHOCYTES # (AUTO) 2.2 K/uL (0.8-4.8); LYMPHOCYTES % (AUTO) 5.4 % (20.0-44.0); MEAN CORPUSCULAR HEMOGLOBIN 28 PG (26.0-33.0); MEAN CORPUSCULAR HGB CONC 32 g/dl (31.0-36.0); MEAN CORPUSCULAR VOLUME 90 fL (80-96); MONOCYTES # (AUTO) 5.6 K/uL (0.1-1.30); MONOCYTES % (AUTO) 13.6 % (2.0-12.0); NEUTROPHILS % (AUTO) 80.8 % (43.0-81.0); PLATELET COUNT (AUTO) 173 K/uL (150-450); RED BLOOD CELL COUNT(AUTO) 2.66 MIL/uL (4.5-6.0); RED CELL DISTRIBUTION WIDTH 17.2 % (11.5-15.0)
[2023-07-27 05:19] LABS: WHITE BLOOD COUNT (AUTO) 40.9 K/uL (4.3-11.0)
[2023-07-27 05:25] LABS: ALANINE AMINOTRANSFERASE 9 U/L (12-78); ALKALINE PHOSPHATASE 141 U/L (46-116); ASPARTATE AMINOTRANSFERASE 37 U/L (15-37); BILIRUBIN,TOTAL 0.4 mg/dL (0.2-1.0); CALCIUM, SERUM 7.9 mg/dL (8.5-10.1); CARBON DIOXIDE 24 mmol/L (21-32); CHLORIDE 108 mmol/L (98-107); CREATININE 1.8 mg/dL (0.6-1.3); GLUCOSE 181 mg/dL (74-106); MAGNESIUM 3.4 mg/dL (1.8-2.4); PHOSPHORUS 6.8 mg/dL (2.5-4.9); POTASSIUM 3.3 mmol/L (3.5-5.1); SODIUM SERUM 146 mmol/L (136-145); TOTAL PROTEIN, SERUM 6.6 g/dL (6.4-8.2)
[2023-07-27 05:33] LABS: CREATINE KINASE, TOTAL 133 U/L (39-308)
[2023-07-27 05:42] LABS: ALBUMIN 0.9 g/dL (3.4-5.0)
[2023-07-27 05:43] LABS: UREA NITROGEN, BLOOD 146 mg/dL (7-18)
[2023-07-27] MEDS: VALPROIC ACID 250 MG/5 ML UDC GT SCH ×3 (06:45→20:45)
[2023-07-27] MEDS ORDERED: ACETAMINOPHEN 650 MG/20.3 ML UDC GT PRN (07:30)
[2023-07-27] MEDS: VANCOMYCIN 1 GM in IV D5W 250 ML IV SCH (08:14)
[2023-07-27] MEDS: POTASSIUM CL. PREMIX PERIPHER. 50 ML IV SCH ×4 (08:49→11:46)
[2023-07-27] MEDS: PANTOPRAZOLE 40 MG VIAL IV SCH ×2 (08:52→20:48)
[2023-07-27] MEDS: LEVETIRACETAM SOL (5 ML) 100 MG/ML UDC GT SCH ×3 (08:52→17:00)
[2023-07-27] MEDS: DOCUSATE SODIUM LIQ 100 MG/10 ML UDC GT SCH ×2 (08:52→16:26)
[2023-07-27] MEDS: CHLORHEXIDINE GLUCONATE 15 ML UDC MM SCH ×2 (08:52→20:49)
[2023-07-27] MEDS: LACOSAMIDE ORAL SOLN 50 MG/5 ML UDC GT SCH ×2 (08:55→20:48)
[2023-07-27] MEDS: ASPIRIN 325 MG TABLET GT SCH (08:56)
[2023-07-27] MEDS: LEVOTHYROXINE SODIUM 50 MCG TABLET GT SCH (08:56)
[2023-07-27] MEDS: FAMOTIDINE (20 MG) 20 MG TABLET GT SCH ×2 (08:56→20:49)
[2023-07-27] MEDS: PROSTAT (PYXIS) 30 ML UDC GT SCH ×2 (08:59→16:27)
[2023-07-27] MEDS: DAKINS QUARTER STRENGTH (0.125%) 480 ML BOTTLE TOP SCH (09:00)
[2023-07-27] MEDS ORDERED: ENOXAPARIN SODIUM 40 MG/0.4 ML DISP.SYRIN SQ SCH (09:00)
[2023-07-27] MEDS: IV 1/2NS 1000 ML 1,000 ML IV PRN ×2 (09:10→22:25)
[2023-07-27 09:42] LABS: ABG BASE EXCESS -1.3 mmol/L; ABG OXYGEN SATURATION 97.8 % (92.0-98.5); ABG PCO2 32.5 mmHg (35.0-45.0); ABG PO2 106.8 mmHg (75.0-100.0); ABG TOTAL HEMOGLOBIN 10.8 G/dL (13.5-18.0); COHb 0.6 % (0.5-1.5); MetHb 0.2 % (0.0-1.5); PEEP,BG 5 cm H2O; SITE, ABG Right Radial; VENT MODE, BG AC 10 500 40% +5; VT, ABG 500 mL
[2023-07-27] MEDS: MEROPENEM 1 G in IV NS 0.9% 100 ML IV SCH ×2 (12:05→20:54)
[2023-07-27] MEDS: FERROUS SULFATE UDC 300 MG/5 ML UDC GT SCH (17:35)
[2023-07-27] MEDS: CHOLECALCIFEROL 1,000 UNIT TABLET (VIT D3) GT SCH (17:36)
[2023-07-27 17:55] LABS: INR 3.28 (0.91-1.10); PROTHROMBIN TIME 32.2 SECS (9.2-11.1)
[2023-07-27 20:47] LABS: BAND % (MANUAL) 3 % (0.0-5.0); LYMPHOCYTES % (MANUAL) 8 % (16-48); METAMYELOCYTES % 2 % (0-0); MONOCYTES % (MANUAL) 4 % (0-11.0); MYELOCYTES % 20 % (0-0); NEUTROPHILS % (MANUAL) 63 (42-76); PLATELET ESTIMATE ADEQU
[2023-07-27 20:48] LABS: ANISOCYTOSIS 1+; TARGET CELLS 1+
[2023-07-27] MEDS: ATORVASTATIN 40 MG TABLET GT SCH (21:02)
[2023-07-27] MEDS: FLUCONAZOLE IN NS 100 MG in PREMIX 1 EA IV SCH ×2 (22:38)
[2023-07-27] MEDS: NOREPINEPHRINE 8 MG in IV NS 0.9% 250ML IV PRN (22:48)
[2023-07-28] VITALS (103 sets, daily range): BP systolic 69–144; BP diastolic 43–95; TEMP 96.8–98.6; O2SAT 99–100
[2023-07-28] MEDS: VALPROIC ACID 250 MG/5 ML UDC GT SCH (04:35)
[2023-07-28 05:46] LABS: ALANINE AMINOTRANSFERASE 7 U/L (12-78); ALKALINE PHOSPHATASE 122 U/L (46-116); ASPARTATE AMINOTRANSFERASE 41 U/L (15-37); BASOPHILS # (AUTO) 0.2 K/uL (0.0-0.2); BASOPHILS % (AUTO) 0.5 % (0.0-2.0); BILIRUBIN,TOTAL 0.4 mg/dL (0.2-1.0); CALCIUM, SERUM 8.2 mg/dL (8.5-10.1); CARBON DIOXIDE 22 mmol/L (21-32); CHLORIDE 110 mmol/L (98-107); CREATININE 1.3 mg/dL (0.6-1.3); EOSINOPHILS # (AUTO) 0.1 K/uL (0.0-0.7); EOSINOPHILS % (AUTO) 0.3 % (0.0-6.0); GLUCOSE 154 mg/dL (74-106); LYMPHOCYTES # (AUTO) 1.8 K/uL (0.8-4.8); LYMPHOCYTES % (AUTO) 4.7 % (20.0-44.0); MAGNESIUM 3.1 mg/dL (1.8-2.4); MEAN CORPUSCULAR HEMOGLOBIN 29 PG (26.0-33.0); MEAN CORPUSCULAR HGB CONC 31 g/dl (31.0-36.0); MEAN CORPUSCULAR VOLUME 92 fL (80-96); MONOCYTES # (AUTO) 4.4 K/uL (0.1-1.30); MONOCYTES % (AUTO) 11.2 % (2.0-12.0); NEUTROPHILS # (AUTO) 32.9 K/uL (1.8-8.9); NEUTROPHILS % (AUTO) 83.3 % (43.0-81.0); PHOSPHORUS 5.9 mg/dL (2.5-4.9); PLATELET COUNT (AUTO) 163 K/uL (150-450); POTASSIUM 3.8 mmol/L (3.5-5.1); RED BLOOD CELL COUNT(AUTO) 2.15 MIL/uL (4.5-6.0); RED CELL DISTRIBUTION WIDTH 17.6 % (11.5-15.0); SODIUM SERUM 146 mmol/L (136-145); TOTAL PROTEIN, SERUM 6.1 g/dL (6.4-8.2)
[2023-07-28 05:53] LABS: WHITE BLOOD COUNT (AUTO) 39.5 K/uL (4.3-11.0)
[2023-07-28 05:54] LABS: HEMATOCRIT 20 % (39-51); HEMOGLOBIN 6.1 g/dL (13.5-17.5)
[2023-07-28 05:57] LABS: ALBUMIN 0.8 g/dL (3.4-5.0); UREA NITROGEN, BLOOD 128 mg/dL (7-18)
[2023-07-28] MEDS: NOREPINEPHRINE 8 MG in IV NS 0.9% 250ML IV PRN ×3 (06:17→23:42)
[2023-07-28] MEDS: IV 1/2NS 1000 ML 1,000 ML IV PRN ×3 (06:19→23:18)
[2023-07-28 07:09] LABS: PTH, INTACT 58 pg/mL (15-65)
[2023-07-28] MEDS: ASPIRIN 325 MG TABLET GT SCH (08:36)
[2023-07-28] MEDS: LACOSAMIDE ORAL SOLN 50 MG/5 ML UDC GT SCH (08:48)
[2023-07-28] MEDS: PANTOPRAZOLE 40 MG VIAL IV SCH ×2 (08:48→21:42)
[2023-07-28] MEDS: MEROPENEM 1 G in IV NS 0.9% 100 ML IV SCH ×2 (08:48→21:36)
[2023-07-28] MEDS: LEVETIRACETAM SOL (5 ML) 100 MG/ML UDC GT SCH (08:49)
[2023-07-28] MEDS: DOCUSATE SODIUM LIQ 100 MG/10 ML UDC GT SCH ×3 (08:49→19:04)
[2023-07-28] MEDS: PROSTAT (PYXIS) 30 ML UDC GT SCH ×2 (08:49→17:00)
[2023-07-28] MEDS: LEVOTHYROXINE SODIUM 50 MCG TABLET GT SCH (08:49)
[2023-07-28] MEDS: FAMOTIDINE (20 MG) 20 MG TABLET GT SCH (08:49)
[2023-07-28] MEDS: CHLORHEXIDINE GLUCONATE 15 ML UDC MM SCH ×2 (08:49→21:42)
[2023-07-28] MEDS: DAKINS QUARTER STRENGTH (0.125%) 480 ML BOTTLE TOP SCH ×2 (08:50)
[2023-07-28] MEDS: VANCOMYCIN 1 GM in IV D5W 250 ML IV SCH (09:00)
[2023-07-28 09:26] LABS: INR 2.83 (0.91-1.10)
[2023-07-28] MEDS ORDERED: MISCELLANEOUS MED 1 EA EA IV ONE (11:00)
[2023-07-28 11:27] LABS: BAND % (MANUAL) 2 % (0.0-5.0)
[2023-07-28 11:28] LABS: LYMPHOCYTES % (MANUAL) 9 % (16-48); METAMYELOCYTES % 4 % (0-0); MONOCYTES % (MANUAL) 4 % (0-11.0); MYELOCYTES % 16 % (0-0); NEUTROPHILS % (MANUAL) 65 (42-76)
[2023-07-28 11:29] LABS: ANISOCYTOSIS 1+; BASOPHILS % (MANUAL) 0 % (0.0-2.0); EOSINOPHILS % (MANUAL) 0 % (0-4); PLATELET ESTIMATE ADEQUATE
[2023-07-28] MEDS ORDERED: PHYTONADIONE INJ 10 MG/1 ML AMPUL SQ ONE (12:30)
[2023-07-28] MEDS: LEVETIRACETAM (500MG) 1,500 MG in IV NS 0.9% 85 ML IV SCH ×2 (13:30→22:12)
[2023-07-28] MEDS: VALPROATE 1,000 MG in IV D5W 100 ML IV SCH ×2 (14:06→21:37)
[2023-07-28 14:57] LABS: INR 2.58 (0.91-1.10); PROTHROMBIN TIME 25.7 SECS (9.2-11.1)
[2023-07-28] MEDS: CHOLECALCIFEROL 1,000 UNIT TABLET (VIT D3) GT SCH ×2 (18:00→19:04)
[2023-07-28] MEDS: FERROUS SULFATE UDC 300 MG/5 ML UDC GT SCH ×2 (18:00→19:04)
[2023-07-28] MEDS: FAMOTIDINE/PF INJ 20 MG/2 ML VIAL IV SCH (21:42)
[2023-07-28] MEDS: ATORVASTATIN 40 MG TABLET GT SCH (21:44)
[2023-07-28] MEDS: LACOSAMIDE 100 MG in IV NS 0.9% 50 ML IV SCH (22:00)
[2023-07-28] MEDS: FLUCONAZOLE IN NS 100 MG in PREMIX 1 EA IV SCH ×2 (22:35)
[2023-07-29] VITALS (106 sets, daily range): BP systolic 76–144; BP diastolic 46–86; TEMP 96.7–98.2; O2SAT 95–100
[2023-07-29] MEDS: VALPROATE 1,000 MG in IV D5W 100 ML IV SCH ×3 (04:19→21:06)
[2023-07-29 05:12] LABS: INR 1.25 (0.91-1.10); PROTHROMBIN TIME 13.1 SECS (9.2-11.1)
[2023-07-29 05:23] LABS: CALCIUM, SERUM 7.3 mg/dL (8.5-10.1); MAGNESIUM 2.3 mg/dL (1.8-2.4); PHOSPHORUS 4.9 mg/dL (2.5-4.9); POTASSIUM 3.3 mmol/L (3.5-5.1)
[2023-07-29 05:25] LABS: BASOPHILS # (AUTO) 0.1 K/uL (0.0-0.2); BASOPHILS % (AUTO) 0.3 % (0.0-2.0); EOSINOPHILS # (AUTO) 0.2 K/uL (0.0-0.7); EOSINOPHILS % (AUTO) 0.8 % (0.0-6.0); LYMPHOCYTES # (AUTO) 1.8 K/uL (0.8-4.8); LYMPHOCYTES % (AUTO) 6.1 % (20.0-44.0); MEAN CORPUSCULAR HEMOGLOBIN 29 PG (26.0-33.0); MEAN CORPUSCULAR HGB CONC 32 g/dl (31.0-36.0); MEAN CORPUSCULAR VOLUME 91 fL (80-96); MONOCYTES # (AUTO) 3.3 K/uL (0.1-1.30); MONOCYTES % (AUTO) 11.2 % (2.0-12.0); NEUTROPHILS # (AUTO) 24.3 K/uL (1.8-8.9); NEUTROPHILS % (AUTO) 81.6 % (43.0-81.0); PLATELET COUNT (AUTO) 97 K/uL (150-450); RED BLOOD CELL COUNT(AUTO) 2.11 MIL/uL (4.5-6.0); RED CELL DISTRIBUTION WIDTH 16.5 % (11.5-15.0); WHITE BLOOD COUNT (AUTO) 29.7 K/uL (4.3-11.0)
[2023-07-29 05:26] LABS: HEMATOCRIT 19 % (39-51); HEMOGLOBIN 6.2 g/dL (13.5-17.5)
[2023-07-29 05:42] LABS: BAND % (MANUAL) 4 % (0.0-5.0); EOSINOPHILS % (MANUAL) 1 % (0-4); LYMPHOCYTES % (MANUAL) 5 % (16-48); METAMYELOCYTES % 7 % (0-0); MONOCYTES % (MANUAL) 8 % (0-11.0); MYELOCYTES % 14 % (0-0); NEUTROPHILS % (MANUAL) 61 (42-76)
[2023-07-29 05:43] LABS: ANISOCYTOSIS 1+
[2023-07-29] MEDS: IV 1/2NS 1000 ML 1,000 ML IV PRN ×2 (06:34→14:41)
[2023-07-29] MEDS: DOCUSATE SODIUM LIQ 100 MG/10 ML UDC GT SCH ×2 (08:09→17:53)
[2023-07-29] MEDS: PROSTAT (PYXIS) 30 ML UDC GT SCH ×2 (08:09→17:54)
[2023-07-29] MEDS: LACOSAMIDE 100 MG in IV NS 0.9% 50 ML IV SCH ×2 (08:09→20:00)
[2023-07-29] MEDS: ASPIRIN 325 MG TABLET GT SCH (08:09)
[2023-07-29] MEDS: LEVOTHYROXINE SODIUM 50 MCG TABLET GT SCH (08:10)
[2023-07-29] MEDS: DAKINS QUARTER STRENGTH (0.125%) 480 ML BOTTLE TOP SCH ×2 (08:48→08:49)
[2023-07-29] MEDS: CHLORHEXIDINE GLUCONATE 15 ML UDC MM SCH ×2 (08:51→22:21)
[2023-07-29] MEDS: PANTOPRAZOLE 40 MG VIAL IV SCH (08:51)
[2023-07-29] MEDS: FAMOTIDINE/PF INJ 20 MG/2 ML VIAL IV SCH (08:51)
[2023-07-29] MEDS: LEVETIRACETAM (500MG) 1,500 MG in IV NS 0.9% 85 ML IV SCH ×2 (09:58→22:14)
[2023-07-29] MEDS: MEROPENEM 1 G in IV NS 0.9% 100 ML IV SCH ×2 (10:51→23:31)
[2023-07-29] MEDS ORDERED: ANESTHESIA TRAY IN PYXIS 1 EA TRAY MC ONE (11:08)
[2023-07-29] MEDS: POTASSIUM CL. PREMIX PERIPHER. 50 ML IV SCH ×2 (11:39→13:06)
[2023-07-29] MEDS: FERROUS SULFATE UDC 300 MG/5 ML UDC GT SCH (17:53)
[2023-07-29] MEDS: CHOLECALCIFEROL 1,000 UNIT TABLET (VIT D3) GT SCH (17:54)
[2023-07-29] MEDS: VANCOMYCIN 1 GM in IV D5W 250ml IV SCH (18:27)
[2023-07-29] MEDS ORDERED: JEVITY 1.2 CAL 1,000 ML BOTTLE GT PRN (18:30)
[2023-07-29] MEDS: ATORVASTATIN 40 MG TABLET GT SCH (22:21)
[2023-07-30] VITALS (50 sets, daily range): BP systolic 88–158; BP diastolic 54–80; TEMP 94.4–97.7; O2SAT 98–100
[2023-07-30] MEDS: PANTOPRAZOLE 40 MG VIAL IV SCH ×3 (00:09→20:56)
[2023-07-30] MEDS: FAMOTIDINE/PF INJ 20 MG/2 ML VIAL IV SCH ×3 (00:09→20:56)
[2023-07-30] MEDS: FLUCONAZOLE IN NS 100 MG in PREMIX 1 EA IV SCH ×4 (00:13→23:33)
[2023-07-30] MEDS: VALPROATE 1,000 MG in IV D5W 100 ML IV SCH ×3 (04:31→20:56)
[2023-07-30 04:56] LABS: BASOPHILS # (AUTO) 0.1 K/uL (0.0-0.2); BASOPHILS % (AUTO) 0.2 % (0.0-2.0); EOSINOPHILS # (AUTO) 0.2 K/uL (0.0-0.7); EOSINOPHILS % (AUTO) 0.8 % (0.0-6.0); HEMATOCRIT 24 % (39-51); HEMOGLOBIN 7.8 g/dL (13.5-17.5); LYMPHOCYTES # (AUTO) 1.8 K/uL (0.8-4.8); LYMPHOCYTES % (AUTO) 6.8 % (20.0-44.0); MEAN CORPUSCULAR HEMOGLOBIN 29 PG (26.0-33.0); MEAN CORPUSCULAR HGB CONC 33 g/dl (31.0-36.0); MEAN CORPUSCULAR VOLUME 90 fL (80-96); MONOCYTES # (AUTO) 2.3 K/uL (0.1-1.30); MONOCYTES % (AUTO) 8.5 % (2.0-12.0); NEUTROPHILS # (AUTO) 22.2 K/uL (1.8-8.9); NEUTROPHILS % (AUTO) 83.7 % (43.0-81.0); PLATELET COUNT (AUTO) 82 K/uL (150-450); RED BLOOD CELL COUNT(AUTO) 2.65 MIL/uL (4.5-6.0); RED CELL DISTRIBUTION WIDTH 16.6 % (11.5-15.0); WHITE BLOOD COUNT (AUTO) 26.5 K/uL (4.3-11.0)
[2023-07-30 05:11] LABS: CALCIUM, SERUM 7.3 mg/dL (8.5-10.1); CARBON DIOXIDE 22 mmol/L (21-32); CHLORIDE 111 mmol/L (98-107); CREATININE 0.8 mg/dL (0.6-1.3); GLUCOSE 116 mg/dL (74-106); MAGNESIUM 2.1 mg/dL (1.8-2.4); PHOSPHORUS 3.9 mg/dL (2.5-4.9); POTASSIUM 3.1 mmol/L (3.5-5.1); SODIUM SERUM 143 mmol/L (136-145); UREA NITROGEN, BLOOD 75 mg/dL (7-18)
[2023-07-30 05:49] LABS: BAND % (MANUAL) 4 % (0.0-5.0); EOSINOPHILS % (MANUAL) 3 % (0-4); LYMPHOCYTES % (MANUAL) 7 % (16-48); METAMYELOCYTES % 4 % (0-0); MONOCYTES % (MANUAL) 2 % (0-11.0); MYELOCYTES % 9 % (0-0); NEUTROPHILS % (MANUAL) 71 (42-76)
[2023-07-30 05:50] LABS: ANISOCYTOSIS 1+; OVALOCYTES 1+; PLATELET ESTIMATE ADEQUATE
[2023-07-30] MEDS: LEVOTHYROXINE SODIUM 50 MCG TABLET GT SCH (09:01)
[2023-07-30] MEDS: DOCUSATE SODIUM LIQ 100 MG/10 ML UDC GT SCH ×2 (09:01→18:25)
[2023-07-30] MEDS: ASPIRIN 325 MG TABLET GT SCH (09:01)
[2023-07-30] MEDS: CHLORHEXIDINE GLUCONATE 15 ML UDC MM SCH ×2 (09:01→20:56)
[2023-07-30] MEDS: POTASSIUM CL. PREMIX PERIPHER. 50 ML IV SCH ×4 (09:02→14:58)
[2023-07-30] MEDS: LEVETIRACETAM (500MG) 1,500 MG in IV NS 0.9% 85 ML IV SCH ×2 (09:14→20:56)
[2023-07-30] MEDS: DAKINS QUARTER STRENGTH (0.125%) 480 ML BOTTLE TOP SCH ×2 (09:15)
[2023-07-30] MEDS: LACOSAMIDE 100 MG in IV NS 0.9% 50 ML IV SCH ×2 (10:44→19:49)
[2023-07-30] MEDS: PROSTAT (PYXIS) 30 ML UDC GT SCH ×4 (10:45→18:59)
[2023-07-30] MEDS ORDERED: POTASSIUM CHLORIDE 20 MEQ POWDER PACKET GT ONE (11:30)
[2023-07-30] MEDS: MEROPENEM 1 G in IV NS 0.9% 100 ML IV SCH ×2 (12:20→20:56)
[2023-07-30 13:09] LABS: *SPE A/G RATIO 0.3 (0.7-1.7); *SPE ALBUMIN 1.2 g/dL (2.9-4.4); *SPE ALPHA-1-GLOBULIN 0.5 g/dL (0.0-0.4); *SPE ALPHA-2-GLOBULIN 1.3 g/dL (0.4-1.0); *SPE BETA GLOBULIN 0.8 g/dL (0.7-1.3); *SPE GLOBULIN, TOTAL 4.7 g/dL (2.2-3.9); *SPE M-SPIKE Not Observed g/dL (Not Observed); *SPE PROTEIN TOTAL 5.9 g/dL (6.0-8.5); *SPEGAMMA GLOBULIN 2.1 g/dL (0.4-1.8)
[2023-07-30] MEDS: IV 1/2NS 1000 ML 1,000 ML IV PRN (16:49)
[2023-07-30] MEDS: CHOLECALCIFEROL 1,000 UNIT TABLET (VIT D3) GT SCH (18:25)
[2023-07-30] MEDS: FERROUS SULFATE UDC 300 MG/5 ML UDC GT SCH (18:25)
[2023-07-30] MEDS: ARGININE/GLUTAMINE/CALCIUM BMB 1 EACH POWD.PACK GT SCH ×2 (18:25→18:26)
[2023-07-30] MEDS: GLUCERNA 1.2 1,000 ML BOTTLE NG PRN (19:52)
[2023-07-30] MEDS: ATORVASTATIN 40 MG TABLET GT SCH (21:03)
[2023-07-31] VITALS: BP 115/66; TEMP 97.2; O2SAT 100
[2023-07-31 04:00] VITALS: BP 120/70; TEMP 97.3; O2SAT 100
[2023-07-31] MEDS: VALPROATE 1,000 MG in IV D5W 100 ML IV SCH ×3 (04:11→20:53)
[2023-07-31] MEDS: VANCOMYCIN 1 GM in IV D5W 250ml IV SCH (05:00)
[2023-07-31 07:37] LABS: CALCIUM, SERUM 7.7 mg/dL (8.5-10.1); CREATININE 0.9 mg/dL (0.6-1.3); POTASSIUM 4.2 mmol/L (3.5-5.1)
[2023-07-31 08:00] VITALS: BP 104/65; TEMP 97.7; O2SAT 100
[2023-07-31] MEDS: PROSTAT (PYXIS) 30 ML UDC GT SCH (08:00)
[2023-07-31] MEDS: LACOSAMIDE 100 MG in IV NS 0.9% 50 ML IV SCH (08:00)
[2023-07-31] MEDS: DOCUSATE SODIUM LIQ 100 MG/10 ML UDC GT SCH ×2 (09:10→16:21)
[2023-07-31] MEDS: LEVOTHYROXINE SODIUM 50 MCG TABLET GT SCH (09:11)
[2023-07-31] MEDS: PANTOPRAZOLE 40 MG VIAL IV SCH (09:11)
[2023-07-31] MEDS: MEROPENEM 1 G in IV NS 0.9% 100 ML IV SCH ×3 (09:11→20:51)
[2023-07-31] MEDS: ASPIRIN 325 MG TABLET GT SCH (09:12)
[2023-07-31] MEDS: DAKINS QUARTER STRENGTH (0.125%) 480 ML BOTTLE TOP SCH ×2 (09:13→09:14)
[2023-07-31] MEDS: CHLORHEXIDINE GLUCONATE 15 ML UDC MM SCH ×2 (09:13→20:51)
[2023-07-31] MEDS: ARGININE/GLUTAMINE/CALCIUM BMB 1 EACH POWD.PACK GT SCH ×2 (09:13→17:09)
[2023-07-31] MEDS: PROSOURCE / PROSTAT (PYXIS) 30 ML UDC GT SCH ×2 (10:52→16:22)
[2023-07-31 12:00] VITALS: BP 102/67; TEMP 97.7; O2SAT 100
[2023-07-31 16:00] VITALS: BP 117/57; TEMP 97.3; O2SAT 100
[2023-07-31] MEDS: FERROUS SULFATE UDC 300 MG/5 ML UDC GT SCH (17:07)
[2023-07-31] MEDS: CHOLECALCIFEROL 1,000 UNIT TABLET (VIT D3) GT SCH (17:09)
[2023-07-31 20:00] VITALS: BP 99/98; TEMP 97.5; O2SAT 100
[2023-07-31] MEDS: GLUCERNA 1.2 1,000 ML BOTTLE NG PRN (20:46)
[2023-07-31] MEDS: LEVETIRACETAM SOL (5 ML) 100 MG/ML UDC GT SCH (20:51)
[2023-07-31] MEDS: PANTOPRAZOLE 40 MG/PACK PACK GT SCH (20:51)
[2023-07-31] MEDS: LACOSAMIDE ORAL SOLN 50 MG/5 ML UDC PO SCH (21:16)
[2023-07-31] MEDS: ATORVASTATIN 40 MG TABLET GT SCH (22:05)
[2023-07-31] MEDS: FLUCONAZOLE (100 MG) 100 MG TABLET GT SCH (22:05)
[2023-08-01] VITALS: BP 100/61; TEMP 97.5; O2SAT 100
[2023-08-01 04:00] VITALS: BP 115/63; TEMP 96.6; O2SAT 100
[2023-08-01] MEDS: MEROPENEM 1 G in IV NS 0.9% 100 ML IV SCH ×3 (04:05→20:04)
[2023-08-01] MEDS: VALPROATE 1,000 MG in IV D5W 100 ML IV SCH ×3 (04:05→20:04)
[2023-08-01 06:06] LABS: BASOPHILS % (AUTO) 0.1 % (0.0-2.0); EOSINOPHILS # (AUTO) 0.1 K/uL (0.0-0.7); EOSINOPHILS % (AUTO) 0.4 % (0.0-6.0); HEMATOCRIT 23 % (39-51); HEMOGLOBIN 7.1 g/dL (13.5-17.5); LYMPHOCYTES # (AUTO) 2.3 K/uL (0.8-4.8); MEAN CORPUSCULAR HEMOGLOBIN 29 PG (26.0-33.0); MEAN CORPUSCULAR HGB CONC 31 g/dl (31.0-36.0); MEAN CORPUSCULAR VOLUME 93 fL (80-96); MONOCYTES # (AUTO) 4.1 K/uL (0.1-1.30); MONOCYTES % (AUTO) 10.6 % (2.0-12.0); NEUTROPHILS # (AUTO) 31.7 K/uL (1.8-8.9); NEUTROPHILS % (AUTO) 82.9 % (43.0-81.0); PLATELET COUNT (AUTO) 135 K/uL (150-450); RED BLOOD CELL COUNT(AUTO) 2.47 MIL/uL (4.5-6.0); RED CELL DISTRIBUTION WIDTH 16.9 % (11.5-15.0)
[2023-08-01 06:24] LABS: CALCIUM, SERUM 7.6 mg/dL (8.5-10.1); CARBON DIOXIDE 21 mmol/L (21-32); CHLORIDE 113 mmol/L (98-107); CREATININE 0.7 mg/dL (0.6-1.3); GLUCOSE 114 mg/dL (74-106); MAGNESIUM 1.9 mg/dL (1.8-2.4); PHOSPHORUS 3.6 mg/dL (2.5-4.9); SODIUM SERUM 143 mmol/L (136-145); UREA NITROGEN, BLOOD 62 mg/dL (7-18)
[2023-08-01 07:01] LABS: WHITE BLOOD COUNT (AUTO) 38.1 K/uL (4.3-11.0)
[2023-08-01 09:45] VITALS: BP 118/63; TEMP 97.5; O2SAT 100
[2023-08-01] MEDS: LEVETIRACETAM SOL (5 ML) 100 MG/ML UDC GT SCH ×2 (09:48→20:20)
[2023-08-01] MEDS: DOCUSATE SODIUM LIQ 100 MG/10 ML UDC GT SCH ×2 (09:48→17:06)
[2023-08-01] MEDS: ASPIRIN 325 MG TABLET GT SCH (09:49)
[2023-08-01] MEDS: LEVOTHYROXINE SODIUM 50 MCG TABLET GT SCH (09:49)
[2023-08-01] MEDS: CHLORHEXIDINE GLUCONATE 15 ML UDC MM SCH ×2 (09:49→20:20)
[2023-08-01] MEDS: PANTOPRAZOLE 40 MG/PACK PACK GT SCH ×2 (09:49→20:20)
[2023-08-01] MEDS: LACOSAMIDE ORAL SOLN 50 MG/5 ML UDC PO SCH ×2 (09:55→20:23)
[2023-08-01] MEDS: PROSOURCE / PROSTAT (PYXIS) 30 ML UDC GT SCH ×2 (09:56→17:06)
[2023-08-01] MEDS: ARGININE/GLUTAMINE/CALCIUM BMB 1 EACH POWD.PACK GT SCH ×2 (09:57→17:06)
[2023-08-01] MEDS: DAKINS QUARTER STRENGTH (0.125%) 480 ML BOTTLE TOP SCH ×2 (09:58→09:59)
[2023-08-01 11:09] LABS: ANISOCYTOSIS 1+; BAND % (MANUAL) 2 % (0.0-5.0); BASOPHILS % (MANUAL) 0 % (0.0-2.0); EOSINOPHILS % (MANUAL) 0 % (0-4); HYPOCHROMASIA 1+; LYMPHOCYTES % (MANUAL) 6 % (16-48); MONOCYTES % (MANUAL) 7 % (0-11.0); NEUTROPHILS % (MANUAL) 85 (42-76); PLATELET ESTIMATE ADEQUATE; STOMATOCYTES 1+
[2023-08-01 12:00] VITALS: BP 100/64; TEMP 98.1; O2SAT 100
[2023-08-01 16:40] VITALS: BP 105/97; TEMP 97.5; O2SAT 100
[2023-08-01] MEDS: GLUCERNA 1.2 1,000 ML BOTTLE NG PRN (17:06)
[2023-08-01] MEDS: CHOLECALCIFEROL 1,000 UNIT TABLET (VIT D3) GT SCH (17:06)
[2023-08-01] MEDS: FERROUS SULFATE UDC 300 MG/5 ML UDC GT SCH (17:06)
[2023-08-01] MEDS: VANCOMYCIN 1 GM in IV D5W 250ml IV SCH (18:00)
[2023-08-01 20:00] VITALS: BP 108/57; TEMP 97.6; O2SAT 100
[2023-08-01] MEDS: ATORVASTATIN 40 MG TABLET GT SCH (21:24)
[2023-08-01] MEDS: FLUCONAZOLE (100 MG) 100 MG TABLET GT SCH (23:25)
[2023-08-02] VITALS (9 sets, daily range): BP systolic 90–112; BP diastolic 50–68; TEMP 96.4–98.4; O2SAT 100
[2023-08-02] MEDS: VALPROATE 1,000 MG in IV D5W 100 ML IV SCH ×3 (04:38→21:33)
[2023-08-02] MEDS: MEROPENEM 1 G in IV NS 0.9% 100 ML IV SCH ×3 (04:38→21:32)
[2023-08-02] MEDS: VANCOMYCIN 1 GM in IV D5W 250ml IV SCH (06:00)
[2023-08-02 07:06] LABS: BASOPHILS # (AUTO) 0.1 K/uL (0.0-0.2); BASOPHILS % (AUTO) 0.3 % (0.0-2.0); EOSINOPHILS # (AUTO) 0.2 K/uL (0.0-0.7); EOSINOPHILS % (AUTO) 0.5 % (0.0-6.0); HEMATOCRIT 21 % (39-51); LYMPHOCYTES # (AUTO) 2.5 K/uL (0.8-4.8); LYMPHOCYTES % (AUTO) 7.2 % (20.0-44.0); MEAN CORPUSCULAR HEMOGLOBIN 29 PG (26.0-33.0); MEAN CORPUSCULAR HGB CONC 31 g/dl (31.0-36.0); MEAN CORPUSCULAR VOLUME 95 fL (80-96); MONOCYTES % (AUTO) 11.5 % (2.0-12.0); NEUTROPHILS # (AUTO) 28.5 K/uL (1.8-8.9); NEUTROPHILS % (AUTO) 80.5 % (43.0-81.0); PLATELET COUNT (AUTO) 179 K/uL (150-450); RED BLOOD CELL COUNT(AUTO) 2.26 MIL/uL (4.5-6.0); RED CELL DISTRIBUTION WIDTH 17.5 % (11.5-15.0)
[2023-08-02 07:12] LABS: HEMOGLOBIN 6.5 g/dL (13.5-17.5); WHITE BLOOD COUNT (AUTO) 35.3 K/uL (4.3-11.0)
[2023-08-02 07:15] LABS: INR 1.12 (0.91-1.10); PROTHROMBIN TIME 11.8 SECS (9.2-11.1)
[2023-08-02 07:26] LABS: CREATININE 0.7 mg/dL (0.6-1.3); POTASSIUM 4.5 mmol/L (3.5-5.1)
[2023-08-02] MEDS ORDERED: LIDOCAINE 1%-EPI 1:100,000 50 ML VIAL IJ ONE (07:30)
[2023-08-02] MEDS ORDERED: SILVER NITRATE APPLICATOR 1 EA BOX TP SCH (07:30)
[2023-08-02] MEDS ORDERED: DIATR MEGLU/DIATRIZOATE SODIUM 30 ML BOTTLE (GASTROGRAPHIN) ONE (08:08)
[2023-08-02] MEDS: PROSOURCE / PROSTAT (PYXIS) 30 ML UDC GT SCH ×2 (10:19→18:11)
[2023-08-02] MEDS: DOCUSATE SODIUM LIQ 100 MG/10 ML UDC GT SCH ×2 (10:20→18:11)
[2023-08-02] MEDS: LEVETIRACETAM SOL (5 ML) 100 MG/ML UDC GT SCH ×2 (10:20→20:51)
[2023-08-02] MEDS: PANTOPRAZOLE 40 MG/PACK PACK GT SCH ×2 (10:21→20:51)
[2023-08-02] MEDS: LEVOTHYROXINE SODIUM 50 MCG TABLET GT SCH (10:21)
[2023-08-02] MEDS: CHLORHEXIDINE GLUCONATE 15 ML UDC MM SCH ×2 (10:21→20:52)
[2023-08-02] MEDS: ASPIRIN 325 MG TABLET GT SCH (10:21)
[2023-08-02] MEDS: LACOSAMIDE ORAL SOLN 50 MG/5 ML UDC PO SCH ×2 (10:27→20:52)
[2023-08-02] MEDS: METOCLOPRAMIDE HCL 10 MG/2 ML VIAL IV SCH ×3 (10:27→21:57)
[2023-08-02] MEDS: ARGININE/GLUTAMINE/CALCIUM BMB 1 EACH POWD.PACK GT SCH ×2 (10:28→18:12)
[2023-08-02 10:54] LABS: ANISOCYTOSIS 1+; BAND % (MANUAL) 2 % (0.0-5.0); BASOPHILS % (MANUAL) 0 % (0.0-2.0); EOSINOPHILS % (MANUAL) 1 % (0-4); HYPOCHROMASIA 1+; LYMPHOCYTES % (MANUAL) 7 % (16-48); MONOCYTES % (MANUAL) 8 % (0-11.0); NEUTROPHILS % (MANUAL) 82 (42-76); OVALOCYTES 1+; PLATELET ESTIMATE ADEQUATE
[2023-08-02] MEDS: DAKINS QUARTER STRENGTH (0.125%) 480 ML BOTTLE TOP SCH ×2 (11:13)
[2023-08-02] MEDS: CHOLECALCIFEROL 1,000 UNIT TABLET (VIT D3) GT SCH (18:11)
[2023-08-02] MEDS: FERROUS SULFATE UDC 300 MG/5 ML UDC GT SCH (18:11)
[2023-08-02] MEDS: ATORVASTATIN 40 MG TABLET GT SCH (21:57)
[2023-08-03] VITALS: BP_SYST 101; BP_SYST 94; BP_DIAS 60; BP_DIAS 61; TEMP 97.8; TEMP 98.1; O2SAT 100
[2023-08-03 04:00] VITALS: BP 94/61; TEMP 98.1; O2SAT 100
[2023-08-03] MEDS: MEROPENEM 1 G in IV NS 0.9% 100 ML IV SCH ×3 (05:43→21:57)
[2023-08-03] MEDS: METOCLOPRAMIDE HCL 10 MG/2 ML VIAL IV SCH ×4 (05:43→21:57)
[2023-08-03] MEDS: VALPROATE 1,000 MG in IV D5W 100 ML IV SCH ×3 (05:43→21:57)
[2023-08-03 06:00] LABS: BASOPHILS # (AUTO) 0.1 K/uL (0.0-0.2); BASOPHILS % (AUTO) 0.2 % (0.0-2.0); EOSINOPHILS # (AUTO) 0.2 K/uL (0.0-0.7); EOSINOPHILS % (AUTO) 0.7 % (0.0-6.0); HEMATOCRIT 26 % (39-51); HEMOGLOBIN 8.4 g/dL (13.5-17.5); LYMPHOCYTES # (AUTO) 1.9 K/uL (0.8-4.8); LYMPHOCYTES % (AUTO) 7.3 % (20.0-44.0); MEAN CORPUSCULAR HEMOGLOBIN 30 PG (26.0-33.0); MEAN CORPUSCULAR HGB CONC 32 g/dl (31.0-36.0); MEAN CORPUSCULAR VOLUME 94 fL (80-96); MONOCYTES # (AUTO) 3.2 K/uL (0.1-1.30); MONOCYTES % (AUTO) 12.1 % (2.0-12.0); NEUTROPHILS % (AUTO) 79.7 % (43.0-81.0); PLATELET COUNT (AUTO) 235 K/uL (150-450); RED BLOOD CELL COUNT(AUTO) 2.81 MIL/uL (4.5-6.0); RED CELL DISTRIBUTION WIDTH 16.6 % (11.5-15.0); WHITE BLOOD COUNT (AUTO) 26.3 K/uL (4.3-11.0)
[2023-08-03 06:09] LABS: CALCIUM, SERUM 8.7 mg/dL (8.5-10.1); CREATININE 0.7 mg/dL (0.6-1.3); POTASSIUM 4.3 mmol/L (3.5-5.1)
[2023-08-03 08:00] VITALS: BP 99/54; TEMP 98.1; O2SAT 100
[2023-08-03] MEDS: ARGININE/GLUTAMINE/CALCIUM BMB 1 EACH POWD.PACK GT SCH ×2 (08:16→17:09)
[2023-08-03] MEDS: PROSOURCE / PROSTAT (PYXIS) 30 ML UDC GT SCH ×2 (08:16→16:25)
[2023-08-03] MEDS: DOCUSATE SODIUM LIQ 100 MG/10 ML UDC GT SCH ×2 (09:21→16:25)
[2023-08-03] MEDS: CHLORHEXIDINE GLUCONATE 15 ML UDC MM SCH ×2 (09:21→21:57)
[2023-08-03] MEDS: ASPIRIN 325 MG TABLET GT SCH (09:21)
[2023-08-03] MEDS: PANTOPRAZOLE 40 MG/PACK PACK GT SCH ×2 (09:21→21:57)
[2023-08-03] MEDS: LEVOTHYROXINE SODIUM 50 MCG TABLET GT SCH (09:21)
[2023-08-03] MEDS: LEVETIRACETAM SOL (5 ML) 100 MG/ML UDC GT SCH ×2 (09:29→21:57)
[2023-08-03] MEDS: LACOSAMIDE ORAL SOLN 50 MG/5 ML UDC PO SCH ×2 (09:29→21:57)
[2023-08-03] MEDS: DAKINS QUARTER STRENGTH (0.125%) 480 ML BOTTLE TOP SCH ×2 (09:32)
[2023-08-03 12:00] VITALS: BP 116/61; TEMP 96.4; O2SAT 100
[2023-08-03 16:00] VITALS: BP 112/63; TEMP 96; O2SAT 100
[2023-08-03] MEDS: CHOLECALCIFEROL 1,000 UNIT TABLET (VIT D3) GT SCH (17:08)
[2023-08-03] MEDS: FERROUS SULFATE UDC 300 MG/5 ML UDC GT SCH (17:09)
[2023-08-03 20:00] VITALS: BP 110/47; TEMP 96; O2SAT 100
[2023-08-03] MEDS: ATORVASTATIN 40 MG TABLET GT SCH (21:58)
[2023-08-04] VITALS: BP 108/50; TEMP 98; O2SAT 100
[2023-08-04 04:00] VITALS: BP 115/65; TEMP 98
[2023-08-04] MEDS: METOCLOPRAMIDE HCL 10 MG/2 ML VIAL IV SCH ×4 (05:07→23:51)
[2023-08-04] MEDS: MEROPENEM 1 G in IV NS 0.9% 100 ML IV SCH ×3 (05:08→21:19)
[2023-08-04] MEDS: VALPROATE 1,000 MG in IV D5W 100 ML IV SCH ×3 (05:08→21:18)
[2023-08-04 05:45] LABS: CALCIUM, SERUM 8.8 mg/dL (8.5-10.1); CARBON DIOXIDE 22 mmol/L (21-32); CHLORIDE 116 mmol/L (98-107); CREATININE 0.8 mg/dL (0.6-1.3); GLUCOSE 105 mg/dL (74-106); POTASSIUM 4.8 mmol/L (3.5-5.1); SODIUM SERUM 147 mmol/L (136-145); UREA NITROGEN, BLOOD 61 mg/dL (7-18)
[2023-08-04] MEDS: VANCOMYCIN 1 GM in IV D5W 250ml IV SCH (06:33)
[2023-08-04 08:00] VITALS: BP 99/58; TEMP 99.1; O2SAT 100
[2023-08-04] MEDS: ASPIRIN 325 MG TABLET GT SCH (09:44)
[2023-08-04] MEDS: LEVOTHYROXINE SODIUM 50 MCG TABLET GT SCH (09:44)
[2023-08-04] MEDS: PANTOPRAZOLE 40 MG/PACK PACK GT SCH ×2 (09:45→21:00)
[2023-08-04] MEDS: LACOSAMIDE ORAL SOLN 50 MG/5 ML UDC PO SCH ×2 (09:45→21:00)
[2023-08-04] MEDS: CHLORHEXIDINE GLUCONATE 15 ML UDC MM SCH ×3 (09:45→23:50)
[2023-08-04] MEDS: DOCUSATE SODIUM LIQ 100 MG/10 ML UDC GT SCH ×2 (09:45→17:00)
[2023-08-04] MEDS: LEVETIRACETAM SOL (5 ML) 100 MG/ML UDC GT SCH ×2 (09:45→21:00)
[2023-08-04] MEDS: PROSOURCE / PROSTAT (PYXIS) 30 ML UDC GT SCH ×2 (09:46→17:00)
[2023-08-04] MEDS: ARGININE/GLUTAMINE/CALCIUM BMB 1 EACH POWD.PACK GT SCH ×2 (09:46→17:27)
[2023-08-04] MEDS: DAKINS QUARTER STRENGTH (0.125%) 480 ML BOTTLE TOP SCH ×2 (10:29)
[2023-08-04 11:16] LABS: BASOPHILS # (AUTO) 0.2 K/uL (0.0-0.2); BASOPHILS % (AUTO) 0.5 % (0.0-2.0); EOSINOPHILS # (AUTO) 0.2 K/uL (0.0-0.7); EOSINOPHILS % (AUTO) 0.5 % (0.0-6.0); HEMATOCRIT 31 % (39-51); HEMOGLOBIN 9.3 g/dL (13.5-17.5); LYMPHOCYTES # (AUTO) 1.9 K/uL (0.8-4.8); LYMPHOCYTES % (AUTO) 5.5 % (20.0-44.0); MEAN CORPUSCULAR HEMOGLOBIN 30 PG (26.0-33.0); MEAN CORPUSCULAR HGB CONC 31 g/dl (31.0-36.0); MEAN CORPUSCULAR VOLUME 98 fL (80-96); MONOCYTES # (AUTO) 4.8 K/uL (0.1-1.30); MONOCYTES % (AUTO) 13.7 % (2.0-12.0); NEUTROPHILS # (AUTO) 28.3 K/uL (1.8-8.9); NEUTROPHILS % (AUTO) 79.8 % (43.0-81.0); PLATELET COUNT (AUTO) 379 K/uL (150-450); RED BLOOD CELL COUNT(AUTO) 3.11 MIL/uL (4.5-6.0); RED CELL DISTRIBUTION WIDTH 17.6 % (11.5-15.0)
[2023-08-04 11:29] LABS: PHOSPHORUS 3.3 mg/dL (2.5-4.9)
[2023-08-04 11:35] LABS: WHITE BLOOD COUNT (AUTO) 35.4 K/uL (4.3-11.0)
[2023-08-04 12:00] VITALS: BP 105/65; TEMP 98.6; O2SAT 100
[2023-08-04] MEDS ORDERED: IV D5W 1,000 ML IV SCH (13:30)
[2023-08-04] MEDS: IV 1/2NS 1000 ML 1,000 ML IV SCH (14:34)
[2023-08-04 15:15] LABS: BAND % (MANUAL) 14 % (0.0-5.0); EOSINOPHILS % (MANUAL) 1 % (0-4); LYMPHOCYTES % (MANUAL) 4 % (16-48); MONOCYTES % (MANUAL) 8 % (0-11.0); MYELOCYTES % 2 % (0-0); NEUTROPHILS % (MANUAL) 71 (42-76); PLATELET ESTIMATE ADEQU
[2023-08-04 16:00] VITALS: BP 101/66; TEMP 98.4; O2SAT 100
[2023-08-04] MEDS ORDERED: IOHEXOL-300 100 ML VIAL IV ONE (16:47)
[2023-08-04] MEDS: FERROUS SULFATE UDC 300 MG/5 ML UDC GT SCH (17:26)
[2023-08-04] MEDS: CHOLECALCIFEROL 1,000 UNIT TABLET (VIT D3) GT SCH (17:27)
[2023-08-04 20:00] VITALS: BP 112/65; TEMP 96.4; O2SAT 100
[2023-08-04] MEDS: ATORVASTATIN 40 MG TABLET GT SCH (22:00)
[2023-08-05] VITALS (7 sets, daily range): BP systolic 93–130; BP diastolic 55–72; TEMP 94–97.7; O2SAT 98–100
[2023-08-05] MEDS: METOCLOPRAMIDE HCL 10 MG/2 ML VIAL IV SCH ×4 (04:00→22:20)
[2023-08-05] MEDS: MEROPENEM 1 G in IV NS 0.9% 100 ML IV SCH ×3 (06:33→20:42)
[2023-08-05] MEDS: VALPROATE 1,000 MG in IV D5W 100 ML IV SCH ×3 (06:40→20:42)
[2023-08-05 06:50] LABS: BASOPHILS # (AUTO) 0.1 K/uL (0.0-0.2); BASOPHILS % (AUTO) 0.4 % (0.0-2.0); EOSINOPHILS # (AUTO) 0.1 K/uL (0.0-0.7); EOSINOPHILS % (AUTO) 0.6 % (0.0-6.0); HEMATOCRIT 28 % (39-51); HEMOGLOBIN 8.3 g/dL (13.5-17.5); LYMPHOCYTES # (AUTO) 2.2 K/uL (0.8-4.8); LYMPHOCYTES % (AUTO) 12.2 % (20.0-44.0); MEAN CORPUSCULAR HEMOGLOBIN 30 PG (26.0-33.0); MEAN CORPUSCULAR HGB CONC 29 g/dl (31.0-36.0); MEAN CORPUSCULAR VOLUME 101 fL (80-96); MONOCYTES # (AUTO) 1.9 K/uL (0.1-1.30); MONOCYTES % (AUTO) 10.6 % (2.0-12.0); NEUTROPHILS # (AUTO) 13.8 K/uL (1.8-8.9); NEUTROPHILS % (AUTO) 76.2 % (43.0-81.0); PLATELET COUNT (AUTO) 321 K/uL (150-450); RED BLOOD CELL COUNT(AUTO) 2.82 MIL/uL (4.5-6.0); RED CELL DISTRIBUTION WIDTH 17.8 % (11.5-15.0); WHITE BLOOD COUNT (AUTO) 18.1 K/uL (4.3-11.0)
[2023-08-05 07:09] LABS: CALCIUM, SERUM 8.7 mg/dL (8.5-10.1); CREATININE 0.7 mg/dL (0.6-1.3); MAGNESIUM 2.4 mg/dL (1.8-2.4); PHOSPHORUS 3.5 mg/dL (2.5-4.9); POTASSIUM 4.7 mmol/L (3.5-5.1)
[2023-08-05] MEDS: ARGININE/GLUTAMINE/CALCIUM BMB 1 EACH POWD.PACK GT SCH ×2 (08:00→17:11)
[2023-08-05] MEDS: PROSOURCE / PROSTAT (PYXIS) 30 ML UDC GT SCH ×2 (08:00→16:12)
[2023-08-05] MEDS: LEVOTHYROXINE SODIUM 50 MCG TABLET GT SCH (08:36)
[2023-08-05] MEDS: LEVETIRACETAM SOL (5 ML) 100 MG/ML UDC GT SCH ×3 (08:36→20:54)
[2023-08-05] MEDS: PANTOPRAZOLE 40 MG/PACK PACK GT SCH ×3 (08:36→20:56)
[2023-08-05] MEDS: DOCUSATE SODIUM LIQ 100 MG/10 ML UDC GT SCH ×2 (08:36→16:12)
[2023-08-05] MEDS: LACOSAMIDE ORAL SOLN 50 MG/5 ML UDC PO SCH ×3 (08:36→20:53)
[2023-08-05] MEDS: ASPIRIN 325 MG TABLET GT SCH (08:36)
[2023-08-05] MEDS: DAKINS QUARTER STRENGTH (0.125%) 480 ML BOTTLE TOP SCH ×2 (09:13→09:14)
[2023-08-05] MEDS: IV 1/2NS 1000 ML 1,000 ML IV SCH ×3 (09:19→19:34)
[2023-08-05] MEDS: FERROUS SULFATE UDC 300 MG/5 ML UDC GT SCH (17:11)
[2023-08-05] MEDS: CHOLECALCIFEROL 1,000 UNIT TABLET (VIT D3) GT SCH (17:11)
[2023-08-05] MEDS: CHLORHEXIDINE GLUCONATE 15 ML UDC MM SCH (20:41)
[2023-08-05] MEDS: ATORVASTATIN 40 MG TABLET GT SCH (22:00)
[2023-08-06 00:34] VITALS: BP 94/61; TEMP 98.1; O2SAT 100
[2023-08-06] MEDS: METOCLOPRAMIDE HCL 10 MG/2 ML VIAL IV SCH ×4 (03:31→21:42)
[2023-08-06] MEDS: MEROPENEM 1 G in IV NS 0.9% 100 ML IV SCH ×3 (03:54→21:26)
[2023-08-06] MEDS: VALPROATE 1,000 MG in IV D5W 100 ML IV SCH ×3 (04:20→21:34)
[2023-08-06 04:52] VITALS: BP 106/52; TEMP 98.2; O2SAT 100
[2023-08-06] MEDS: IV 1/2NS 1000 ML 1,000 ML IV SCH (05:15)
[2023-08-06] MEDS ORDERED: VANCOMYCIN 0.75 GM in IV D5W 250 ML IV SCH (06:00)
[2023-08-06] MEDS: ARGININE/GLUTAMINE/CALCIUM BMB 1 EACH POWD.PACK GT SCH ×2 (07:45→18:00)
[2023-08-06] MEDS: LEVOTHYROXINE SODIUM 50 MCG TABLET GT SCH (07:46)
[2023-08-06] MEDS: DOCUSATE SODIUM LIQ 100 MG/10 ML UDC GT SCH ×2 (07:46→17:00)
[2023-08-06] MEDS: ASPIRIN 325 MG TABLET GT SCH (07:46)
[2023-08-06] MEDS: PROSOURCE / PROSTAT (PYXIS) 30 ML UDC GT SCH ×2 (07:46→17:00)
[2023-08-06] MEDS: CHLORHEXIDINE GLUCONATE 15 ML UDC MM SCH ×2 (08:12→21:00)
[2023-08-06] MEDS: DAKINS QUARTER STRENGTH (0.125%) 480 ML BOTTLE TOP SCH ×2 (08:12→08:13)
[2023-08-06 08:33] VITALS: BP 100/62; TEMP 97.3; O2SAT 100
[2023-08-06] MEDS ORDERED: SODIUM POLYSTYRENE SULF. PWD 15 GM UDC GT ONE (09:30)
[2023-08-06] MEDS ORDERED: IV 1/2NS 1000 ML 1,000 ML IV PRN (09:48)
[2023-08-06 12:12] LABS: BASOPHILS # (AUTO) 0.1 K/uL (0.0-0.2); BASOPHILS % (AUTO) 0.4 % (0.0-2.0); EOSINOPHILS # (AUTO) 0.1 K/uL (0.0-0.7); EOSINOPHILS % (AUTO) 0.8 % (0.0-6.0); HEMATOCRIT 27 % (39-51); LYMPHOCYTES # (AUTO) 2.1 K/uL (0.8-4.8); LYMPHOCYTES % (AUTO) 14.8 % (20.0-44.0); MEAN CORPUSCULAR HEMOGLOBIN 30 PG (26.0-33.0); MEAN CORPUSCULAR HGB CONC 30 g/dl (31.0-36.0); MEAN CORPUSCULAR VOLUME 101 fL (80-96); MONOCYTES # (AUTO) 1.7 K/uL (0.1-1.30); MONOCYTES % (AUTO) 12.2 % (2.0-12.0); NEUTROPHILS # (AUTO) 10.1 K/uL (1.8-8.9); NEUTROPHILS % (AUTO) 71.8 % (43.0-81.0); PLATELET COUNT (AUTO) 326 K/uL (150-450); RED BLOOD CELL COUNT(AUTO) 2.68 MIL/uL (4.5-6.0); RED CELL DISTRIBUTION WIDTH 18.6 % (11.5-15.0); WHITE BLOOD COUNT (AUTO) 14.1 K/uL (4.3-11.0)
[2023-08-06 12:17] VITALS: BP 109/67; TEMP 97.5; O2SAT 100
[2023-08-06 12:27] LABS: CALCIUM, SERUM 8.3 mg/dL (8.5-10.1); CARBON DIOXIDE 18 mmol/L (21-32); CHLORIDE 116 mmol/L (98-107); CREATININE 0.7 mg/dL (0.6-1.3); GLUCOSE 68 mg/dL (74-106); MAGNESIUM 2.1 mg/dL (1.8-2.4); POTASSIUM 4.3 mmol/L (3.5-5.1); SODIUM SERUM 143 mmol/L (136-145); UREA NITROGEN, BLOOD 46 mg/dL (7-18)
[2023-08-06] MEDS ORDERED: IV D5/0.45 NACL 500 ML IV PRN (13:30)
[2023-08-06] MEDS ORDERED: IV D5/0.45 NACL 1,000 ML IV PRN (14:00)
[2023-08-06] MEDS: IV D5/0.45 NACL 1,000 ML IV PRN (14:14)
[2023-08-06 16:35] VITALS: BP 113/72; TEMP 97.3; O2SAT 100
[2023-08-06] MEDS: FERROUS SULFATE UDC 300 MG/5 ML UDC GT SCH (18:00)
[2023-08-06] MEDS: CHOLECALCIFEROL 1,000 UNIT TABLET (VIT D3) GT SCH (18:00)
[2023-08-06 20:00] VITALS: BP 111/68; TEMP 97; O2SAT 100
[2023-08-06] MEDS: LEVETIRACETAM SOL (5 ML) 100 MG/ML UDC GT SCH (21:00)
[2023-08-06] MEDS: PANTOPRAZOLE 40 MG/PACK PACK GT SCH (21:00)
[2023-08-06] MEDS: LACOSAMIDE ORAL SOLN 50 MG/5 ML UDC PO SCH (21:00)
[2023-08-06] MEDS: ATORVASTATIN 40 MG TABLET GT SCH (21:25)
[2023-08-07 02:00] VITALS: BP 114/73; TEMP 97; O2SAT 100
[2023-08-07 04:00] VITALS: BP 124/68; TEMP 97.2; O2SAT 100
[2023-08-07] MEDS: MEROPENEM 1 G in IV NS 0.9% 100 ML IV SCH ×2 (04:47→12:54)
[2023-08-07] MEDS: METOCLOPRAMIDE HCL 10 MG/2 ML VIAL IV SCH ×4 (04:47→22:08)
[2023-08-07] MEDS ORDERED: VALPROATE 500 MG/5 ML VIAL IV ONE (05:13)
[2023-08-07] MEDS: IV D5/0.45 NACL 1,000 ML IV PRN ×2 (05:23→20:53)
[2023-08-07] MEDS: VALPROATE 1,000 MG in IV D5W 100 ML IV SCH ×3 (05:25→20:44)
[2023-08-07 06:08] LABS: BASOPHILS % (AUTO) 0.3 % (0.0-2.0); EOSINOPHILS # (AUTO) 0.1 K/uL (0.0-0.7); EOSINOPHILS % (AUTO) 0.4 % (0.0-6.0); HEMATOCRIT 28 % (39-51); HEMOGLOBIN 8.7 g/dL (13.5-17.5); LYMPHOCYTES # (AUTO) 1.6 K/uL (0.8-4.8); MEAN CORPUSCULAR HEMOGLOBIN 30 PG (26.0-33.0); MEAN CORPUSCULAR HGB CONC 31 g/dl (31.0-36.0); MEAN CORPUSCULAR VOLUME 96 fL (80-96); MONOCYTES # (AUTO) 1.5 K/uL (0.1-1.30); MONOCYTES % (AUTO) 9.8 % (2.0-12.0); NEUTROPHILS # (AUTO) 12.4 K/uL (1.8-8.9); NEUTROPHILS % (AUTO) 79.5 % (43.0-81.0); PLATELET COUNT (AUTO) 364 K/uL (150-450); RED BLOOD CELL COUNT(AUTO) 2.92 MIL/uL (4.5-6.0); WHITE BLOOD COUNT (AUTO) 15.6 K/uL (4.3-11.0)
[2023-08-07 06:20] LABS: CALCIUM, SERUM 8.4 mg/dL (8.5-10.1); CREATININE 0.8 mg/dL (0.6-1.3); PHOSPHORUS 4.2 mg/dL (2.5-4.9); POTASSIUM 4.3 mmol/L (3.5-5.1)
[2023-08-07 08:00] VITALS: BP 113/71; TEMP 98.3; O2SAT 100
[2023-08-07] MEDS: PROSOURCE / PROSTAT (PYXIS) 30 ML UDC GT SCH ×2 (08:00→17:00)
[2023-08-07] MEDS: ARGININE/GLUTAMINE/CALCIUM BMB 1 EACH POWD.PACK GT SCH ×2 (08:00→18:00)
[2023-08-07] MEDS: LEVETIRACETAM SOL (5 ML) 100 MG/ML UDC GT SCH ×2 (09:00→20:41)
[2023-08-07] MEDS: PANTOPRAZOLE 40 MG/PACK PACK GT SCH ×2 (09:00→20:42)
[2023-08-07] MEDS: LEVOTHYROXINE SODIUM 50 MCG TABLET GT SCH (09:00)
[2023-08-07] MEDS: DOCUSATE SODIUM LIQ 100 MG/10 ML UDC GT SCH ×2 (09:00→17:00)
[2023-08-07] MEDS: ASPIRIN 325 MG TABLET GT SCH (09:00)
[2023-08-07] MEDS: LACOSAMIDE ORAL SOLN 50 MG/5 ML UDC PO SCH ×2 (09:00→20:42)
[2023-08-07] MEDS: DAKINS QUARTER STRENGTH (0.125%) 480 ML BOTTLE TOP SCH ×2 (09:25→09:37)
[2023-08-07] MEDS: CHLORHEXIDINE GLUCONATE 15 ML UDC MM SCH ×2 (09:31→21:35)
[2023-08-07 12:00] VITALS: BP 107/60; TEMP 98.5; O2SAT 100
[2023-08-07 16:00] VITALS: BP 109/65; TEMP 98; O2SAT 100
[2023-08-07] MEDS: CHOLECALCIFEROL 1,000 UNIT TABLET (VIT D3) GT SCH (18:00)
[2023-08-07] MEDS: FERROUS SULFATE UDC 300 MG/5 ML UDC GT SCH (18:00)
[2023-08-07 20:00] VITALS: BP 108/76; TEMP 97.7; O2SAT 95
[2023-08-07] MEDS: NYSTATIN CREAM 15 GM TUBE TP SCH (20:41)
[2023-08-07] MEDS: ATORVASTATIN 40 MG TABLET GT SCH (21:36)
[2023-08-08] VITALS: BP 116/73; TEMP 96.4; O2SAT 100
[2023-08-08 04:00] VITALS: BP 104/66; TEMP 96.4; O2SAT 98
[2023-08-08] MEDS: VALPROATE 1,000 MG in IV D5W 100 ML IV SCH ×3 (04:18→20:42)
[2023-08-08] MEDS: METOCLOPRAMIDE HCL 10 MG/2 ML VIAL IV SCH ×4 (04:20→21:19)
[2023-08-08 05:48] LABS: BASOPHILS % (AUTO) 0.2 % (0.0-2.0); EOSINOPHILS # (AUTO) 0.1 K/uL (0.0-0.7); EOSINOPHILS % (AUTO) 0.6 % (0.0-6.0); HEMATOCRIT 28 % (39-51); HEMOGLOBIN 8.7 g/dL (13.5-17.5); LYMPHOCYTES # (AUTO) 2.7 K/uL (0.8-4.8); LYMPHOCYTES % (AUTO) 15.2 % (20.0-44.0); MEAN CORPUSCULAR HEMOGLOBIN 30 PG (26.0-33.0); MEAN CORPUSCULAR HGB CONC 31 g/dl (31.0-36.0); MEAN CORPUSCULAR VOLUME 97 fL (80-96); MONOCYTES # (AUTO) 1.7 K/uL (0.1-1.30); MONOCYTES % (AUTO) 9.7 % (2.0-12.0); NEUTROPHILS # (AUTO) 12.9 K/uL (1.8-8.9); NEUTROPHILS % (AUTO) 74.3 % (43.0-81.0); PLATELET COUNT (AUTO) 312 K/uL (150-450); RED BLOOD CELL COUNT(AUTO) 2.88 MIL/uL (4.5-6.0); WHITE BLOOD COUNT (AUTO) 17.4 K/uL (4.3-11.0)
[2023-08-08] MEDS: IV D5/0.45 NACL 1,000 ML IV PRN ×2 (05:52→16:17)
[2023-08-08 06:16] LABS: BILIRUBIN,TOTAL 0.3 mg/dL (0.2-1.0); CALCIUM, SERUM 8.4 mg/dL (8.5-10.1); CREATININE 0.7 mg/dL (0.6-1.3); MAGNESIUM 1.9 mg/dL (1.8-2.4); PHOSPHORUS 4.2 mg/dL (2.5-4.9); POTASSIUM 3.9 mmol/L (3.5-5.1); TOTAL PROTEIN, SERUM 5.9 g/dL (6.4-8.2)
[2023-08-08 06:36] LABS: ALBUMIN 0.8 g/dL (3.4-5.0)
[2023-08-08 08:00] VITALS: BP 115/67; TEMP 97.7; O2SAT 100
[2023-08-08] MEDS: ARGININE/GLUTAMINE/CALCIUM BMB 1 EACH POWD.PACK GT SCH ×3 (08:00→17:01)
[2023-08-08] MEDS: PROSOURCE / PROSTAT (PYXIS) 30 ML UDC GT SCH ×3 (08:00→16:16)
[2023-08-08] MEDS: LACOSAMIDE ORAL SOLN 50 MG/5 ML UDC GT SCH ×2 (09:00→10:52)
[2023-08-08] MEDS: DOCUSATE SODIUM LIQ 100 MG/10 ML UDC GT SCH ×3 (09:00→16:16)
[2023-08-08] MEDS: PANTOPRAZOLE 40 MG/PACK PACK GT SCH ×4 (09:00→21:09)
[2023-08-08] MEDS: LEVETIRACETAM SOL (5 ML) 100 MG/ML UDC GT SCH ×2 (09:00→10:52)
[2023-08-08] MEDS: CHLORHEXIDINE GLUCONATE 15 ML UDC MM SCH ×2 (10:52→21:09)
[2023-08-08] MEDS: FERROUS SULFATE UDC 300 MG/5 ML UDC GT SCH (10:52)
[2023-08-08] MEDS: LEVOTHYROXINE SODIUM 50 MCG TABLET GT SCH (10:52)
[2023-08-08] MEDS: CHOLECALCIFEROL 1,000 UNIT TABLET (VIT D3) GT SCH (10:53)
[2023-08-08] MEDS: ASPIRIN 325 MG TABLET GT SCH (10:53)
[2023-08-08] MEDS: DAKINS QUARTER STRENGTH (0.125%) 480 ML BOTTLE TOP SCH ×2 (10:54→10:55)
[2023-08-08] MEDS: NYSTATIN CREAM 15 GM TUBE TP SCH ×2 (10:57→16:20)
[2023-08-08 12:00] VITALS: BP 105/72; TEMP 98; O2SAT 100
[2023-08-08 16:00] VITALS: BP 105/63; TEMP 98.2; O2SAT 100
[2023-08-08] MEDS ORDERED: LACOSAMIDE 100 MG in IV NS 0.9% 50 ML IV SCH ×2 (16:00→21:00)
[2023-08-08] MEDS: LACOSAMIDE 100 MG in IV NS 0.9% 50 ML IV SCH (19:29)
[2023-08-08 20:00] VITALS: BP 106/73; TEMP 98; O2SAT 100
[2023-08-08] MEDS: ATORVASTATIN 40 MG TABLET GT SCH (21:15)
[2023-08-08] MEDS: LEVETIRACETAM (500MG) 1,500 MG in IV NS 0.9% 85 ML IV SCH (21:49)
[2023-08-09] VITALS: BP 111/74; TEMP 97.9; O2SAT 99
[2023-08-09 04:00] VITALS: BP_SYST 108; BP_SYST 110; BP_DIAS 70; BP_DIAS 75; TEMP 98; TEMP 98.4; O2SAT 100
[2023-08-09] MEDS: IV D5/0.45 NACL 1,000 ML IV PRN ×2 (04:25→21:31)
[2023-08-09] MEDS: METOCLOPRAMIDE HCL 10 MG/2 ML VIAL IV SCH ×4 (04:25→21:27)
[2023-08-09 05:58] LABS: BASOPHILS % (AUTO) 0.3 % (0.0-2.0); EOSINOPHILS # (AUTO) 0.1 K/uL (0.0-0.7); EOSINOPHILS % (AUTO) 0.6 % (0.0-6.0); HEMATOCRIT 30 % (39-51); HEMOGLOBIN 9.1 g/dL (13.5-17.5); LYMPHOCYTES # (AUTO) 1.7 K/uL (0.8-4.8); LYMPHOCYTES % (AUTO) 11.3 % (20.0-44.0); MEAN CORPUSCULAR HEMOGLOBIN 30 PG (26.0-33.0); MEAN CORPUSCULAR HGB CONC 31 g/dl (31.0-36.0); MEAN CORPUSCULAR VOLUME 98 fL (80-96); MONOCYTES # (AUTO) 1.3 K/uL (0.1-1.30); MONOCYTES % (AUTO) 8.4 % (2.0-12.0); NEUTROPHILS # (AUTO) 12.2 K/uL (1.8-8.9); NEUTROPHILS % (AUTO) 79.4 % (43.0-81.0); PLATELET COUNT (AUTO) 281 K/uL (150-450); RED BLOOD CELL COUNT(AUTO) 3.03 MIL/uL (4.5-6.0); RED CELL DISTRIBUTION WIDTH 18.5 % (11.5-15.0); WHITE BLOOD COUNT (AUTO) 15.4 K/uL (4.3-11.0)
[2023-08-09 06:08] LABS: ALANINE AMINOTRANSFERASE < 6 U/L (12-78); ALKALINE PHOSPHATASE 119 U/L (46-116); ASPARTATE AMINOTRANSFERASE 24 U/L (15-37); BILIRUBIN,TOTAL 0.4 mg/dL (0.2-1.0); CALCIUM, SERUM 8.4 mg/dL (8.5-10.1); CARBON DIOXIDE 19 mmol/L (21-32); CHLORIDE 112 mmol/L (98-107); CREATININE 0.6 mg/dL (0.6-1.3); GLUCOSE 88 mg/dL (74-106); MAGNESIUM 1.8 mg/dL (1.8-2.4); PHOSPHORUS 3.8 mg/dL (2.5-4.9); POTASSIUM 3.9 mmol/L (3.5-5.1); SODIUM SERUM 137 mmol/L (136-145); TOTAL PROTEIN, SERUM 6.3 g/dL (6.4-8.2); UREA NITROGEN, BLOOD 23 mg/dL (7-18)
[2023-08-09 06:22] LABS: ALBUMIN 0.9 g/dL (3.4-5.0)
[2023-08-09 08:00] VITALS: BP 122/80; TEMP 97.7; O2SAT 100
[2023-08-09] MEDS: ARGININE/GLUTAMINE/CALCIUM BMB 1 EACH POWD.PACK GT SCH ×3 (08:00→17:39)
[2023-08-09] MEDS: PROSOURCE / PROSTAT (PYXIS) 30 ML UDC GT SCH ×3 (08:00→16:20)
[2023-08-09] MEDS: LACOSAMIDE 100 MG in IV NS 0.9% 50 ML IV SCH ×2 (08:55→20:00)
[2023-08-09] MEDS: ASPIRIN 325 MG TABLET GT SCH (09:00)
[2023-08-09] MEDS: PANTOPRAZOLE 40 MG/PACK PACK GT SCH ×2 (09:00→21:27)
[2023-08-09] MEDS: DOCUSATE SODIUM LIQ 100 MG/10 ML UDC GT SCH ×2 (09:00→16:20)
[2023-08-09] MEDS: LEVOTHYROXINE SODIUM 50 MCG TABLET GT SCH (09:00)
[2023-08-09] MEDS: VALPROATE 1,000 MG in IV D5W 100 ML IV SCH ×2 (10:36→16:21)
[2023-08-09] MEDS: NYSTATIN CREAM 15 GM TUBE TP SCH ×2 (10:40→16:21)
[2023-08-09] MEDS: CHLORHEXIDINE GLUCONATE 15 ML UDC MM SCH ×2 (10:40→21:27)
[2023-08-09] MEDS: DAKINS QUARTER STRENGTH (0.125%) 480 ML BOTTLE TOP SCH (10:40)
[2023-08-09] MEDS: LEVETIRACETAM (500MG) 1,500 MG in IV NS 0.9% 85 ML IV SCH ×2 (11:15→21:29)
[2023-08-09 12:00] VITALS: BP 118/75; TEMP 97.5; O2SAT 100
[2023-08-09 15:03] LABS: INR 1.07 (0.91-1.10); PROTHROMBIN TIME 11.3 SECS (9.2-11.1)
[2023-08-09 16:00] VITALS: BP 121/84; TEMP 97.5; O2SAT 100
[2023-08-09] MEDS: FERROUS SULFATE UDC 300 MG/5 ML UDC GT SCH (17:39)
[2023-08-09] MEDS: CHOLECALCIFEROL 1,000 UNIT TABLET (VIT D3) GT SCH (17:40)
[2023-08-09 20:00] VITALS: BP 127/72; TEMP 97.9; O2SAT 98
[2023-08-09] MEDS: ATORVASTATIN 40 MG TABLET GT SCH (21:28)
[2023-08-10] VITALS: BP 110/69; TEMP 98; O2SAT 98
[2023-08-10] MEDS: VALPROATE 1,000 MG in IV D5W 100 ML IV SCH ×3 (00:41→17:00)
[2023-08-10] MEDS: METOCLOPRAMIDE HCL 10 MG/2 ML VIAL IV SCH ×4 (04:00→22:05)
[2023-08-10 06:00] VITALS: BP_SYST 105; BP_SYST 110; BP_DIAS 60; BP_DIAS 69; TEMP 98; O2SAT 98; O2SAT 99
[2023-08-10 07:03] LABS: BASOPHILS # (AUTO) 0.1 K/uL (0.0-0.2); BASOPHILS % (AUTO) 0.5 % (0.0-2.0); EOSINOPHILS # (AUTO) 0.1 K/uL (0.0-0.7); EOSINOPHILS % (AUTO) 0.9 % (0.0-6.0); HEMATOCRIT 29 % (39-51); HEMOGLOBIN 9.1 g/dL (13.5-17.5); LYMPHOCYTES # (AUTO) 1.4 K/uL (0.8-4.8); LYMPHOCYTES % (AUTO) 11.6 % (20.0-44.0); MEAN CORPUSCULAR HEMOGLOBIN 31 PG (26.0-33.0); MEAN CORPUSCULAR HGB CONC 32 g/dl (31.0-36.0); MEAN CORPUSCULAR VOLUME 98 fL (80-96); MONOCYTES # (AUTO) 0.9 K/uL (0.1-1.30); MONOCYTES % (AUTO) 7.8 % (2.0-12.0); NEUTROPHILS # (AUTO) 9.4 K/uL (1.8-8.9); NEUTROPHILS % (AUTO) 79.2 % (43.0-81.0); PLATELET COUNT (AUTO) 239 K/uL (150-450); RED BLOOD CELL COUNT(AUTO) 2.93 MIL/uL (4.5-6.0); RED CELL DISTRIBUTION WIDTH 19.4 % (11.5-15.0); WHITE BLOOD COUNT (AUTO) 11.9 K/uL (4.3-11.0)
[2023-08-10 07:37] LABS: ALANINE AMINOTRANSFERASE 9 U/L (12-78); ALKALINE PHOSPHATASE 110 U/L (46-116); ASPARTATE AMINOTRANSFERASE 25 U/L (15-37); BILIRUBIN,TOTAL 0.4 mg/dL (0.2-1.0); CALCIUM, SERUM 8.5 mg/dL (8.5-10.1); CARBON DIOXIDE 19 mmol/L (21-32); CHLORIDE 111 mmol/L (98-107); CREATININE 0.5 mg/dL (0.6-1.3); GLUCOSE 98 mg/dL (74-106); MAGNESIUM 1.8 mg/dL (1.8-2.4); POTASSIUM 3.6 mmol/L (3.5-5.1); SODIUM SERUM 135 mmol/L (136-145); UREA NITROGEN, BLOOD 21 mg/dL (7-18)
[2023-08-10 07:49] LABS: ALBUMIN 0.8 g/dL (3.4-5.0)
[2023-08-10 08:00] VITALS: BP 126/78; TEMP 97.9; O2SAT 100
[2023-08-10] MEDS: ARGININE/GLUTAMINE/CALCIUM BMB 1 EACH POWD.PACK GT SCH ×2 (08:00→17:33)
[2023-08-10] MEDS: DAKINS QUARTER STRENGTH (0.125%) 480 ML BOTTLE TOP SCH (08:00)
[2023-08-10] MEDS: LEVETIRACETAM (500MG) 1,500 MG in IV NS 0.9% 85 ML IV SCH ×2 (08:50→22:06)
[2023-08-10] MEDS: LACOSAMIDE 100 MG in IV NS 0.9% 50 ML IV SCH ×2 (08:55→20:18)
[2023-08-10] MEDS: LEVOTHYROXINE SODIUM 50 MCG TABLET GT SCH (09:00)
[2023-08-10] MEDS: ASPIRIN 325 MG TABLET GT SCH (09:00)
[2023-08-10] MEDS: DOCUSATE SODIUM LIQ 100 MG/10 ML UDC GT SCH ×2 (09:00→16:07)
[2023-08-10] MEDS: PANTOPRAZOLE 40 MG/PACK PACK GT SCH ×3 (09:00→21:21)
[2023-08-10] MEDS: CHLORHEXIDINE GLUCONATE 15 ML UDC MM SCH ×2 (09:00→21:20)
[2023-08-10] MEDS: NYSTATIN CREAM 15 GM TUBE TP SCH ×2 (09:05→17:32)
[2023-08-10 12:00] VITALS: BP 118/87; TEMP 97.7; O2SAT 100
[2023-08-10 16:00] VITALS: BP 121/76; TEMP 98.1; O2SAT 100
[2023-08-10] MEDS: FERROUS SULFATE UDC 300 MG/5 ML UDC GT SCH (17:33)
[2023-08-10] MEDS: CHOLECALCIFEROL 1,000 UNIT TABLET (VIT D3) GT SCH (17:33)
[2023-08-10 20:00] VITALS: BP 143/78; TEMP 97.6; O2SAT 100
[2023-08-10] MEDS: ATORVASTATIN 40 MG TABLET GT SCH ×2 (21:20→22:00)
[2023-08-11] VITALS: BP 143/76; TEMP 97.7; O2SAT 100
[2023-08-11] MEDS: VALPROATE 1,000 MG in IV D5W 100 ML IV SCH ×3 (00:14→18:06)
[2023-08-11] MEDS: IV D5/0.45 NACL 1,000 ML IV PRN ×2 (00:19→10:12)
[2023-08-11 04:00] VITALS: BP 150/87; TEMP 97.7; O2SAT 100
[2023-08-11] MEDS: METOCLOPRAMIDE HCL 10 MG/2 ML VIAL IV SCH ×4 (04:34→21:49)
[2023-08-11 07:51] LABS: BASOPHILS % (AUTO) 0.3 % (0.0-2.0); EOSINOPHILS # (AUTO) 0.1 K/uL (0.0-0.7); EOSINOPHILS % (AUTO) 0.7 % (0.0-6.0); HEMATOCRIT 29 % (39-51); HEMOGLOBIN 9.2 g/dL (13.5-17.5); LYMPHOCYTES # (AUTO) 1.2 K/uL (0.8-4.8); LYMPHOCYTES % (AUTO) 11.5 % (20.0-44.0); MEAN CORPUSCULAR HEMOGLOBIN 31 PG (26.0-33.0); MEAN CORPUSCULAR HGB CONC 32 g/dl (31.0-36.0); MEAN CORPUSCULAR VOLUME 99 fL (80-96); MONOCYTES # (AUTO) 0.8 K/uL (0.1-1.30); MONOCYTES % (AUTO) 7.5 % (2.0-12.0); NEUTROPHILS # (AUTO) 8.3 K/uL (1.8-8.9); PLATELET COUNT (AUTO) 192 K/uL (150-450); RED BLOOD CELL COUNT(AUTO) 2.95 MIL/uL (4.5-6.0); WHITE BLOOD COUNT (AUTO) 10.4 K/uL (4.3-11.0)
[2023-08-11 08:00] VITALS: BP 121/84; TEMP 97.8; O2SAT 100
[2023-08-11] MEDS: ARGININE/GLUTAMINE/CALCIUM BMB 1 EACH POWD.PACK GT SCH ×2 (08:00→17:21)
[2023-08-11] MEDS: PANTOPRAZOLE 40 MG/PACK PACK GT SCH ×3 (08:22→21:48)
[2023-08-11] MEDS: LEVOTHYROXINE SODIUM 50 MCG TABLET GT SCH (08:22)
[2023-08-11] MEDS: DOCUSATE SODIUM LIQ 100 MG/10 ML UDC GT SCH ×2 (08:22→17:00)
[2023-08-11] MEDS: ASPIRIN 325 MG TABLET GT SCH (08:22)
[2023-08-11] MEDS: CHLORHEXIDINE GLUCONATE 15 ML UDC MM SCH ×2 (08:26→21:49)
[2023-08-11 08:42] LABS: ALANINE AMINOTRANSFERASE 8 U/L (12-78); ALKALINE PHOSPHATASE 109 U/L (46-116); ASPARTATE AMINOTRANSFERASE 29 U/L (15-37); BILIRUBIN,TOTAL 0.3 mg/dL (0.2-1.0); CALCIUM, SERUM 8.2 mg/dL (8.5-10.1); CARBON DIOXIDE 15 mmol/L (21-32); CHLORIDE 106 mmol/L (98-107); CREATININE 0.4 mg/dL (0.6-1.3); GLUCOSE 105 mg/dL (74-106); POTASSIUM 3.5 mmol/L (3.5-5.1); SODIUM SERUM 130 mmol/L (136-145); TOTAL PROTEIN, SERUM 5.9 g/dL (6.4-8.2); UREA NITROGEN, BLOOD 19 mg/dL (7-18)
[2023-08-11 08:49] LABS: ALBUMIN 0.8 g/dL (3.4-5.0)
[2023-08-11] MEDS: NYSTATIN CREAM 15 GM TUBE TP SCH ×2 (09:00→17:00)
[2023-08-11] MEDS: LEVETIRACETAM (500MG) 1,500 MG in IV NS 0.9% 85 ML IV SCH ×2 (10:02→21:58)
[2023-08-11] MEDS: DAKINS QUARTER STRENGTH (0.125%) 480 ML BOTTLE TOP SCH (10:21)
[2023-08-11] MEDS: LACOSAMIDE 100 MG in IV NS 0.9% 50 ML IV SCH ×2 (10:48→19:39)
[2023-08-11 12:00] VITALS: BP 97/55; TEMP 97.5; O2SAT 100
[2023-08-11] MEDS ORDERED: IV D5 LR 1,000 ML IV ONE (14:00)
[2023-08-11 16:00] VITALS: BP 94/51; TEMP 97.3; O2SAT 100
[2023-08-11] MEDS: CHOLECALCIFEROL 1,000 UNIT TABLET (VIT D3) GT SCH (17:21)
[2023-08-11] MEDS: FERROUS SULFATE UDC 300 MG/5 ML UDC GT SCH (17:21)
[2023-08-11 20:00] VITALS: BP 115/72; TEMP 98.1; O2SAT 100
[2023-08-11] MEDS ORDERED: TPN/PPN PER PHARMACY IV PRN (20:30)
[2023-08-11] MEDS: ATORVASTATIN 40 MG TABLET GT SCH ×3 (21:49→22:49)
[2023-08-12] VITALS: BP 121/75; TEMP 98.4; O2SAT 100
[2023-08-12] MEDS: ATORVASTATIN 40 MG TABLET GT SCH (00:04)
[2023-08-12] MEDS: VALPROATE 1,000 MG in IV D5W 100 ML IV SCH ×3 (00:22→16:14)
[2023-08-12 04:00] VITALS: BP 136/79; TEMP 97; O2SAT 100
[2023-08-12] MEDS: METOCLOPRAMIDE HCL 10 MG/2 ML VIAL IV SCH ×4 (04:50→21:26)
[2023-08-12 07:27] LABS: BASOPHILS % (AUTO) 0.3 % (0.0-2.0); EOSINOPHILS # (AUTO) 0.1 K/uL (0.0-0.7); EOSINOPHILS % (AUTO) 0.5 % (0.0-6.0); HEMATOCRIT 34 % (39-51); HEMOGLOBIN 10.5 g/dL (13.5-17.5); LYMPHOCYTES % (AUTO) 10.1 % (20.0-44.0); MEAN CORPUSCULAR HEMOGLOBIN 31 PG (26.0-33.0); MEAN CORPUSCULAR HGB CONC 31 g/dl (31.0-36.0); MEAN CORPUSCULAR VOLUME 98 fL (80-96); MONOCYTES # (AUTO) 0.7 K/uL (0.1-1.30); NEUTROPHILS # (AUTO) 8.3 K/uL (1.8-8.9); NEUTROPHILS % (AUTO) 82.1 % (43.0-81.0); PLATELET COUNT (AUTO) 179 K/uL (150-450); RED BLOOD CELL COUNT(AUTO) 3.43 MIL/uL (4.5-6.0); RED CELL DISTRIBUTION WIDTH 20.9 % (11.5-15.0); WHITE BLOOD COUNT (AUTO) 10.1 K/uL (4.3-11.0)
[2023-08-12] MEDS: ARGININE/GLUTAMINE/CALCIUM BMB 1 EACH POWD.PACK GT SCH ×2 (07:45→17:57)
[2023-08-12 08:00] VITALS: BP 126/86; TEMP 97.5; O2SAT 100
[2023-08-12] MEDS: LACOSAMIDE 100 MG in IV NS 0.9% 50 ML IV SCH ×2 (08:18→20:13)
[2023-08-12 08:26] LABS: ALANINE AMINOTRANSFERASE 8 U/L (12-78); ALKALINE PHOSPHATASE 116 U/L (46-116); ASPARTATE AMINOTRANSFERASE 32 U/L (15-37); BILIRUBIN,TOTAL 0.3 mg/dL (0.2-1.0); CALCIUM, SERUM 8.3 mg/dL (8.5-10.1); CARBON DIOXIDE 15 mmol/L (21-32); CHLORIDE 108 mmol/L (98-107); CREATININE 0.5 mg/dL (0.6-1.3); GLUCOSE 92 mg/dL (74-106); MAGNESIUM 1.9 mg/dL (1.8-2.4); PHOSPHORUS 4.1 mg/dL (2.5-4.9); POTASSIUM 3.8 mmol/L (3.5-5.1); SODIUM SERUM 133 mmol/L (136-145); TOTAL PROTEIN, SERUM 6.1 g/dL (6.4-8.2); UREA NITROGEN, BLOOD 17 mg/dL (7-18)
[2023-08-12 08:36] LABS: PREALBUMIN 10.7 MG/DL (18.0-35.7)
[2023-08-12] MEDS: DOCUSATE SODIUM LIQ 100 MG/10 ML UDC GT SCH ×2 (08:45→16:17)
[2023-08-12] MEDS: ASPIRIN 325 MG TABLET GT SCH (08:45)
[2023-08-12] MEDS: PANTOPRAZOLE 40 MG/PACK PACK GT SCH (08:46)
[2023-08-12] MEDS: LEVOTHYROXINE SODIUM 50 MCG TABLET GT SCH (08:46)
[2023-08-12 08:47] LABS: ALBUMIN 0.8 g/dL (3.4-5.0)
[2023-08-12 08:48] LABS: ALBUMIN 0.8 g/dL (3.4-5.0)
[2023-08-12] MEDS: DAKINS QUARTER STRENGTH (0.125%) 480 ML BOTTLE TOP SCH (09:22)
[2023-08-12] MEDS: CHLORHEXIDINE GLUCONATE 15 ML UDC MM SCH ×2 (09:23→20:19)
[2023-08-12] MEDS: LEVETIRACETAM (500MG) 1,500 MG in IV NS 0.9% 85 ML IV SCH ×2 (09:24→21:09)
[2023-08-12] MEDS: NYSTATIN CREAM 15 GM TUBE TP SCH ×2 (09:25→16:16)
[2023-08-12 12:00] VITALS: BP 93/63; TEMP 97.7; O2SAT 100
[2023-08-12] MEDS: PANTOPRAZOLE 40 MG VIAL IV SCH (12:47)
[2023-08-12] MEDS ORDERED: DEXTROSE 50%-WATER 50 ML DISP.SYRIN IV PRN (15:00)
[2023-08-12 16:00] VITALS: BP 110/57; TEMP 97.3; O2SAT 100
[2023-08-12] MEDS: IV D5/ 0.9% NACL 1,000 ML IV PRN (16:51)
[2023-08-12] MEDS: CHOLECALCIFEROL 1,000 UNIT TABLET (VIT D3) GT SCH (17:57)
[2023-08-12] MEDS: FERROUS SULFATE UDC 300 MG/5 ML UDC GT SCH (17:57)
[2023-08-12] MEDS: BLOOD SUGAR DIAGNOSTIC 1 EACH STRIP IN SCH ×2 (17:57→23:19)
[2023-08-12] MEDS: INSULIN REGULAR, HUMAN 100 UNIT/ML 3 ML VIAL SQ PRN ×2 (18:03→23:21)
[2023-08-12 20:00] VITALS: BP 118/77; TEMP 96.9; O2SAT 100
[2023-08-13] VITALS: BP 96/60; TEMP 109; O2SAT 100
[2023-08-13] MEDS: VALPROATE 1,000 MG in IV D5W 100 ML IV SCH ×3 (00:41→18:23)
[2023-08-13] MEDS: METOCLOPRAMIDE HCL 10 MG/2 ML VIAL IV SCH ×4 (03:50→22:10)
[2023-08-13 04:00] VITALS: BP 100/68; TEMP 98.2; O2SAT 100
[2023-08-13] MEDS: BLOOD SUGAR DIAGNOSTIC 1 EACH STRIP IN SCH ×3 (06:00→18:12)
[2023-08-13] MEDS: INSULIN REGULAR, HUMAN 100 UNIT/ML 3 ML VIAL SQ PRN (07:04)
[2023-08-13 08:00] VITALS: BP 108/64; TEMP 97.8; O2SAT 100
[2023-08-13] MEDS: ARGININE/GLUTAMINE/CALCIUM BMB 1 EACH POWD.PACK GT SCH ×2 (08:00→18:00)
[2023-08-13] MEDS: ASPIRIN 325 MG TABLET GT SCH (09:00)
[2023-08-13] MEDS: DOCUSATE SODIUM LIQ 100 MG/10 ML UDC GT SCH ×2 (09:00→17:00)
[2023-08-13] MEDS: LEVOTHYROXINE SODIUM 50 MCG TABLET GT SCH (09:00)
[2023-08-13] MEDS: LACOSAMIDE 100 MG in IV NS 0.9% 50 ML IV SCH ×2 (09:18→20:46)
[2023-08-13] MEDS: CHLORHEXIDINE GLUCONATE 15 ML UDC MM SCH ×2 (09:24→20:46)
[2023-08-13] MEDS: NYSTATIN CREAM 15 GM TUBE TP SCH ×2 (09:25→17:00)
[2023-08-13] MEDS: DAKINS QUARTER STRENGTH (0.125%) 480 ML BOTTLE TOP SCH (09:25)
[2023-08-13 09:27] LABS: BASOPHILS # (AUTO) 0.1 K/uL (0.0-0.2); BASOPHILS % (AUTO) 0.3 % (0.0-2.0); EOSINOPHILS % (AUTO) 0.1 % (0.0-6.0); HEMATOCRIT 30 % (39-51); HEMOGLOBIN 9.5 g/dL (13.5-17.5); LYMPHOCYTES # (AUTO) 0.6 K/uL (0.8-4.8); LYMPHOCYTES % (AUTO) 3.5 % (20.0-44.0); MEAN CORPUSCULAR HEMOGLOBIN 30 PG (26.0-33.0); MEAN CORPUSCULAR HGB CONC 31 g/dl (31.0-36.0); MEAN CORPUSCULAR VOLUME 96 fL (80-96); MONOCYTES # (AUTO) 0.7 K/uL (0.1-1.30); MONOCYTES % (AUTO) 4.2 % (2.0-12.0); NEUTROPHILS # (AUTO) 16.3 K/uL (1.8-8.9); NEUTROPHILS % (AUTO) 91.9 % (43.0-81.0); PLATELET COUNT (AUTO) 189 K/uL (150-450); RED BLOOD CELL COUNT(AUTO) 3.16 MIL/uL (4.5-6.0); RED CELL DISTRIBUTION WIDTH 20.8 % (11.5-15.0); WHITE BLOOD COUNT (AUTO) 17.8 K/uL (4.3-11.0)
[2023-08-13] MEDS: LEVETIRACETAM (500MG) 1,500 MG in IV NS 0.9% 85 ML IV SCH ×2 (10:01→20:46)
[2023-08-13 10:26] LABS: ALBUMIN 0.8 g/dL (3.4-5.0)
[2023-08-13 10:28] LABS: CALCIUM, SERUM 8.3 mg/dL (8.5-10.1); CREATININE 0.6 mg/dL (0.6-1.3); MAGNESIUM 1.8 mg/dL (1.8-2.4); PHOSPHORUS 4.4 mg/dL (2.5-4.9); POTASSIUM 3.2 mmol/L (3.5-5.1)
[2023-08-13] MEDS: PANTOPRAZOLE 40 MG VIAL IV SCH (13:31)
[2023-08-13] MEDS: POTASSIUM CL. PREMIX PERIPHER. 50 ML IV SCH ×4 (13:32→17:02)
[2023-08-13 14:05] VITALS: BP 104/82; TEMP 98.4; O2SAT 100
[2023-08-13] MEDS: IV D5/ 0.9% NACL 1,000 ML IV PRN (14:42)
[2023-08-13 16:37] VITALS: BP 100/78; TEMP 97.5; O2SAT 96
[2023-08-13] MEDS ORDERED: PPN BAG #1 IV SCH ×4 (17:00)
[2023-08-13] MEDS: FERROUS SULFATE UDC 300 MG/5 ML UDC GT SCH (18:00)
[2023-08-13] MEDS: CHOLECALCIFEROL 1,000 UNIT TABLET (VIT D3) GT SCH (18:00)
[2023-08-13 20:00] VITALS: BP 104/66; TEMP 98.1; O2SAT 98
[2023-08-13] MEDS ORDERED: TPN #1 IV SCH ×4 (20:00)
[2023-08-13] MEDS: ATORVASTATIN 40 MG TABLET GT SCH (22:00)
[2023-08-14] VITALS: BP 117/70; TEMP 99; O2SAT 99
[2023-08-14] MEDS: VALPROATE 1,000 MG in IV D5W 100 ML IV SCH ×3 (00:04→16:50)
[2023-08-14] MEDS: BLOOD SUGAR DIAGNOSTIC 1 EACH STRIP IN SCH ×4 (00:04→17:04)
[2023-08-14] MEDS: METOCLOPRAMIDE HCL 10 MG/2 ML VIAL IV SCH ×4 (03:42→22:25)
[2023-08-14 04:00] VITALS: BP 104/57; TEMP 98.4; O2SAT 99
[2023-08-14 07:44] LABS: CALCIUM, SERUM 7.8 mg/dL (8.5-10.1); CREATININE 0.7 mg/dL (0.6-1.3); MAGNESIUM 1.8 mg/dL (1.8-2.4); POTASSIUM 3.9 mmol/L (3.5-5.1)
[2023-08-14] MEDS: ARGININE/GLUTAMINE/CALCIUM BMB 1 EACH POWD.PACK GT SCH ×2 (07:59→17:04)
[2023-08-14 08:00] VITALS: BP 99/58; TEMP 98.6; O2SAT 98
[2023-08-14] MEDS: LACOSAMIDE 100 MG in IV NS 0.9% 50 ML IV SCH ×2 (08:06→19:56)
[2023-08-14] MEDS: ASPIRIN 325 MG TABLET GT SCH (09:00)
[2023-08-14] MEDS: DOCUSATE SODIUM LIQ 100 MG/10 ML UDC GT SCH ×2 (09:00→16:42)
[2023-08-14] MEDS: LEVOTHYROXINE SODIUM 50 MCG TABLET GT SCH (09:00)
[2023-08-14] MEDS: CHLORHEXIDINE GLUCONATE 15 ML UDC MM SCH ×2 (09:20→21:11)
[2023-08-14] MEDS: DAKINS QUARTER STRENGTH (0.125%) 480 ML BOTTLE TOP SCH (09:21)
[2023-08-14] MEDS: NYSTATIN CREAM 15 GM TUBE TP SCH ×2 (09:21→16:43)
[2023-08-14] MEDS: LEVETIRACETAM (500MG) 1,500 MG in IV NS 0.9% 85 ML IV SCH ×2 (09:25→21:11)
[2023-08-14] MEDS: PANTOPRAZOLE 40 MG VIAL IV SCH (11:03)
[2023-08-14] MEDS: INSULIN REGULAR, HUMAN 100 UNIT/ML 3 ML VIAL SQ PRN ×2 (11:13→17:04)
[2023-08-14 11:24] LABS: BASOPHILS # (AUTO) 0.1 K/uL (0.0-0.2); BASOPHILS % (AUTO) 0.4 % (0.0-2.0); EOSINOPHILS % (AUTO) 0.1 % (0.0-6.0); HEMATOCRIT 28 % (39-51); HEMOGLOBIN 8.8 g/dL (13.5-17.5); LYMPHOCYTES # (AUTO) 1.4 K/uL (0.8-4.8); LYMPHOCYTES % (AUTO) 7.9 % (20.0-44.0); MEAN CORPUSCULAR HEMOGLOBIN 31 PG (26.0-33.0); MEAN CORPUSCULAR HGB CONC 32 g/dl (31.0-36.0); MEAN CORPUSCULAR VOLUME 99 fL (80-96); MONOCYTES # (AUTO) 1.3 K/uL (0.1-1.30); MONOCYTES % (AUTO) 7.3 % (2.0-12.0); NEUTROPHILS % (AUTO) 84.3 % (43.0-81.0); PLATELET COUNT (AUTO) 131 K/uL (150-450); RED BLOOD CELL COUNT(AUTO) 2.83 MIL/uL (4.5-6.0); RED CELL DISTRIBUTION WIDTH 21.5 % (11.5-15.0); WHITE BLOOD COUNT (AUTO) 17.8 K/uL (4.3-11.0)
[2023-08-14] MEDS ORDERED: DOSING PER PHARMACY-AMIKACI IV XX PRN (11:30)
[2023-08-14 12:00] VITALS: BP 91/52; TEMP 98.5; O2SAT 98
[2023-08-14] MEDS ORDERED: AMIKACIN 250 MG/ML VIAL IM SCH (13:00)
[2023-08-14] MEDS: AMIKACIN 500 MG in IV D5W 100 ML IV SCH (13:42)
[2023-08-14 16:00] VITALS: BP 94/55; TEMP 97.9; O2SAT 98
[2023-08-14] MEDS ORDERED: TPN BAG #2 IV SCH ×4 (17:00)
[2023-08-14] MEDS: FERROUS SULFATE UDC 300 MG/5 ML UDC GT SCH (17:04)
[2023-08-14] MEDS: CHOLECALCIFEROL 1,000 UNIT TABLET (VIT D3) GT SCH (17:04)
[2023-08-14 20:00] VITALS: BP 93/54; TEMP 97.9; O2SAT 97
[2023-08-14] MEDS: ATORVASTATIN 40 MG TABLET GT SCH (21:12)
[2023-08-15] VITALS: BP 98/50; TEMP 97.4; O2SAT 99
[2023-08-15] MEDS: BLOOD SUGAR DIAGNOSTIC 1 EACH STRIP IN SCH ×3 (00:49→12:06)
[2023-08-15] MEDS: INSULIN REGULAR, HUMAN 100 UNIT/ML 3 ML VIAL SQ PRN ×3 (00:50→12:06)
[2023-08-15] MEDS: VALPROATE 1,000 MG in IV D5W 100 ML IV SCH ×2 (00:52→10:25)
[2023-08-15] MEDS: AMIKACIN 500 MG in IV D5W 100 ML IV SCH (01:59)
[2023-08-15 04:00] VITALS: BP 94/50; TEMP 97.9; O2SAT 99
[2023-08-15] MEDS: METOCLOPRAMIDE HCL 10 MG/2 ML VIAL IV SCH ×2 (05:05→10:27)
[2023-08-15 07:18] LABS: CALCIUM, SERUM 7.8 mg/dL (8.5-10.1); CREATININE 0.6 mg/dL (0.6-1.3); MAGNESIUM 1.4 mg/dL (1.8-2.4); PHOSPHORUS 3.3 mg/dL (2.5-4.9); POTASSIUM 3.2 mmol/L (3.5-5.1)
[2023-08-15 07:30] LABS: BASOPHILS % (AUTO) 0.1 % (0.0-2.0); HEMATOCRIT 25 % (39-51); HEMOGLOBIN 7.9 g/dL (13.5-17.5); LYMPHOCYTES # (AUTO) 0.9 K/uL (0.8-4.8); LYMPHOCYTES % (AUTO) 5.9 % (20.0-44.0); MEAN CORPUSCULAR HEMOGLOBIN 30 PG (26.0-33.0); MEAN CORPUSCULAR HGB CONC 32 g/dl (31.0-36.0); MEAN CORPUSCULAR VOLUME 95 fL (80-96); MONOCYTES % (AUTO) 6.6 % (2.0-12.0); NEUTROPHILS # (AUTO) 13.6 K/uL (1.8-8.9); NEUTROPHILS % (AUTO) 87.4 % (43.0-81.0); PLATELET COUNT (AUTO) 98 K/uL (150-450); RED BLOOD CELL COUNT(AUTO) 2.61 MIL/uL (4.5-6.0); WHITE BLOOD COUNT (AUTO) 15.5 K/uL (4.3-11.0)
[2023-08-15 08:00] VITALS: BP 144/110; TEMP 97.9; O2SAT 99
[2023-08-15] MEDS: ARGININE/GLUTAMINE/CALCIUM BMB 1 EACH POWD.PACK GT SCH (08:00)
[2023-08-15] MEDS: LACOSAMIDE 100 MG in IV NS 0.9% 50 ML IV SCH (08:46)
[2023-08-15] MEDS: DOCUSATE SODIUM LIQ 100 MG/10 ML UDC GT SCH (08:47)
[2023-08-15] MEDS: ASPIRIN 325 MG TABLET GT SCH (08:47)
[2023-08-15] MEDS: LEVOTHYROXINE SODIUM 50 MCG TABLET GT SCH (08:47)
[2023-08-15] MEDS ORDERED: Magnesium 1GM/D5W 100ML PREMIX 100 ML IV SCH (09:00)
[2023-08-15] MEDS ORDERED: POTASSIUM CL. PREMIX PERIPHER. 50 ML IV SCH (09:00)
[2023-08-15] MEDS: NYSTATIN CREAM 15 GM TUBE TP SCH (09:43)
[2023-08-15] MEDS: DAKINS QUARTER STRENGTH (0.125%) 480 ML BOTTLE TOP SCH (09:43)
[2023-08-15] MEDS: LEVETIRACETAM (500MG) 1,500 MG in IV NS 0.9% 85 ML IV SCH (09:52)
[2023-08-15] MEDS: CHLORHEXIDINE GLUCONATE 15 ML UDC MM SCH (10:07)
[2023-08-15] MEDS ORDERED: CEFT1VIA14 IV (10:09)
[2023-08-15] MEDS ORDERED: LEVE500V IV (10:09)
[2023-08-15] MEDS ORDERED: LACO200V IV (10:09)
[2023-08-15] MEDS ORDERED: VALP100V3 IV (10:09)
[2023-08-15] MEDS ORDERED: ASPI-992 RC (10:09)
[2023-08-15 12:00] VITALS: BP 114/68; TEMP 97.7; O2SAT 99
[2023-08-15] MEDS: PANTOPRAZOLE 40 MG VIAL IV SCH (12:09)
[2023-08-15] MEDS ORDERED: TPN BAG #3 IV SCH ×3 (17:00)
[2023-08-16] MEDS ORDERED: TPN BAG #4 IV SCH ×3 (09:50)
== END 2023-08-15 16:27 | DRG 710 ==
LOC: ER 17:55 → TELE1 21:50 → ICU 23:42 → TELE1 07-30 18:47
PROVIDERS: ADMIT Nurse Practitioner Acute Care; ATTEND Nurse Practitioner Acute Care
PROC: 5A1955Z Respiratory Ventilation, Greater than 96 Consecutive Hours (ICD-10-PCS; principal; 2023-07-25)
PROC: 30233N1 Transfusion of Nonautologous Red Blood Cells into Peripheral Vein, Percutaneous Approach (ICD-10-PCS; 2023-07-25)
PROC: 05H533Z Insertion of Infusion Device into Right Subclavian Vein, Percutaneous Approach (ICD-10-PCS; 2023-07-26)
PROC: B546ZZA Ultrasonography of Right Subclavian Vein, Guidance (ICD-10-PCS; 2023-07-26)
PROC: 30233K1 Transfusion of Nonautologous Frozen Plasma into Peripheral Vein, Percutaneous Approach (ICD-10-PCS; 2023-07-28)
PROC: 0DH63UZ Insertion of Feeding Device into Stomach, Percutaneous Approach (ICD-10-PCS; 2023-07-29)
PROC: 0D20XUZ Change Feeding Device in Upper Intestinal Tract, External Approach (ICD-10-PCS; 2023-07-29)
PROC: 05H533Z Insertion of Infusion Device into Right Subclavian Vein, Percutaneous Approach (ICD-10-PCS; 2023-07-31)
PROC: B546ZZA Ultrasonography of Right Subclavian Vein, Guidance (ICD-10-PCS; 2023-07-31)
PROC: 0KBN0ZZ Excision of Right Hip Muscle, Open Approach (ICD-10-PCS; 2023-08-07)
PROC: 0KBP0ZZ Excision of Left Hip Muscle, Open Approach (ICD-10-PCS; 2023-08-07)
PROC: 0JB10ZX Excision of Face Subcutaneous Tissue and Fascia, Open Approach, Diagnostic (ICD-10-PCS; 2023-08-07)
PROC: 05HM33Z Insertion of Infusion Device into Right Internal Jugular Vein, Percutaneous Approach (ICD-10-PCS; 2023-08-14)
PROC: B543ZZA Ultrasonography of Right Jugular Veins, Guidance (ICD-10-PCS; 2023-08-14)
DX: A41.9 Sepsis, unspecified organism (principal); R65.21 Severe sepsis with septic shock; N17.0 Acute kidney failure with tubular necrosis; J96.21 Acute and chronic respiratory failure with hypoxia; D65 Disseminated intravascular coagulation [defibrination syndrome]; G93.41 Metabolic encephalopathy; L89.154 Pressure ulcer of sacral region, stage 4; E43 Unspecified severe protein-calorie malnutrition; D68.69 Other thrombophilia; K94.21 Gastrostomy hemorrhage; R53.2 Functional quadriplegia; Y83.3 Surgical operation with formation of external stoma as the cause of abnormal reaction of the patient, or of later complication, without mention of misadventure at the time of the procedure; Y82.9 Unspecified medical devices associated with adverse incidents; Y92.129 Unspecified place in nursing home as the place of occurrence of the external cause; Z20.822 Contact with and (suspected) exposure to COVID-19; Z74.09 Other reduced mobility; E03.9 Hypothyroidism, unspecified; E83.39 Other disorders of phosphorus metabolism; E83.41 Hypermagnesemia; E83.51 Hypocalcemia; E78.5 Hyperlipidemia, unspecified; E11.22 Type 2 diabetes mellitus with diabetic chronic kidney disease; E87.6 Hypokalemia; E88.09 Other disorders of plasma-protein metabolism, not elsewhere classified; G40.909 Epilepsy, unspecified, not intractable, without status epilepticus; N18.32 Chronic kidney disease, stage 3b; R13.10 Dysphagia, unspecified; Z86.16 Personal history of COVID-19; Z87.891 Personal history of nicotine dependence; Z93.0 Tracheostomy status; Z87.01 Personal history of pneumonia (recurrent); Z99.11 Dependence on respirator [ventilator] status; Z86.74 Personal history of sudden cardiac arrest; Z85.828 Personal history of other malignant neoplasm of skin; Z79.4 Long term (current) use of insulin; Z79.82 Long term (current) use of aspirin; Z68.38 Body mass index [BMI] 38.0-38.9, adult; K29.70 Gastritis, unspecified, without bleeding; I12.9 Hypertensive chronic kidney disease with stage 1 through stage 4 chronic kidney disease, or unspecified chronic kidney disease; M89.8X9 Other specified disorders of bone, unspecified site; L89.326 Pressure-induced deep tissue damage of left buttock; L89.316 Pressure-induced deep tissue damage of right buttock; L98.8 Other specified disorders of the skin and subcutaneous tissue; S61.212A Laceration without foreign body of right middle finger without damage to nail, initial encounter; X58.XXXA Exposure to other specified factors, initial encounter; Y93.9 Activity, unspecified; L89.616 Pressure-induced deep tissue damage of right heel; L89.810 Pressure ulcer of head, unstageable; B37.49 Other urogenital candidiasis; E86.9 Volume depletion, unspecified; Y73.8 Miscellaneous gastroenterology and urology devices associated with adverse incidents, not elsewhere classified; E87.0 Hyperosmolality and hypernatremia; E87.4 Mixed disorder of acid-base balance; D50.0 Iron deficiency anemia secondary to blood loss (chronic)
CPT/HCPCS: 31720; 36410; 36415; 36569; 36600; 43246; 70450-TC; 71045-TC; 74018; 74150-TC; 76770-TC; 80048-TC; 80053-TC; 80061-TC; 80076-TC; 80202-TC; 81001; 82040-TC; 82550-TC; 82570-TC; 82962-TC; 83605-TC; 83735-TC; 83970; 84100-TC; 84134-TC; 84155; 84155-TC; 84165; 84300-TC; 84484-TC; 85025-TC; 85610-TC; 85730-TC; 86850-TC; 87040-TC; 87081-TC; 87086-TC; 88305-TC; 93971-TC; 94002-TC; 94003-TC; 94760-TC; 94762-TC; 94799-TC; 99082-TC; A4216; A4223; A4623; A6253; A6403; A7526; C9113; C9803; G0378; J0278; J0692; J1450; J1815; J1953; J2185; J2405; J2765; J3370; J3430; J3475; J3480; J3490; J7030; J7040; J7042; J7050; J7060; P9016; P9017; Q9963; Q9967

== ENCOUNTER 2023-08-22 09:28 | Inpatient (IN) | payer MEDICARE, MEDICAID ==
[2023-08-22] VITALS (20 sets, daily range): BP systolic 50–141; BP diastolic 35–82; TEMP 96.3; O2SAT 94–100
[~2023-08-22] VITALS: Ht 177.8 cm; Wt 123.8 kg
[~2023-08-22 09:28] MED LIST changes: -ACET160S GT; -ALBU2.5V38 IH; -ALLA266C2 TP; -AMIN30LI2 GT; -ASCO-352 GT; -ASPI-992 GT; +ASPI-992 RC; -ATOR80TA GT; -CALCIUM ALGINATE TP; +CEFT1VIA14 IV; -CHOL100043 GT; -COLL1POW2 MC; +COLL30OI TP; -CRAN3875 GT; -DOCU100T2 GT; -FAMO20TA80 GT; -FERR300L GT; -INSU100V39 SQ; -LACO10SO GT; +LACO200V IV; -LEVE100S GT; +LEVE500V IV; -LEVO50TA GT; -MAGN400O6 GT; -MELA5TAB GT; -MERO1VIA23 IV; -MULT9LIQ9 GT; -NA P133E RC; -NUT.237L31 GT; -ONDA-97 GT; -PETR113O TP; -POLY17PO4 GT; -POVI3780 TP; -SENN-261 GT; +VALP100V3 IV; -VALP250S4 GT; -VITA1TAB20 GT; -ZINC1CAP3 GT; -ZINC50TA71 GT
[2023-08-22] MEDS ORDERED: VANCOMYCIN 1 GM in IV D5W 250 ML IV ONE (10:00)
[2023-08-22] MEDS ORDERED: CEFEPIME 1 GM in IV D5W 50 ML IV ONE (10:00)
[2023-08-22] MEDS ORDERED: IV NS 0.9% 1,000 ML BAG IV ONE (10:00)
[2023-08-22 10:34] LABS: APPEARANCE,URINE CLOUDY (CLEAR); BILIRUBIN,URINE NEGATIVE (NEGATIVE); BLOOD, URINE 2+ Ery/uL (NEGATIVE); COLOR,URINE YELLOW (YELLOW); KETONES,URINE NEGATIVE (NEGATIVE); LEUKOCYTE ESTERASE ,URINE 3+ (NEGATIVE); NITRITE, URINE NEGATIVE (NEGATIVE); PROTEIN,URINE 1+ mg/dl (NEGATIVE); UGLUCOSE NEGATIVE (NEGATIVE); UROBILINOGEN,URINE 0.2 EU/dL (0.2)
[2023-08-22 10:38] LABS: HEMOGLOBIN 7.3 g/dL (13.5-17.5)
[2023-08-22 10:40] LABS: BASOPHILS % (AUTO) 0.2 % (0.0-2.0); EOSINOPHILS # (AUTO) 0.1 K/uL (0.0-0.7); EOSINOPHILS % (AUTO) 0.8 % (0.0-6.0); HEMATOCRIT 24 % (39-51); LYMPHOCYTES # (AUTO) 1.2 K/uL (0.8-4.8); LYMPHOCYTES % (AUTO) 6.8 % (20.0-44.0); MEAN CORPUSCULAR HEMOGLOBIN 31 PG (26.0-33.0); MEAN CORPUSCULAR HGB CONC 31 g/dl (31.0-36.0); MEAN CORPUSCULAR VOLUME 99 fL (80-96); MONOCYTES # (AUTO) 1.1 K/uL (0.1-1.30); MONOCYTES % (AUTO) 6.2 % (2.0-12.0); NEUTROPHILS # (AUTO) 15.7 K/uL (1.8-8.9); RED BLOOD CELL COUNT(AUTO) 2.37 MIL/uL (4.5-6.0); RED CELL DISTRIBUTION WIDTH 21.9 % (11.5-15.0); WHITE BLOOD COUNT (AUTO) 18.3 K/uL (4.3-11.0)
[2023-08-22 10:50] LABS: INR 1.03 (0.91-1.10); PARTIAL THROMBOPLASTIN TIME 48.3 SEC (24.3-34.3); PROTHROMBIN TIME 10.9 SECS (9.2-11.1)
[2023-08-22] MEDS ORDERED: COLL30OI TP (10:58)
[2023-08-22] MEDS ORDERED: INSU100V39 SQ (10:58)
[2023-08-22] MEDS ORDERED: GEL100GE TP (10:58)
[2023-08-22] MEDS ORDERED: BISA10SU11 RC (10:58)
[2023-08-22] MEDS ORDERED: BLOO-668 IN (10:58)
[2023-08-22] MEDS ORDERED: CEFT1VIA14 IV (10:58)
[2023-08-22] MEDS ORDERED: LACO200V IV (10:58)
[2023-08-22] MEDS ORDERED: ASPI300S RC (10:58)
[2023-08-22] MEDS ORDERED: CHLO473M5 MM (10:58)
[2023-08-22] MEDS ORDERED: LEVE500V2 IV (10:58)
[2023-08-22] MEDS ORDERED: VALP100V3 IV (10:58)
[2023-08-22] MEDS ORDERED: TPN IV (10:58)
[2023-08-22] MEDS ORDERED: ENOX40DI SQ (10:58)
[2023-08-22] MEDS ORDERED: POVI3780 TP (10:58)
[2023-08-22 11:00] LABS: PLATELET COUNT (AUTO) 34 K/uL (150-450)
[2023-08-22 11:03] LABS: ALANINE AMINOTRANSFERASE 13 U/L (12-78); ALKALINE PHOSPHATASE 95 U/L (46-116); ASPARTATE AMINOTRANSFERASE 31 U/L (15-37); BILIRUBIN,DIRECT 0.1 mg/dL (0.0-0.2); BILIRUBIN,TOTAL 0.1 mg/dL (0.2-1.0); CALCIUM, SERUM 8.5 mg/dL (8.5-10.1); CARBON DIOXIDE 16 mmol/L (21-32); CHLORIDE 107 mmol/L (98-107); CREATININE 0.6 mg/dL (0.6-1.3); GLUCOSE 73 mg/dL (74-106); POTASSIUM 4.3 mmol/L (3.5-5.1); SODIUM SERUM 133 mmol/L (136-145); TOTAL PROTEIN, SERUM 5.5 g/dL (6.4-8.2); UREA NITROGEN, BLOOD 36 mg/dL (7-18)
[2023-08-22 11:08] LABS: LACTIC ACID 1.6 mmol/L (0.4-2.0)
[2023-08-22 11:15] LABS: ALBUMIN 0.9 g/dL (3.4-5.0)
[2023-08-22 11:50] LABS: ADD URINE CULTURE YES; BACTERIA,URINE 2+ /HPF (None Seen); MUCUS,URINE Moderate /LPF (None Seen); SQUAMOUS EPITHELIAL CELL,UR None Seen /HPF (None Seen); WBC,URINE 21-50 /HPF (0-3); YEAST,URINE Many /HPF (None Seen)
[2023-08-22] MEDS ORDERED: NOREPINEPHRINE 8 MG in IV NS 0.9% 250 ML IV ONE (13:00)
[2023-08-22] MEDS ORDERED: NOREPINEPHRINE 8 MG in IV NS 0.9% 242 ML IV PRN (13:30)
[2023-08-22] MEDS ORDERED: NOREPINEPHRINE 8 MG in IV NS 0.9% 250ML IV PRN (13:30)
[2023-08-22 14:12] LABS: ANISOCYTOSIS 1+; BAND % (MANUAL) 6 % (0.0-5.0); EOSINOPHILS % (MANUAL) 1 % (0-4); LYMPHOCYTES % (MANUAL) 11 % (16-48); MONOCYTES % (MANUAL) 9 % (0-11.0); NEUTROPHILS % (MANUAL) 73 (42-76); PLATELET ESTIMATE DECREASED
[2023-08-22 14:14] LABS: OVALOCYTES 1+
[2023-08-22] MEDS ORDERED: ACETAMINOPHEN 650 MG/SUPP.RECT RC PRN (16:30)
[2023-08-22] MEDS ORDERED: ONDANSETRON HCL/PF 4 MG/2 ML VIAL IVP PRN (16:30)
[2023-08-22] MEDS ORDERED: Z GUARD REMEDY 4 OZ OINT TP PRN (16:30)
[2023-08-22] MEDS ORDERED: LACOSAMIDE 200 MG/20 ML VIAL IV SCH (17:00)
[2023-08-22] MEDS ORDERED: LEVETIRACETAM (500MG) 500 MG/5 ML VIAL IV SCH (17:00)
[2023-08-22] MEDS ORDERED: VANCOMYCIN 1.25 GM in IV D5W 250 ML IV ONE (17:00)
[2023-08-22] MEDS ORDERED: CEFEPIME 2 GM in IV D5W 100 ML IV SCH (17:30)
[2023-08-22] MEDS: THERAHONEY GEL 1.5 OZ TUBE TP SCH (17:30)
[2023-08-22] MEDS ORDERED: IV NS 0.9% 1,000 ML BAG IV PRN (18:00)
[2023-08-22] MEDS: ALBUTEROL FS 2.5 MG/0.5 ML VIAL.NEB NEB SCH (19:57)
[2023-08-22] MEDS: CEFEPIME 2 GM in IV D5W 100 ML IV SCH (20:00)
[2023-08-22] MEDS ORDERED: VALPROATE 500 MG/5 ML VIAL IV SCH (21:00)
[2023-08-22] MEDS: LEVETIRACETAM (500MG) 1,500 MG in IV NS 0.9% 85 ML IV SCH (21:00)
[2023-08-22] MEDS: VALPROATE 1,000 MG in IV D5W 100 ML IV SCH (21:03)
[2023-08-22] MEDS: CHLORHEXIDINE GLUCONATE 15 ML UDC MM SCH (21:04)
[2023-08-22] MEDS: LACOSAMIDE 100 MG in IV NS 0.9% 50 ML IV SCH (21:44)
[2023-08-22] MEDS: NOREPINEPHRINE 8 MG in IV NS 0.9% 242 ML IV PRN (22:48)
[2023-08-23] VITALS (87 sets, daily range): BP systolic 63–130; BP diastolic 32–79; TEMP 96.2–97.6; O2SAT 92–100
[2023-08-23] MEDS: ALBUTEROL FS 2.5 MG/0.5 ML VIAL.NEB NEB SCH ×4 (01:23→19:44)
[2023-08-23] MEDS: NOREPINEPHRINE 8 MG in IV NS 0.9% 242 ML IV PRN ×2 (01:50→05:09)
[2023-08-23] MEDS: VALPROATE 1,000 MG in IV D5W 100 ML IV SCH ×3 (04:24→21:20)
[2023-08-23 04:31] LABS: BASOPHILS # (AUTO) 0.1 K/uL (0.0-0.2); BASOPHILS % (AUTO) 0.2 % (0.0-2.0); EOSINOPHILS # (AUTO) 0.1 K/uL (0.0-0.7); EOSINOPHILS % (AUTO) 0.2 % (0.0-6.0); HEMATOCRIT 22 % (39-51); HEMOGLOBIN 7.1 g/dL (13.5-17.5); LYMPHOCYTES # (AUTO) 1.2 K/uL (0.8-4.8); MEAN CORPUSCULAR HEMOGLOBIN 32 PG (26.0-33.0); MEAN CORPUSCULAR HGB CONC 32 g/dl (31.0-36.0); MEAN CORPUSCULAR VOLUME 99 fL (80-96); MONOCYTES # (AUTO) 1.9 K/uL (0.1-1.30); MONOCYTES % (AUTO) 6.4 % (2.0-12.0); NEUTROPHILS # (AUTO) 26.3 K/uL (1.8-8.9); NEUTROPHILS % (AUTO) 89.2 % (43.0-81.0); RED BLOOD CELL COUNT(AUTO) 2.22 MIL/uL (4.5-6.0); RED CELL DISTRIBUTION WIDTH 22.2 % (11.5-15.0); WHITE BLOOD COUNT (AUTO) 29.4 K/uL (4.3-11.0)
[2023-08-23 04:42] LABS: CALCIUM, SERUM 8.4 mg/dL (8.5-10.1); CREATININE 0.7 mg/dL (0.6-1.3); MAGNESIUM 1.4 mg/dL (1.8-2.4); PHOSPHORUS 2.9 mg/dL (2.5-4.9); POTASSIUM 4.1 mmol/L (3.5-5.1)
[2023-08-23 05:21] LABS: PLATELET COUNT (AUTO) 44 K/uL (150-450)
[2023-08-23 08:10] LABS: BAND % (MANUAL) 10 % (0.0-5.0); BASOPHILS % (MANUAL) 0 % (0.0-2.0); EOSINOPHILS % (MANUAL) 1 % (0-4); LYMPHOCYTES % (MANUAL) 4 % (16-48); MONOCYTES % (MANUAL) 5 % (0-11.0); NEUTROPHILS % (MANUAL) 80 (42-76); PLATELET ESTIMATE DECREASED
[2023-08-23 08:11] LABS: ANISOCYTOSIS 1+
[2023-08-23] MEDS: NOREPINEPHRINE 32 MG in IV NS 0.9% 218 ML IV PRN ×2 (08:14→19:40)
[2023-08-23] MEDS: LACOSAMIDE 100 MG in IV NS 0.9% 50 ML IV SCH ×2 (09:16→20:00)
[2023-08-23] MEDS: CEFEPIME 2 GM in IV D5W 100 ML IV SCH ×2 (09:16→20:35)
[2023-08-23] MEDS: PANTOPRAZOLE 40 MG VIAL IV SCH (09:31)
[2023-08-23] MEDS: CHLORHEXIDINE GLUCONATE 15 ML UDC MM SCH ×2 (09:31→21:20)
[2023-08-23] MEDS: DAKINS QUARTER STRENGTH (0.125%) 480 ML BOTTLE TOP SCH ×3 (09:32→21:20)
[2023-08-23] MEDS: LEVETIRACETAM (500MG) 1,500 MG in IV NS 0.9% 85 ML IV SCH ×2 (09:34→21:20)
[2023-08-23] MEDS: Magnesium 1GM/D5W 100ML PREMIX 100 ML IV SCH ×4 (11:12→16:46)
[2023-08-23] MEDS: THERAHONEY GEL 1.5 OZ TUBE TP SCH (11:13)
[2023-08-23] MEDS: FLUCONAZOLE IN NS 100 MG in PREMIX 1 EA IV SCH ×2 (15:19)
[2023-08-23 19:55] LABS: URINE SODIUM, RANDOM 10 mmol/l (40-220)
[2023-08-24] VITALS (97 sets, daily range): BP systolic 79–112; BP diastolic 34–66; TEMP 97.1–98.9; O2SAT 92–100
[2023-08-24] MEDS: NOREPINEPHRINE 32 MG in IV NS 0.9% 218 ML IV PRN ×5 (02:11→22:16)
[2023-08-24] MEDS: ALBUTEROL FS 2.5 MG/0.5 ML VIAL.NEB NEB SCH ×4 (02:12→19:36)
[2023-08-24] MEDS: VALPROATE 1,000 MG in IV D5W 100 ML IV SCH ×3 (05:00→20:30)
[2023-08-24 05:03] LABS: BILIRUBIN,TOTAL 0.3 mg/dL (0.2-1.0); CALCIUM, SERUM 8.5 mg/dL (8.5-10.1); CREATININE 0.8 mg/dL (0.6-1.3); MAGNESIUM 2.1 mg/dL (1.8-2.4); PHOSPHORUS 3.7 mg/dL (2.5-4.9); POTASSIUM 4.4 mmol/L (3.5-5.1); TOTAL PROTEIN, SERUM 5.4 g/dL (6.4-8.2)
[2023-08-24 05:15] LABS: THYROID STIMULATING HORMONE 21.706 uIU/mL (0.358-3.74); URIC ACID 6.9 mg/dL (2.6-7.2)
[2023-08-24 05:30] LABS: ALBUMIN 0.8 g/dL (3.4-5.0)
[2023-08-24 06:47] LABS: BASOPHILS # (AUTO) 0.1 K/uL (0.0-0.2); BASOPHILS % (AUTO) 0.3 % (0.0-2.0); EOSINOPHILS # (AUTO) 0.6 K/uL (0.0-0.7); HEMATOCRIT 21 % (39-51); LYMPHOCYTES # (AUTO) 1.1 K/uL (0.8-4.8); LYMPHOCYTES % (AUTO) 3.3 % (20.0-44.0); MEAN CORPUSCULAR HEMOGLOBIN 32 PG (26.0-33.0); MEAN CORPUSCULAR HGB CONC 30 g/dl (31.0-36.0); MEAN CORPUSCULAR VOLUME 108 fL (80-96); MONOCYTES # (AUTO) 0.5 K/uL (0.1-1.30); MONOCYTES % (AUTO) 1.5 % (2.0-12.0); NEUTROPHILS # (AUTO) 29.7 K/uL (1.8-8.9); NEUTROPHILS % (AUTO) 92.9 % (43.0-81.0)
[2023-08-24 06:56] LABS: HEMOGLOBIN 6.2 g/dL (13.5-17.5); PLATELET COUNT (AUTO) 42 K/uL (150-450); RED BLOOD CELL COUNT(AUTO) 1.94 MIL/uL (4.5-6.0)
[2023-08-24] MEDS: CHLORHEXIDINE GLUCONATE 15 ML UDC MM SCH ×2 (08:07→20:42)
[2023-08-24] MEDS: CEFEPIME 2 GM in IV D5W 100 ML IV SCH ×2 (08:07→20:00)
[2023-08-24] MEDS: PANTOPRAZOLE 40 MG VIAL IV SCH (08:07)
[2023-08-24] MEDS: THERAHONEY GEL 1.5 OZ TUBE TP SCH (08:08)
[2023-08-24] MEDS: DAKINS QUARTER STRENGTH (0.125%) 480 ML BOTTLE TOP SCH (08:09)
[2023-08-24] MEDS: LACOSAMIDE 100 MG in IV NS 0.9% 50 ML IV SCH ×2 (08:48→21:04)
[2023-08-24] MEDS: LEVETIRACETAM (500MG) 1,500 MG in IV NS 0.9% 85 ML IV SCH ×2 (08:49→21:03)
[2023-08-24] MEDS ORDERED: SODIUM BICARBONATE SYR 50 MEQ/50 ML DISP.SYRIN IV STA (10:43)
[2023-08-24 10:58] LABS: ANISOCYTOSIS 1+; BAND % (MANUAL) 7 % (0.0-5.0); BASOPHILS % (MANUAL) 0 % (0.0-2.0); EOSINOPHILS % (MANUAL) 1 % (0-4); HYPOCHROMASIA 1+; LYMPHOCYTES % (MANUAL) 6 % (16-48); MONOCYTES % (MANUAL) 4 % (0-11.0); NEUTROPHILS % (MANUAL) 82 (42-76); PLATELET ESTIMATE DECREASED
[2023-08-24] MEDS ORDERED: VANCOMYCIN 1 GM in IV D5W 250ml IV SCH (11:00)
[2023-08-24] MEDS ORDERED: FUROSEMIDE 100 MG/10 ML VIAL IV ONE (12:30)
[2023-08-24] MEDS ORDERED: TPN/PPN PER PHARMACY IV PRN (13:00)
[2023-08-24] MEDS ORDERED: TPN BAG #1 IV SCH ×8 (13:30→15:22)
[2023-08-24] MEDS: FLUCONAZOLE IN NS 100 MG in PREMIX 1 EA IV SCH ×2 (13:34)
[2023-08-24] MEDS ORDERED: Sodium Bicarbonate 100 MEQ in IV D5W 1,000 ML IV SCH (14:00)
[2023-08-24 15:54] LABS: OSMOLALITY,URINE 164 mOS/kg (340-1090)
[2023-08-24] MEDS: Sodium Bicarbonate 100 MEQ in IV D5W 1,000 ML IV SCH (16:05)
[2023-08-24] MEDS ORDERED: DEXTROSE 50%-WATER 50 ML DISP.SYRIN IV PRN (16:30)
[2023-08-24] MEDS: BLOOD SUGAR DIAGNOSTIC 1 EACH STRIP IN SCH (18:07)
[2023-08-24] MEDS: MUPIROCIN OINT 2% 22 GM TUBE NS SCH (20:39)
[2023-08-25] VITALS (79 sets, daily range): BP systolic 66–124; BP diastolic 35–81; TEMP 94.5–97.7; O2SAT 67–99
[2023-08-25] MEDS: BLOOD SUGAR DIAGNOSTIC 1 EACH STRIP IN SCH ×4 (00:22→18:19)
[2023-08-25] MEDS: INSULIN REGULAR, HUMAN 100 UNIT/ML 3 ML VIAL SQ PRN ×2 (00:22→06:15)
[2023-08-25] MEDS: ALBUTEROL FS 2.5 MG/0.5 ML VIAL.NEB NEB SCH ×4 (01:54→18:00)
[2023-08-25] MEDS: NOREPINEPHRINE 32 MG in IV NS 0.9% 218 ML IV PRN ×3 (04:15→16:14)
[2023-08-25] MEDS: VALPROATE 1,000 MG in IV D5W 100 ML IV SCH ×2 (04:17→12:52)
[2023-08-25 04:57] LABS: BASOPHILS # (AUTO) 0.2 K/uL (0.0-0.2); BASOPHILS % (AUTO) 0.5 % (0.0-2.0); BILIRUBIN,TOTAL 0.4 mg/dL (0.2-1.0); CALCIUM, SERUM 8.5 mg/dL (8.5-10.1); CREATININE 0.9 mg/dL (0.6-1.3); EOSINOPHILS % (AUTO) 0.1 % (0.0-6.0); HEMATOCRIT 24 % (39-51); HEMOGLOBIN 7.4 g/dL (13.5-17.5); LYMPHOCYTES # (AUTO) 0.6 K/uL (0.8-4.8); LYMPHOCYTES % (AUTO) 1.7 % (20.0-44.0); MAGNESIUM 1.9 mg/dL (1.8-2.4); MEAN CORPUSCULAR HEMOGLOBIN 30 PG (26.0-33.0); MEAN CORPUSCULAR HGB CONC 31 g/dl (31.0-36.0); MEAN CORPUSCULAR VOLUME 98 fL (80-96); MONOCYTES # (AUTO) 0.5 K/uL (0.1-1.30); MONOCYTES % (AUTO) 1.4 % (2.0-12.0); NEUTROPHILS # (AUTO) 34.8 K/uL (1.8-8.9); NEUTROPHILS % (AUTO) 96.3 % (43.0-81.0); PHOSPHORUS 3.6 mg/dL (2.5-4.9); POTASSIUM 3.6 mmol/L (3.5-5.1); RED BLOOD CELL COUNT(AUTO) 2.45 MIL/uL (4.5-6.0); RED CELL DISTRIBUTION WIDTH 20.4 % (11.5-15.0); TOTAL PROTEIN, SERUM 5.1 g/dL (6.4-8.2)
[2023-08-25 05:01] LABS: ALBUMIN 0.7 g/dL (3.4-5.0); PLATELET COUNT (AUTO) 16 K/uL (150-450); WHITE BLOOD COUNT (AUTO) 36.2 K/uL (4.3-11.0)
[2023-08-25 06:54] LABS: ABG BASE EXCESS -17.8 mmol/L; ABG OXYGEN SATURATION 92.1 % (92.0-98.5); ABG PCO2 40.6 mmHg (35.0-45.0); ABG PH 7.056 (7.350-7.450); ABG PO2 75.5 mmHg (75.0-100.0); ABG TOTAL HEMOGLOBIN 6.9 G/dL (13.5-18.0); COHb 0.1 % (0.5-1.5); MetHb 0.8 % (0.0-1.5); O2Hb 91.3 % (94.0-97.0); SITE, ABG Right Radial; VENT MODE, BG AC 12 500 +5 70%
[2023-08-25 06:54] LABS: ABG BASE EXCESS -12.4 mmol/L; ABG OXYGEN SATURATION 96.7 % (92.0-98.5); ABG PCO2 33.7 mmHg (35.0-45.0); ABG PH 7.235 (7.350-7.450); ABG PO2 89.7 mmHg (75.0-100.0); ABG TOTAL HEMOGLOBIN 8.1 G/dL (13.5-18.0); AaDO2 373.2 mmHg; COHb 0.5 % (0.5-1.5); MetHb 0.4 % (0.0-1.5); O2Hb 95.8 % (94.0-97.0); VENT MODE, BG AC 28 550 +5 70%
[2023-08-25] MEDS: LEVETIRACETAM (500MG) 1,500 MG in IV NS 0.9% 85 ML IV SCH ×3 (08:21→09:40)
[2023-08-25] MEDS: CEFEPIME 2 GM in IV D5W 100 ML IV SCH (08:21)
[2023-08-25] MEDS: MUPIROCIN OINT 2% 22 GM TUBE NS SCH (08:22)
[2023-08-25] MEDS: DAKINS QUARTER STRENGTH (0.125%) 480 ML BOTTLE TOP SCH ×2 (08:22→08:23)
[2023-08-25] MEDS: LACOSAMIDE 100 MG in IV NS 0.9% 50 ML IV SCH ×2 (08:22→08:36)
[2023-08-25] MEDS: THERAHONEY GEL 1.5 OZ TUBE TP SCH (08:23)
[2023-08-25] MEDS: PANTOPRAZOLE 40 MG VIAL IV SCH (08:28)
[2023-08-25] MEDS: CHLORHEXIDINE GLUCONATE 15 ML UDC MM SCH (08:28)
[2023-08-25] MEDS ORDERED: SODIUM BICARBONATE SYR 50 MEQ/50 ML DISP.SYRIN IV STA (08:33)
[2023-08-25] MEDS ORDERED: SODIUM BICARBONATE SYR 50 MEQ/50 ML DISP.SYRIN ONE (08:38)
[2023-08-25] MEDS ORDERED: TPN BAG #1 IV SCH ×4 (10:30)
[2023-08-25 10:43] LABS: BAND % (MANUAL) 9 % (0.0-5.0); BASOPHILS % (MANUAL) 0 % (0.0-2.0); EOSINOPHILS % (MANUAL) 0 % (0-4); LYMPHOCYTES % (MANUAL) 6 % (16-48); MONOCYTES % (MANUAL) 4 % (0-11.0); NEUTROPHILS % (MANUAL) 81 (42-76); NUCLEATED RED BLOOD CELLS 31.2 /100WBC (0.0-0.0); PLATELET ESTIMATE DECREASED
[2023-08-25 10:44] LABS: ANISOCYTOSIS 1+; HYPOCHROMASIA 1+; OVALOCYTES 1+
[2023-08-25] MEDS: Sodium Bicarbonate 100 MEQ in IV D5W 1,000 ML IV SCH (12:51)
[2023-08-25] MEDS ORDERED: TPN BAG #2 IV SCH ×4 (13:30)
[2023-08-25] MEDS: FLUCONAZOLE IN NS 100 MG in PREMIX 1 EA IV SCH ×2 (13:49)
[2023-08-25] MEDS ORDERED: Magnesium 1GM/D5W 100ML PREMIX 100 ML IV SCH (14:00)
[2023-08-25] MEDS ORDERED: POTASSIUM CL. PREMIX PERIPHER. 50 ML IV SCH (15:00)
[2023-08-25] MEDS ORDERED: Sodium Bicarbonate 50 MEQ/50 ML VIAL IV ONE (22:30)
[2023-08-25] MEDS ORDERED: EPINEPHRINE (1:10,000) SYRINGE 1 MG/10 ML DISP.SYRIN IVP ONE (22:30)
[2023-08-25] MEDS ORDERED: VANCOMYCIN 1 GM in IV D5W 250ml IV SCH (23:00)
[2023-08-26] MEDS ORDERED: TPN BAG #3 IV SCH ×4 (06:40)
[2023-08-26 08:20] LABS: ABG BASE EXCESS -16.1 mmol/L; ABG OXYGEN SATURATION 83.1 % (92.0-98.5); ABG PCO2 46.3 mmHg (35.0-45.0); ABG PH 7.071 (7.350-7.450); ABG PO2 53.7 mmHg (75.0-100.0); COHb 0.7 % (0.5-1.5); MetHb 0.4 % (0.0-1.5); O2Hb 82.2 % (94.0-97.0); SITE, ABG Left Radial; VENT MODE, BG AC 28 550 +5 100%
[2023-08-27] MEDS ORDERED: TPN BAG #4 IV SCH ×4
== END 2023-08-25 22:31 | DRG 871 ==
LOC: ER 09:29 → TRANSITION 15:55 → ICU 17:29
PROC: 5A1945Z Respiratory Ventilation, 24-96 Consecutive Hours (ICD-10-PCS; principal; 2023-08-22)
PROC: 30233N1 Transfusion of Nonautologous Red Blood Cells into Peripheral Vein, Percutaneous Approach (ICD-10-PCS; 2023-08-24)
PROC: 5A12012 Performance of Cardiac Output, Single, Manual (ICD-10-PCS; 2023-08-25)
DX: A41.9 Sepsis, unspecified organism (principal); E43 Unspecified severe protein-calorie malnutrition; L89.154 Pressure ulcer of sacral region, stage 4; J15.69 Pneumonia due to other Gram-negative bacteria; R53.2 Functional quadriplegia; R65.21 Severe sepsis with septic shock; N17.0 Acute kidney failure with tubular necrosis; K28.4 Chronic or unspecified gastrojejunal ulcer with hemorrhage; J96.10 Chronic respiratory failure, unspecified whether with hypoxia or hypercapnia; D68.69 Other thrombophilia; Z99.11 Dependence on respirator [ventilator] status; E22.2 Syndrome of inappropriate secretion of antidiuretic hormone; B37.49 Other urogenital candidiasis; G93.49 Other encephalopathy; Z16.24 Resistance to multiple antibiotics; R13.10 Dysphagia, unspecified; D64.9 Anemia, unspecified; D69.6 Thrombocytopenia, unspecified; E03.9 Hypothyroidism, unspecified; E11.22 Type 2 diabetes mellitus with diabetic chronic kidney disease; E78.5 Hyperlipidemia, unspecified; E83.42 Hypomagnesemia; E88.09 Other disorders of plasma-protein metabolism, not elsewhere classified; G40.909 Epilepsy, unspecified, not intractable, without status epilepticus; E87.70 Fluid overload, unspecified; N18.9 Chronic kidney disease, unspecified; M89.8X9 Other specified disorders of bone, unspecified site; R00.1 Bradycardia, unspecified; K29.70 Gastritis, unspecified, without bleeding; Z79.4 Long term (current) use of insulin; Z79.82 Long term (current) use of aspirin; Z87.440 Personal history of urinary (tract) infections; Z86.718 Personal history of other venous thrombosis and embolism; Z85.828 Personal history of other malignant neoplasm of skin; Z87.891 Personal history of nicotine dependence; Z93.0 Tracheostomy status; Z93.1 Gastrostomy status; L89.810 Pressure ulcer of head, unstageable; S00.422A Blister (nonthermal) of left ear, initial encounter; X58.XXXA Exposure to other specified factors, initial encounter; Y93.9 Activity, unspecified; Y92.129 Unspecified place in nursing home as the place of occurrence of the external cause; L89.616 Pressure-induced deep tissue damage of right heel; L98.8 Other specified disorders of the skin and subcutaneous tissue; Z79.899 Other long term (current) drug therapy; S61.212A Laceration without foreign body of right middle finger without damage to nail, initial encounter; I12.9 Hypertensive chronic kidney disease with stage 1 through stage 4 chronic kidney disease, or unspecified chronic kidney disease
CPT/HCPCS: 31720; 36415; 36600; 71045-TC; 80048-TC; 80053-TC; 80076-TC; 80202-TC; 81001; 82533; 82962-TC; 83605-TC; 83735-TC; 83935-TC; 84100-TC; 84134-TC; 84300-TC; 84443-TC; 84478-TC; 84484-TC; 84550-TC; 85025-TC; 85730-TC; 86850-TC; 87040-TC; 87081-TC; 87086-TC; 87186-TC; 92950-TC; 94003-TC; 94762-TC; 94799-TC; A4216; A4217; A4223; A4623; A6253; A6403; C9113; G0378; J0171; J0692; J1450; J1815; J1940; J1953; J3370; J3475; J3480; J3490; J7030; J7050; J7060; J7070; P9016